=== PATIENT | male | born 1965 | race Caucasian/White ===

== ENCOUNTER 2024-04-10 12:12 | Inpatient (IN) | payer BC ==
--- NOTE | 2024-04-10 12:26 | ED ---
General Adult HPI - General Chief complaint: Syncope Stated complaint: AFIB Time Seen by Provider: 04/10/24 12:14 Source: patient, EMS, RN notes reviewed Mode of arrival: EMS Limitations: no limitations - History of Present Illness Initial comments: 58-year-old male presents emergency department via EMS from urgent care with chief complaint A-fib RVR. Patient states he has not felt well recently he was recently diagnosed with pneumonia. He states he woke up this morning diaphoretic, weak short of breath slightly dizzy. He went to urgent care was f ound to be in A-fib RVR he does but that he has a history of A-fib he is on flecainide he sees Dr. Quesada. Patient states that he has no history of CHF. Patient states he has had no chest pain. Patient denies any nausea vomiting diarrhea he does admit that he is on Lipitor, metformin and Xarelto along with his flecainide - Related Data Home Medications Medication Instructions Recorded Confirmed Albuterol Sulfate [Albuterol 2 puff INHALATION RT-BID 04/10/24 04/10/24 Sulfate Hfa] Atorvastatin [Lipitor] 10 mg PO DAILY 04/10/24 04/10/24 Azithromycin [Zithromax Z Pack] See Taper PO DAILY 04/10/24 04/10/24 Flecainide [Tambocor] 50 mg PO BID 04/10/24 04/10/24 Metoprolol Succinate (ER) [Toprol 100 mg PO DAILY 04/10/24 04/10/24 Xl] Multivitamins, Thera [Multivitamin 1 tab PO DAILY 04/10/24 04/10/24 (formulary)] Rivaroxaban [Xarelto] 20 mg PO DAILY 04/10/24 04/10/24 Semaglutide [Ozempic] 2 mg SQ TH 04/10/24 04/10/24 Testosterone [Axiron] 30 mg TOPICAL DAILY 04/10/24 04/10/24 Valsartan 320 mg PO DAILY 04/10/24 04/10/24 metFORMIN HCL 1,000 mg PO BID 04/10/24 04/10/24 Allergies Allergy/AdvReac Type Severity Reaction Status Date / Time lisinopril AdvReac Cough Verified 04/10/24 14:51 Review of Systems ROS Statement: Those systems with pertinent positive or pertinent negative responses have been documented in the HPI. ROS Other: All systems not noted in ROS Statement are negative. Past Medical History Past Medical History: Atrial Fibrillation, Diabetes Mellitus History of Any Multi-Drug Resistant Organisms: None Reported Past Surgical History: Hernia Repair, Tonsillectomy Past Psychological History: No Psychological Hx Reported Smoking Status: Never smoker Past Alcohol Use History: Rare Past Drug Use History: None Reported General Exam Limitations: no limitations General appearance: alert, in no apparent distress Head exam: Present: atraumatic, normocephalic, normal inspection Eye exam: Present: normal appearance, PERRL, EOMI. Absent: scleral icterus, conjunctival injection, periorbital swelling ENT exam: Present: normal exam, mucous membranes moist Neck exam: Present: normal inspection. Absent: tenderness, meningismus, lymphadenopathy Respiratory exam: Present: normal lung sounds bilaterally. Absent: respiratory distress, wheezes, rales, rhonchi, stridor Cardiovascular Exam: Present: tachycardia, irregular rhythm. Absent: regular rate, normal rhythm GI/Abdominal exam: Present: soft, normal bowel sounds. Absent: distended, tenderness, guarding, rebound, rigid Neurological exam: Present: alert, oriented X3 Course Vital Signs 04/10/24 04/10/24 04/10/24 12:13 12:37 12:44 Temperature 98.1 F Pulse Rate 161 H 154 H 142 H Pulse Rate [ Bilateral Radial] Respiratory 18 18 18 Rate Blood Pressure 99/74 115/72 81/60 Blood Pressure [Right Arm] O2 Sat by Pulse 97 98 97 Oximetry 04/10/24 04/10/24 04/10/24 12:51 13:18 13:48 Temperature Pulse Rate 150 H 130 H 108 H Pulse Rate [ Bilateral Radial] Respiratory 18 18 Rate Blood Pressure 88/77 108/74 91/67 Blood Pressure [Right Arm] O2 Sat by Pulse 97 Oximetry 04/10/24 04/10/24 04/10/24 14:10 15:00 15:12 Temperature Pulse Rate 125 H 116 H 103 H Pulse Rate [ Bilateral Radial] Respiratory 18 20 Rate Blood Pressure 105/73 106/73 Blood Pressure [Right Arm] O2 Sat by Pulse 98 98 Oximetry 04/10/24 04/10/24 04/10/24 15:22 15:30 16:00 Temperature Pulse Rate 111 H 125 H 112 H Pulse Rate [ Bilateral Radial] Respiratory 20 20 Rate Blood Pressure 93/61 91/71 Blood Pressure [Right Arm] O2 Sat by Pulse 96 97 Oximetry 04/10/24 04/10/24 04/10/24 16:30 17:00 17:30 Temperature Pulse Rate 116 H 109 H 102 H Pulse Rate [ Bilateral Radial] Respiratory 18 20 18 Rate Blood Pressure 100/67 97/59 91/69 Blood Pressure [Right Arm] O2 Sat by Pulse 97 95 97 Oximetry 04/10/24 04/10/24 04/10/24 18:15 20:00 20:40 Temperature 98.9 F Pulse Rate 98 115 H Pulse Rate [ 105 H Bilateral Radial] Respiratory 18 22 Rate Blood Pressure 100/67 Blood Pressure 102/86 [Right Arm] O2 Sat by Pulse 95 92 L Oximetry 04/10/24 04/11/24 04/11/24 20:51 00:00 04:00 Temperature 98.0 F 98.0 F Pulse Rate 118 H Pulse Rate [ 97 101 H Bilateral Radial] Respiratory 18 20 Rate Blood Pressure Blood Pressure 114/68 130/62 [Right Arm] O2 Sat by Pulse 91 L 91 L Oximetry 04/11/24 04/11/24 04/11/24 08:00 08:57 09:09 Temperature 97.8 F Pulse Rate 112 H 117 H Pulse Rate [ 94 Bilateral Radial] Respiratory 17 Rate Blood Pressure Blood Pressure 113/61 [Right Arm] O2 Sat by Pulse 90 L 92 L Oximetry 04/11/24 04/11/24 04/11/24 12:00 14:06 14:50 Temperature 98.3 F Pulse Rate 105 H 102 H Pulse Rate [ 97 Bilateral Radial] Respiratory 20 18 Rate Blood Pressure 97/61 Blood Pressure 110/73 [Right Arm] O2 Sat by Pulse 92 L 94 L Oximetry 04/11/24 15:10 Temperature Pulse Rate 96 Pulse Rate [ Bilateral Radial] Respiratory Rate Blood Pressure Blood Pressure [Right Arm] O2 Sat by Pulse Oximetry EKG Findings - EKG Comments: EKG Findings:: EKG performed at 12: 18 A-fib with RVR rate of 155 QRS 93 QT/QTc 269/356 - EKG Results: EKG: interpreted by DARA Medical Decision Making - Medical Decision Making Was pt. sent in by a medical professional or institution (, PA, COMMUNITY OUTREACH SPECIALIST, urgent care, hospital, or longterm...) When possible be specific @ -Urgent care Did you speak to anyone other than the patient for history (EMS, parent, family, police, friend...)? What history was obtained from this source @ -No Did you review nursing and triage notes (agree or disagree)? Why? @ -I reviewed and agree with nursing and triage notes Were old charts reviewed (outside hosp., previous admission, EMS record, old EKG, old radiological studies, urgent care reports/EKG's, longterm records)? Report findings @ -No old charts were reviewed Differential Diagnosis (chest pain, altered mental status, abdominal pain women, abdominal pain men, vaginal bleeding, weakness, fever, dyspnea, syncope, headache, dizziness, GI bleed, back pain, seizure, CVA, palpatations, mental health, musculoskeletal)? @ -Differential Dyspnea: Coronary syndrome, arrhythmia, tamponade, asthma, COPD, pulmonary embolism, pneumonia, pneumothorax, pulmonary effusion, anaphylaxis, diabetic ketoacidosis, flailed chest, pulmonary contusion, diaphragmatic rupture, anemia, neuromuscular, this is not meant to be an all-inclusive list. EKG interpreted by me (3pts min.). @ -As above X-rays interpreted by me (1pt min.). @ -X-ray shows retrocardiac pneumonia CT interpreted by me (1pt min.). @ -None done U/S interpreted by me (1pt. min.). @ -None done What testing was considered but not performed or refused? (CT, X-rays, U/S, labs)? Why? @ -None What meds were considered but not given or refused? Why? @ -None Did you discuss the management of the patient with other professionals (professionals i.e. , PA, COMMUNITY OUTREACH SPECIALIST, lab, RT, psych nurse, nursing home social worker, base filler operator, teacher, founder and chief technical officer, case management manager)? Give summary @ -EM for admission Was smoking cessation discussed for >3mins.? @ -No Was critical care preformed (if so, how long)? @ -35 minutes Were there social determinants of health that impacted care today? How? (Homelessness, low income, unemployed, alcoholism, drug addiction, transportation, low edu. Level, literacy, decrease access to med. care, usp, rehab)? @ -No Was there de-escalation of care discussed even if they declined (Discuss DNR or withdrawal of care, Hospice)? DNR status @ -No What co-morbidities impacted this encounter? (DM, HTN, Smoking, COPD, CAD, Cancer, CVA, ARF, Chemo, Hep., AIDS, mental health diagnosis, sleep apnea, morbid obesity)? @ -A-fib Was patient admitted / discharged? Hospital course, mention meds given and route, prescriptions, significant lab abnormalities, going to OR and other pertinent info. @ -Admitted patient is found to have A-fib RVR along with retrocardiac pneumonia. Patient started on Cardizem, IV fluids, antibiotics with consults with cardiology, pulmonary Undiagnosed new problem with uncertain prognosis? @ -No Drug Therapy requiring intensive monitoring for toxicity (Heparin, Nitro, Insulin, Cardizem)? @ -Cardizem Were any procedures done? @ -No Diagnosis/symptom? @ -A-fib RVR, pneumonia Acute, or Chronic, or Acute on Chronic? @ -Acute Uncomplicated (without systemic symptoms) or Complicated (systemic symptoms)? @ -Complicated Side effects of treatment? @ -No Exacerbation, Progression, or Severe Exacerbation? @ -No Poses a threat to life or bodily function? How? (Chest pain, USA, AR, pneumonia, PE, COPD, DKA, ARF, appy, cholecystitis, CVA, Diverticulitis, Homicidal, Suicid al, threat to staff... and all critical care pts) @ -Yes pneumonia, A-fib respiratory failure - Lab Data Result diagrams: 04/11/24 06:09 04/11/24 06:09 Lab Results 04/10/24 04/10/24 04/10/24 Range/Units 12:29 12:29 12:29 WBC 18.2 H (3.8-10.6) k/uL RBC 4.37 (4.30-5.90) m/uL Hgb 12.6 L (13.0-17.5) gm/dL Hct 39.6 (39.0-53.0) % MCV 90.7 (80.0-100.0) fL MCH 28.9 (25.0-35.0) pg MCHC 31.9 (31.0-37.0) g/dL RDW 13.1 (11.5-15.5) % Plt Count 288 (150-450) k/uL MPV 8.1 Neutrophils % 80 % Lymphocytes % 8 % Monocytes % 9 % Eosinophils % 1 % Basophils % 0 % Neutrophils # 14.5 H (1.3-7.7) k/uL Lymphocytes # 1.4 (1.0-4.8) k/uL Monocytes # 1.6 H (0-1.0) k/uL Eosinophils # 0.2 (0-0.7) k/uL Basophils # 0.1 (0-0.2) k/uL PT 14.1 H (10.0-12.5) sec INR 1.4 H (<1.2) APTT 34.4 H (22.0-30.0) sec D-Dimer (<0.60) mg/L FEU Sodium 135 L (137-145) mmol/L Potassium 4.0 (3.5-5.1) mmol/L Chloride 102 (98-107) mmol/L Carbon Dioxide 27 (22-30) mmol/L Anion Gap 6 mmol/L BUN 20 (9-20) mg/dL Creatinine 1.00 (0.66-1.25) mg/dL Est GFR (CKD-EPI)AfAm >90 (>60 ml/min/1.73 sqM) Est GFR (CKD-EPI)NonAf 82 (>60 ml/min/1.73 sqM) Glucose 136 H (74-99) mg/dL Calcium 8.7 (8.4-10.2) mg/dL Magnesium 1.9 (1.6-2.3) mg/dL Total Bilirubin 1.3 (0.2-1.3) mg/dL AST 61 H (17-59) U/L ALT 84 H (4-49) U/L Alkaline Phosphatase 177 H (38-126) U/L Troponin I (0.000-0.034) ng/mL NT-Pro-B Natriuret Pep pg/mL Total Protein 5.8 L (6.3-8.2) g/dL Albumin 3.0 L (3.5-5.0) g/dL 04/10/24 04/10/24 04/10/24 Range/Units 12:29 12:29 12:29 WBC (3.8-10.6) k/uL RBC (4.30-5.90) m/uL Hgb (13.0-17.5) gm/dL Hct (39.0-53.0) % MCV (80.0-100.0) fL MCH (25.0-35.0) pg MCHC (31.0-37.0) g/dL RDW (11.5-15.5) % Plt Count (150-450) k/uL MPV Neutrophils % % Lymphocytes % % Monocytes % % Eosinophils % % Basophils % % Neutrophils # (1.3-7.7) k/uL Lymphocytes # (1.0-4.8) k/uL Monocytes # (0-1.0) k/uL Eosinophils # (0-0.7) k/uL Basophils # (0-0.2) k/uL PT (10.0-12.5) sec INR (<1.2) APTT (22.0-30.0) sec D-Dimer 3.86 H (<0.60) mg/L FEU Sodium (137-145) mmol/L Potassium (3.5-5.1) mmol/L Chloride (98-107) mmol/L Carbon Dioxide (22-30) mmol/L Anion Gap mmol/L BUN (9-20) mg/dL Creatinine (0.66-1.25) mg/dL Est GFR (CKD-EPI)AfAm (>60 ml/min/1.73 sqM) Est GFR (CKD-EPI)NonAf (>60 ml/min/1.73 sqM) Glucose (74-99) mg/dL Calcium (8.4-10.2) mg/dL Magnesium (1.6-2.3) mg/dL Total Bilirubin (0.2-1.3) mg/dL AST (17-59) U/L ALT (4-49) U/L Alkaline Phosphatase (38-126) U/L Troponin I <0.012 (0.000-0.034) ng/mL NT-Pro-B Natriuret Pep 103 pg/mL Total Protein (6.3-8.2) g/dL Albumin (3.5-5.0) g/dL Critical Care Time Critical Care Time: Yes Total Critical Care Time: 35 Disposition Clinical Impression: Atrial fibrillation with RVR, Pneumonia Disposition: ADMITTED IP TO THIS HOSP
[2024-04-10] MEDS: SODIUM CHLORIDE 0.9% 1,000 ML IV STA (12:38)
[2024-04-10] MEDS: DILTIAZEM 125 MG in SODIUM CHLORIDE 0.9% 100 ML IV SCH (12:38)
[2024-04-10] MEDS: DILTIAZEM DRIP BOLUS FROM BAG 1 MG SOLN IV ONE (12:38)
[2024-04-10 12:40] LABS: Basophils # (A) 0.1 k/uL (0-0.2); Basophils % (A) 0 %; Eosinophils # (A) 0.2 k/uL (0-0.7); Eosinophils % (A) 1 %; HCT 39.6 % (39.0-53.0); HGB 12.6 gm/dL (13.0-17.5); Lymphocytes # (A) 1.4 k/uL (1.0-4.8); Lymphocytes % (A) 8 %; MCH 28.9 pg (25.0-35.0); MCHC 31.9 g/dL (31.0-37.0); MCV 90.7 fL (80.0-100.0); Mean Platelet Volume 8.1; Monocytes # (A) 1.6 k/uL (0-1.0); Monocytes % (A) 9 %; Neutrophils # (A) 14.5 k/uL (1.3-7.7); Neutrophils % (A) 80 %; Platelet Count 288 k/uL (150-450); RBC 4.37 m/uL (4.30-5.90); RDW 13.1 % (11.5-15.5); WBC 18.2 k/uL (3.8-10.6)
[2024-04-10 12:48] LABS: INR 1.4 (<1.2); Partial Thromboplastin Time 34.4 sec (22.0-30.0); Prothrombin Time 14.1 sec (10.0-12.5)
[2024-04-10 13:01] LABS: ALT 84 U/L (4-49); AST 61 U/L (17-59); African American GFR (CKD) >90 (>60 ml/min/1.73 sqM); Alkaline Phosphatase 177 U/L (38-126); Anion Gap 6 mmol/L; Blood Urea Nitrogen 20 mg/dL (9-20); Calcium 8.7 mg/dL (8.4-10.2); Carbon Dioxide 27 mmol/L (22-30); Chloride 102 mmol/L (98-107); Glucose 136 mg/dL (74-99); Magnesium 1.9 mg/dL (1.6-2.3); Non-African American GFR(CKD) 82 (>60 ml/min/1.73 sqM); Sodium 135 mmol/L (137-145); Total Bilirubin 1.3 mg/dL (0.2-1.3); Total Protein 5.8 g/dL (6.3-8.2)
--- NOTE | 2024-04-10 13:40 | XR ---
EXAMINATION TYPE: XR chest 2V DATE OF EXAM: 04/10/2024 COMPARISON: None INDICATION: Syncope TECHNIQUE: Frontal and lateral views of the chest are obtained. FINDINGS: The heart size is enlarged. The pulmonary vasculature is normal. Retrocardiac infiltrate likely present. Follow-up can be performed as clinically indicated. IMPRESSION: 1. Retrocardiac.. Correlate for atelectasis or pneumonia. [facility], , 04/10/2024 1:38 PM
[2024-04-10] MEDS ORDERED: NITROGLYCERIN SL TABS 0.4 MG TAB SUBLINGUAL PRN (13:56)
[2024-04-10] MEDS: SODIUM CHLORIDE 0.9% 500 ML 500 ML IV ONE (14:08)
[2024-04-10] MEDS: SODIUM CHLORIDE 0.9% 1,000 ML IV SCH (14:21)
[2024-04-10] MEDS: AZITHROMYCIN 500 MG in SODIUM CHLORIDE 0.9% 250 ML IVPB STA (15:04)
[2024-04-10] MEDS: IPRATROPIUM-ALBUTEROL 3 ML NEB INHALATION SCH (15:11)
[2024-04-10] MEDS ORDERED: ALBUTEROL HFA INHALER INHALATION SCH (20:00)
[2024-04-10] MEDS: FLECAINIDE 50 MG TAB PO SCH (22:05)
--- NOTE | 2024-04-10 22:34 | CT ---
EXAMINATION TYPE: CT chest angio for PE DATE OF EXAM: 04/10/2024 COMPARISON: NONE HISTORY: pt sent in by PCP after being seen for syncopal episode yesterday, pt A-fib RVR hx of a-fib elevated d-dimer/ sob CT DLP: 818.5 mGycm. Automated Exposure Control for Dose Reduction was Utilized. CONTRAST: CTA scan of the thorax is performed with IV Contrast, patient injected with 100 mL of Isovue 370, pul monary embolism protocol. MIP Images are created on CT scanner and reviewed. FINDINGS: LUNGS: There is moderate size nonsimple left-sided pleural fluid collection with lobulated components . There is associated left lung compressive atelectasis. Right lung is clear. No right-sided pleural effusion. No pneumothorax seen bilaterally. MEDIASTINUM: Suboptimal study with most dense contrast in SVC. There is however no convincing CT steve dence for acute pulmonary embolism. Some enhancement of the aorta without aneurysm or dissection. No cardiomegaly. Trace pericardial effusion.. OTHER: Nonspecific 1.7 cm hypodense left adrenal mass axial image 164. IMPRESSION: 1. Suboptimal study without acute pulmonary embolism. 2. Moderate-size lobulated left sided pleural fluid collection with associated compressive atelectasi s. Consider imaging guided thoracocentesis to further evaluate. 3. Nonspecific 1.7 cm left adrenal mass. Benign etiology favored based on size. Consider nonemergent adrenal protocol CT or MRI to further evaluate. [facility], , 04/10/2024 10:32 PM
--- NOTE | 2024-04-10 23:49 | HP ---
HISTORY AND PHYSICAL CHIEF COMPLAINT: Syncope, weakness. HISTORY OF PRESENT ILLNESS: This 58-year-old gentleman with a past history of multiple medical problems, diabetes, atrial ablation was complains of weakness. The patient was recently diagnosed of pneumonia and the patient is on outpatient antibiotic. There is no history of fever, rigors, chills. The chest x-ray showed some retrocardiac shadow. PAST MEDICAL HISTORY: Reviewed include diabetes mellitus, atrial fibrillation. Rest of the history and rest of the chart is also reviewed HOME MEDICATIONS: Not available. ALLERGIES: None. FAMILY HISTORY: No history of heart disease or strokes in the family. SOCIAL HISTORY: No history of smoke or alcohol. REVIEW OF SYSTEMS: Fourteen-point review is negative. PHYSICAL EXAMINATION: VITAL SIGNS: Pulse is 124 irregular, blood pressure 104/76, respiration 18. HEENT: Conjunctivae normal. CARDIOVASCULAR: S1, S2. Irregular. RESPIRATIONS: Few scattered rhonchi. Expiratory wheezing. ABDOMEN: Soft, obese. LEGS: No edema. NERVOUS SYSTEM: Nonfocal. LABORATORY DATA: WBC 18.2. Rest of the labs are noted. ASSESSMENT: 1. Atrial fibrillation with fast ventricular rate. 2. Possible pneumonia with bronchospasm, rule out retrocardiac mass lesion. 3. Elevated WBC. 4. Elevated INR. 5. Elevated LFTs. 6. History of diabetes type 2. RECOMMENDATION: This 58-year-old gentleman presented with multiple complex medical issues, we will monitor the patient closely. Continue the current medications and continue symptomatic treatment. We will initiate broad-spectrum IV antibiotics, Cardizem. Otherwise, I would also recommend cardiology consultation and CT scan of the chest. I would also recommend D-dimer. Guarded prognosis. Further recommendations to follow. Dr. Figueroa will follow tomorrow. MMODL / IJN: [id number] /
[2024-04-11] MEDS: metFORMIN 500 MG TAB PO SCH (03:13)
[2024-04-11 06:35] LABS: Basophils % (A) 0 %; Eosinophils # (A) 0.1 k/uL (0-0.7); Eosinophils % (A) 1 %; HCT 36.6 % (39.0-53.0); HGB 11.7 gm/dL (13.0-17.5); Lymphocytes # (A) 1.4 k/uL (1.0-4.8); Lymphocytes % (A) 9 %; MCH 28.9 pg (25.0-35.0); MCHC 32.1 g/dL (31.0-37.0); MCV 90.3 fL (80.0-100.0); Mean Platelet Volume 8.2; Monocytes # (A) 1.3 k/uL (0-1.0); Monocytes % (A) 8 %; Neutrophils # (A) 12.2 k/uL (1.3-7.7); Neutrophils % (A) 79 %; Platelet Count 280 k/uL (150-450); RBC 4.05 m/uL (4.30-5.90); WBC 15.4 k/uL (3.8-10.6)
[2024-04-11 06:59] LABS: ALT 71 U/L (4-49); AST 40 U/L (17-59); African American GFR (CKD) >90 (>60 ml/min/1.73 sqM); Albumin 2.6 g/dL (3.5-5.0); Alkaline Phosphatase 204 U/L (38-126); Anion Gap 4 mmol/L; Blood Urea Nitrogen 19 mg/dL (9-20); Calcium 8.4 mg/dL (8.4-10.2); Carbon Dioxide 22 mmol/L (22-30); Chloride 107 mmol/L (98-107); Glucose 131 mg/dL (74-99); Non-African American GFR(CKD) 83 (>60 ml/min/1.73 sqM); Potassium 4.1 mmol/L (3.5-5.1); Sodium 133 mmol/L (137-145); Total Protein 5.2 g/dL (6.3-8.2)
[2024-04-11] MEDS ORDERED: ASPIRIN 325 MG TAB PO SCH (09:00)
[2024-04-11] MEDS ORDERED: TESTOSTERONE 30 MG/1.5 ML TOPICAL SCH (09:00)
[2024-04-11] MEDS: VALSARTAN 160 MG TAB PO SCH (09:40)
[2024-04-11] MEDS: ATORVASTATIN 10 MG TAB PO SCH (09:41)
[2024-04-11] MEDS: MULTIVITAMINS, THERA 1 EACH TAB PO SCH (09:41)
[2024-04-11] MEDS: RIVAROXABAN 20 MG TAB PO SCH (09:41)
[2024-04-11] MEDS: METOPROLOL SUCCINATE (ER) 100 MG TAB.ER.24H PO SCH (09:41)
--- NOTE | 2024-04-11 12:32 | P.CRDCN ---
History of Present Illness Consult date: 04/11/24 Reason for Consult (text): afib with rvr History of present illness: This is a 58-year-old male patient of Dr. Quesada with past medical history of persistent atrial fibrillation maintaining sinus rhythm on low-dose flecainide, hypertension, dyslipidemia, obesity, diabetes mellitus type 2. We have been asked to evaluate the patient for A-fib with RVR. Patient states that starting about 1 week ago he was not feeling good. He saw his PCP on and was given antibiotics and nebulizer in the office and he was sent home on inhaler an d antibiotics. On Thursday he was still not feeling very good and was almost completed the course of antibiotics. He decided to come into the hospital for further evaluation. He denies any chest pain, pressure or tightness. He denies dizziness. No palpitations. He does complain of cough and a little wheezing and a little sputum production that started out is ramirez and bloody and now is yellow. He states he has had occasional fever. He is a non-smoker. He has not had any caffeine intake for the past week but usually drinks a 20 ounce coffee daily. He has rare alcohol intake. Blood pressure 130/62, heart rate 101-221, pulse ox 91% on 2 L nasal cannula. Patient is status post 2 L of IV fluid and started on antibiotics and Cardizem drip is currently at 10 mg/h. Patient is seen today in the emergency center waiting for bed on the cardiac stepdown unit. EKG: Chest x-ray: Retrocardiac infiltrate. CTA of the chest is suboptimal study without acute pulmonary embolism. Moderate size loculated left-sided pleural fluid collection with associated compressive atelectasis. Consider thoracentesis. Nonspecific 1.7 cm left adrenal mass. Laboratory studies: WBC 18.2, hemoglobin 9.7, D-dimer 3.86. Sodium 133, potassium 4.1, creatinine 0.99, BUN 19. Troponin negative x 1. proBNP 103. Home cardiac medications: Atorvastatin 10 mg daily, flecainide 50 mg twice daily, Toprol XL 100 mg daily, Xarelto 20 mg daily, valsartan 320 mg daily Review Of Systems: At the time of my exam: CONSTITUTIONAL: Denies fever or chills. HEENT: Denies blurred vision, vision changes, or eye pain. Denies hemoptysis CARDIOVASCULAR: Denies chest pain. Denies orthopnea. Denies PND. Denies palpitations RESPIRATORY: Reports dyspnea on exertion, reports sputum production, reports shortness of breath. GASTROINTESTINAL: Denies abdominal pain. Denies nausea or vomiting. HEMATOLOGIC: Denies bleeding disorders. GENITOURINARY: Denies any blood in urine. SKIN: Denies puritis. Denies rash. Physical examination: Gen: This is a 58-year-old male appears to be in no acute distress. VS: reviewed HEENT: Head is atraumatic, normocephalic. Pupils equal, round. Sclerae is anicteric. NECK: Supple. No JVD. LUNGS: Breath sounds significantly diminished and expiratory wheeze. No intercostal retractions. HEART: Irregular rate and rhythm. No murmur. Tachycardic. ABDOMEN: Soft No tenderness. EXTREMITIES: No pedal edema. No calf tenderness. NEUROLOGICAL: Patient is awake, alert and oriented x3. Assessment: Persistent atrial fibrillation with RVR Persistent atrial fibrillation previously maintaining sinus rhythm on low-dose flecainide Pneumonia Left-sided pleural effusion Hypertension Dyslipidemia Diabetes mellitus type 2 Plan: Resume patient's home cardiac medications with the following changes Hold flecainide for now Discontinue aspirin Increase Cardizem drip to 15 mg/h Add consult for pulmonary medicine regarding pleural effusion and pneumonia Obtain 2-D echocardiogram and Doppler study to assess cardiac structure and function Further recommendations to follow based upon clinical course Thank you kindly for this consultation. Nurse practitioner note has been reviewed, I agree with documented findings and plan of care. Patient was seen and examined. Past Medical History Past Medical History: Atrial Fibrillation, Diabetes Mellitus History of Any Multi-Drug Resistant Organisms: None Reported Past Surgical History: Hernia Repair, Tonsillectomy Past Psychological History: No Psychological Hx Reported Smoking Status: Never smoker Past Alcohol Use History: Rare Past Drug Use History: None Reported Medications and Allergies Home Medications Medication Instructions Recorded Confirmed Type Albuterol Sulfate [Albuterol 2 puff INHALATION RT-BID 04/10/24 04/10/24 History Sulfate Hfa] Atorvastatin [Lipitor] 10 mg PO DAILY 04/10/24 04/10/24 History Azithromycin [Zithromax Z Pack] See Taper PO DAILY 04/10/24 04/10/24 History Flecainide [Tambocor] 50 mg PO BID 04/10/24 04/10/24 History Metoprolol Succinate (ER) [Toprol 100 mg PO DAILY 04/10/24 04/10/24 History Xl] Multivitamins, Thera [Multivitamin 1 tab PO DAILY 04/10/24 04/10/24 History (formulary)] Rivaroxaban [Xarelto] 20 mg PO DAILY 04/10/24 04/10/24 History Semaglutide [Ozempic] 2 mg SQ TH 04/10/24 04/10/24 History Testosterone [Axiron] 30 mg TOPICAL DAILY 04/10/24 04/10/24 History Valsartan 320 mg PO DAILY 04/10/24 04/10/24 History metFORMIN HCL 1,000 mg PO BID 04/10/24 04/10/24 History Allergies Allergy/AdvReac Type Severity Reaction Status Date / Time lisinopril AdvReac Cough Verified 04/10/24 14:51 Physical Exam Vitals: Vital Signs Temp Pulse Pulse Resp BP BP Pulse Ox 04/11/24 04:00 98.0 F 101 H 20 130/62 91 L 04/11/24 00:00 98.0 F 97 18 114/68 91 L 04/10/24 20:51 118 H 04/10/24 20:40 115 H 04/10/24 20:00 98.9 F 105 H 22 102/86 92 L 04/10/24 18:15 98 18 100/67 95 04/10/24 17:30 102 H 18 91/69 97 04/10/24 17:00 109 H 20 97/59 95 04/10/24 16:30 116 H 18 100/67 97 04/10/24 16:00 112 H 20 91/71 97 04/10/24 15:30 125 H 20 93/61 96 04/10/24 15:22 111 H 04/10/24 15:12 103 H 04/10/24 15:00 116 H 20 106/73 98 04/10/24 14:10 125 H 18 105/73 98 04/10/24 13:48 108 H 18 91/67 97 04/10/24 13:18 130 H 18 108/74 04/10/24 12:51 150 H 88/77 04/10/24 12:44 142 H 18 81/60 97 04/10/24 12:37 154 H 18 115/72 98 09/22/24 12:13 98.1 F 161 H 18 99/74 97 Intake and Output 04/10/24 04/11/24 04/11/24 22:59 06:59 14:59 Intake Total 362.417 Output Total 500 500 Balance -137.583 -500 Intake: Intake, IV Titration 12.417 Amount Diltiazem 125 mg In 12.417 Sodium Chloride 0.9% 100 ml @ 5 MG/HR 5 mls/hr IV .Q24H ON LICENSE OF [facility] Rx#:[id number] Oral 350 Output: Urine 500 500 Other: Weight 131.542 kg Results 04/11/24 06:09 04/11/24 06:09 Cardiac Enzymes 04/10/24 04/10/24 04/11/24 Range/Units 12:29 12:29 06:09 AST 61 H 40 (17-59) U/L Troponin I <0.012 (0.000-0.034) ng/mL Coagulation 04/10/24 Range/Units 12:29 PT 14.1 H (10.0-12.5) sec APTT 34.4 H (22.0-30.0) sec CBC 04/10/24 04/11/24 Range/Units 12:29 06:09 WBC 18.2 H 15.4 H (3.8-10.6) k/uL RBC 4.37 4.05 L (4.30-5.90) m/uL Hgb 12.6 L 11.7 L (13.0-17.5) gm/dL Hct 39.6 36.6 L (39.0-53.0) % Plt Count 288 280 (150-450) k/uL Comprehensive Metabolic Panel 04/10/24 04/11/24 Range/Units 12:29 06:09 Sodium 135 L 133 L (137-145) mmol/L Potassium 4.0 4.1 (3.5-5.1) mmol/L Chloride 102 107 (98-107) mmol/L Carbon Dioxide 27 22 (22-30) mmol/L BUN 20 19 (9-20) mg/dL Creatinine 1.00 0.99 (0.66-1.25) mg/dL Glucose 136 H 131 H (74-99) mg/dL Calcium 8.7 8.4 (8.4-10.2) mg/dL AST 61 H 40 (17-59) U/L ALT 84 H 71 H (4-49) U/L Alkaline Phosphatase 177 H 204 H (38-126) U/L Total Protein 5.8 L 5.2 L (6.3-8.2) g/dL Albumin 3.0 L 2.6 L (3.5-5.0) g/dL Current Medications Generic Name Dose Route Start Last Admin Trade Name Freq PRN Reason Stop Dose Admin Albuterol/Ipratropium 3 ml 04/10/24 15:00 04/10/24 20:38 Ipratropium-Albuterol 3 Ml Neb INHALATION 3 ml RT-TID BARBRA Administration Aspirin 325 mg 04/11/24 09:00 Aspirin 325 Mg Tab PO DAILY BARBRA Atorvastatin Calcium 10 mg 04/11/24 09:00 Atorvastatin 10 Mg Tab PO DAILY BARBRA Flecainide Acetate 50 mg 04/10/24 21:00 04/10/24 22:05 Flecainide 50 Mg Tab PO Not Given BID BARBRA Diltiazem HCl 125 mg/ Sodium 125 mls @ 5 mls/hr 04/10/24 12:40 04/10/24 15:07 Chloride IV 10 mg/hr .Q24H BARBRA 10 mls/hr Infusion 5 MG/HR Ceftriaxone Sodium 2 gm/ 50 mls @ 100 mls/hr 04/10/24 14:00 04/10/24 14:22 Sodium Chloride IVPB 100 mls/hr Q24HR BARBRA Administration Protocol Azithromycin 500 mg/ Sodium 250 mls @ 250 mls/hr 04/11/24 16:00 Chloride IVPB 04/12/24 16:59 Q24H BARBRA Protocol Sodium Chloride 1,000 mls @ 20 mls/hr 04/10/24 14:00 04/10/24 14:21 Saline 0.9% IV 75 mls/hr .Q24H BARBRA Administration Metformin HCl 1,000 mg 04/10/24 21:00 04/11/24 08:21 Metformin 500 Mg Tab PO Not Given AC-BID BARBRA Metoprolol Succinate 100 mg 04/11/24 09:00 Metoprolol Succinate (Er) 100 Mg Tab.Er.24h PO DAILY ON LICENSE OF [facility] Multivitamins 1 each 04/11/24 09:00 Multivitamins, Thera 1 Each Tab PO DAILY ON LICENSE OF [facility] Nitroglycerin 0.4 mg 04/10/24 13:56 Nitroglycerin Sl Tabs 0.4 Mg Tab SUBLINGUAL Q5M PRN Chest Pain Rivaroxaban 20 mg 04/11/24 09:00 Rivaroxaban 20 Mg Tab PO DAILY ON LICENSE OF [facility] Protocol Valsartan 320 mg 04/11/24 09:00 Valsartan 160 Mg Tab PO DAILY ON LICENSE OF [facility] Intake and Output 04/10/24 04/11/24 04/11/24 22:59 06:59 14:59 Intake Total 362.417 Output Total 500 500 Balance -137.583 -500 Intake: Intake, IV Titration 12.417 Amount Diltiazem 125 mg In 12.417 Sodium Chloride 0.9% 100 ml @ 5 MG/HR 5 mls/hr IV .Q24H ON LICENSE OF [facility] Rx#:[id number] Oral 350 Output: Urine 500 500 Other: Weight 131.542 kg 04/11/24 06:09 04/11/24 06:09
[2024-04-11] MEDS ORDERED: DEXTROSE 50% SYRINGE 50 ML IVP PRN ×2 (14:24)
--- NOTE | 2024-04-11 14:43 | P.PN ---
Subjective Progress Note Date: 04/11/24 This is a 58-year-old gentleman admitted with persistent atrial fibrillation with RVR, maintained on Cardizem drip. CTA reporting moderate size loculated left-sided pleural fluid collection with associated compressive atelectasis, nonspecific 1.7 cm left adrenal mass-benign etiology favored based on size. Maintained on azithromycin, ceftriaxone. Afebrile, WBC Improving, decreased to 15.4. Hemoglobin 11.7, MCV 90.3, platelets 280, electrolytes and renal function stable. T. bili 1, AST normalized, ALT decreased to 71, alk phos increased to 204. Maintaining O2 sats in the low 90s on 2 L nasal cannula. Objective - Vital Signs Vital signs: Vital Signs Temp 98.3 F 04/11/24 12:00 Pulse 105 H 04/11/24 14:06 Resp 18 04/11/24 14:06 BP 97/61 04/11/24 14:06 Pulse Ox 94 L 04/11/24 14:06 FiO2 Intake & Output 04/10/24 04/11/24 04/11/24 18:59 06:59 18:59 Intake Total 12.417 350 Output Total 1000 Balance 12.417 -650 Weight 131.542 kg 131.542 kg Intake: Intake, IV Titration 12.417 Amount Diltiazem 125 mg In 12.417 Sodium Chloride 0.9% 100 ml @ 5 MG/HR 5 mls/hr IV .Q24H [facility] Rx#:[id number] Oral 350 Output: Urine 1000 - Exam PHYSICAL EXAM: VITAL SIGNS: [As above] GENERAL: Alert and oriented x 3, sitting up on stretcher, no acute distress. HEENT: Conjunctivae normal. eyes normal. NECK: Supple, no JVD. CARDIOVASCULAR: S1, S2,irregular rate and rhythm , tachycardic ,no murmur RESPIRATION: Unlabored, breath sounds diminished in the bases. ABDOMEN: Soft, nontender . No guarding. no masses palpable. +BS LEGS: No edema. no swelling, no calf tenderness NERVOUS SYSTEM: Cranial N 2-12 grossly normal. No focal deficits. Strength and sensation grossly intact. Skin: Warm and dry, no rash - Labs CBC & Chem 7: 04/11/24 06:09 04/11/24 06:09 Labs: Abnormal Lab Results - Last 24 Hours (Table) 0904/11/24 04/11/24 Range/Units 12:29 06:09 06:09 WBC 15.4 H (3.8-10.6) k/uL RBC 4.05 L (4.30-5.90) m/uL Hgb 11.7 L (13.0-17.5) gm/dL Hct 36.6 L (39.0-53.0) % Neutrophils # 12.2 H (1.3-7.7) k/uL Monocytes # 1.3 H (0-1.0) k/uL D-Dimer 3.86 H (<0.60) mg/L FEU Sodium 133 L (137-145) mmol/L Glucose 131 H (74-99) mg/dL ALT 71 H (4-49) U/L Alkaline Phosphatase 204 H (38-126) U/L Total Protein 5.2 L (6.3-8.2) g/dL Albumin 2.6 L (3.5-5.0) g/dL Assessment and Plan Assessment: Persistent atrial fibrillation with RVR Left-sided pleural effusion, possible pneumonia, pulmonary following Elevated D-dimer, pulmonary embolism ruled out Leukocytosis secondary to the above Diabetes mellitus, hemoglobin A1c pending Incidental finding of nonspecific 1.7 cm left adrenal mass-benign etiology favored based on size. Further evaluation with outpatient CT/MRI Hypertension, dyslipidemia Plan: Continue on current medication regimen ,monitoring and symptomatic treatment. Antiarrhythmics as per cardiology. Continue IV antibiotics. Procalcitonin ordered .low-dose Lantus insulin, sliding scale and Accu-Cheks initiated. Hemoglobin A1c ordered. diet adjusted to consistent carb. The impression and plan of care has been dictated as directed. : I performed a history and examination of this patient, discussed the same with the dictator. I agree with the dictator's note ,documented as a scribe. Any additional findings or plans will be noted.
[2024-04-11] MEDS: PANTOPRAZOLE 40 MG/10 ML VIAL IVP SCH (15:53)
[2024-04-11] MEDS: INSULIN DETEMIR (LEVEMIR) 100 UNIT/ML SYR SQ SCH (15:54)
[2024-04-11] MEDS: AZITHROMYCIN 500 MG in SODIUM CHLORIDE 0.9% 250 ML IVPB SCH (15:54)
[2024-04-11 16:26] LABS: Glucose,Whole Blood 450 mg/dL (70-110)
[2024-04-11] MEDS: INSULIN ASPART (NovoLOG) 100 UNIT/ML VIAL SQ SCH (16:47)
--- NOTE | 2024-04-11 18:05 | P.CNPUL ---
History of Present Illness Consult date: 04/11/24 Reason for consult: dyspnea, pleural effusion History of present illness: This is a 58-year-old male patient who was hospitalized for left-sided chest pain. The patient has been experiencing pain, pleuritic in nature along the left lateral chest area and he has contacted his primary care physician and pneumonia was suspected and the patient was given a course of Zithromax on outpatient basis. His pain is somewhat subsided. He continues to have shortness of breath and ongoing pain along the left chest. No fever or chills. No significant cough sputum production or hemoptysis. He is currently on 2 L of oxygen by nasal cannula. The patient is also known to have chronic atrial fibrillation and at time of admission the patient was in A-fib RVR and the patient was started on a Cardizem drip. Hypertension hyperlipidemia diabetes mellitus type 2 has comorbid conditions. The patient is admitted on long-term anticoagulation. He has been maintained on Xarelto on outpatient basis. I saw the patient in the emergency department. He was room air oxygen. Reviewed the CAT scan of the chest and the patient has already developed a loculated left- sided pleural effusion which is moderate in size along with compressive atelectasis in the left lung base. There was also a nonspecific 1.7 cm left adrenal lesion, likely benign based on size. The white cell count is at 18.2 at time of admission with a hemoglobin 12.6 and a platelet count of 288. INR is 1.4. BUN is 20 with a creatinine of 1 and a sodium levels at 135. LFTs were mi ldly elevated with an AST of 61, ALT of 84, alkaline phosphatase of 177, troponins are negative, proBNP level is 103. The patient is currently on a combination of Rocephin and Zithromax. Also on a Cardizem drip for rate control. He also takes metoprolol 100 mg p.o. daily. He is on normal saline at rate of 20 cc an hour. Home medications have been resumed. No previous bouts of pneumonias. He is a non-smoker. Review of Systems Constitutional: Reports fatigue, Reports weakness Eyes: denies as per HPI, denies blurred vision, denies bulging eye, denies decreased vision, denies diplopia, denies discharge, denies dry eye, denies irritation, denies itching, denies pain, denies photophobia, denies loss of peripheral vision, denies loss of vision, denies tunnel vision/blind spots Ears: deny: decreased hearing, ear discharge, earache, tinnitus Ears, nose, mouth and throat: Reports as per HPI Breasts: absent: as per HPI, gynecomastia Cardiovascular: Reports chest pain, Reports decreased exercise tolerance, Reports irregular heart beat Respiratory: Reports cough, Reports dyspnea Gastrointestinal: Reports as per HPI Genitourinary: Reports as per HPI Musculoskeletal: Reports as per HPI Musculoskeletal: absent: ankle pain, ankle stiffness, ankle swelling, as per HPI, elbow pain, elbow stiffness, elbow swelling, foot pain, foot stiffness, foot swelling, hand pain, hand stiffness, hand swelling, hip pain, hip stiffness, hip swelling, knee pain, knee stiffness, knee swelling, shoulder pain, shoulder stiffness, shoulder swelling, wrist pain, wrist stiffness, wrist swelling Integumentary: Reports as per HPI Neurological: Reports as per HPI Psychiatric: Reports as per HPI Endocrine: Reports as per HPI Hematologic/Lymphatic: Reports as per HPI Allergic/Immunologic: Reports as per HPI Past Medical History Past Medical History: Atrial Fibrillation, Diabetes Mellitus, Hyperlipidemia, Hypertension History of Any Multi-Drug Resistant Organisms: None Reported Past Surgical History: Hernia Repair, Tonsillectomy Past Psychological History: No Psychological Hx Reported Smoking Status: Never smoker Past Alcohol Use History: Rare Past Drug Use History: None Reported Medications and Allergies Home Medications Medication Instructions Recorded Confirmed Type Albuterol Sulfate [Albuterol 2 puff INHALATION RT-BID 04/10/24 04/10/24 History Sulfate Hfa] Atorvastatin [Lipitor] 10 mg PO DAILY 04/10/24 04/10/24 History Azithromycin [Zithromax Z Pack] See Taper PO DAILY 04/10/24 04/10/24 History Flecainide [Tambocor] 50 mg PO BID 04/10/24 04/10/24 History Metoprolol Succinate (ER) [Toprol 100 mg PO DAILY 04/10/24 04/10/24 History Xl] Multivitamins, Thera [Multivitamin 1 tab PO DAILY 04/10/24 04/10/24 History (formulary)] Rivaroxaban [Xarelto] 20 mg PO DAILY 04/10/24 04/10/24 History Semaglutide [Ozempic] 2 mg SQ TH 04/10/24 04/10/24 History Testosterone [Axiron] 30 mg TOPICAL DAILY 04/10/24 04/10/24 History Valsartan 320 mg PO DAILY 04/10/24 04/10/24 History metFORMIN HCL 1,000 mg PO BID 04/10/24 04/10/24 History Allergies Allergy/AdvReac Type Severity Reaction Status Date / Time lisinopril AdvReac Cough Verified 04/10/24 14:51 Physical Exam Vitals: Vital Signs Temp Pulse Pulse Resp BP BP Pulse Ox 04/11/24 09:09 117 H 04/11/24 08:57 112 H 92 L 04/11/24 04:00 98.0 F 101 H 20 130/62 91 L 04/11/24 00:00 98.0 F 97 18 114/68 91 L 04/10/24 20:51 118 H 04/10/24 20:40 115 H 04/10/24 20:00 98.9 F 105 H 22 102/86 92 L 04/10/24 18:15 98 18 100/67 95 04/10/24 17:30 102 H 18 91/69 97 04/10/24 17:00 109 H 20 97/59 95 04/10/24 16:30 116 H 18 100/67 97 04/10/24 16:00 112 H 20 91/71 97 04/10/24 15:30 125 H 20 93/61 96 04/10/24 15:22 111 H 04/10/24 15:12 103 H 04/10/24 15:00 116 H 20 106/73 98 04/10/24 14:10 125 H 18 105/73 98 04/10/24 13:48 108 H 18 91/67 97 04/10/24 13:18 130 H 18 108/74 04/10/24 12:51 150 H 88/77 04/10/24 12:44 142 H 18 81/60 97 04/10/24 12:37 154 H 18 115/72 98 04/10/24 12:13 98.1 F 161 H 18 99/74 97 Intake and Output 04/10/24 04/11/24 04/11/24 22:59 06:59 14:59 Intake Total 362.417 Output Total 500 500 Balance -137.583 -500 Intake: Intake, IV Titration 12.417 Amount Diltiazem 125 mg In 12.417 Sodium Chloride 0.9% 100 ml @ 5 MG/HR 5 mls/hr IV .Q24H [facility] Rx#:[id number] Oral 350 Output: Urine 500 500 Other: Weight 131.542 kg General Appearance the patient is calm and comfortable no acute distress. The patient is currently on room air oxygen. Head exam was generally normal. There was no scleral icterus or corneal arcus. Mucous membranes were moist. Neck was supple and without jugular venous distension, thyromegaly, or carotid bruits. Carotids were easily palpable bilaterally. There was no adenopathy. Lung sounds are diminished in the left lung base along with dullness to percussion. Heart sounds are irregular consistent with atrial fibrillation. Positive S1-S2, no significant murmurs appreciated. Abdominal exam revealed normal bowel sounds. The abdomen was soft, non-tender, and without masses, organomegaly, or appreciable enlargement of the abdominal aorta. Examination of the extremities revealed easily palpable radial, femoral and pedal pulses. There was no cyanosis, clubbing or edema. Examination of the skin revealed no evidence of significant rashes, suspicious appearing nevi or other concerning lesions. Neurologically, the patient is awake and alert and the patient does not have any focal neurological deficit. Cranial nerves are essentially intact. Results - Laboratory Findings CBC and BMP: 04/11/24 06:09 04/11/24 06:09 PT/INR, D-dimer PT 14.1 sec (10.0-12.5) H 04/10/24 12:29 INR 1.4 (<1.2) H 04/10/24 12:29 D-Dimer 3.86 mg/L FEU (<0.60) H 04/10/24 12:29 Abnormal lab findings: Abnormal Labs 04/10/24 04/10/24 04/10/24 12:29 12:29 12:29 WBC 18.2 H RBC Hgb 12.6 L Hct Neutrophils # 14.5 H Monocytes # 1.6 H PT 14.1 H INR 1.4 H APTT 34.4 H D-Dimer Sodium 135 L Glucose 136 H AST 61 H ALT 84 H Alkaline Phosphatase 177 H Total Protein 5.8 L Albumin 3.0 L 04/10/24 04/11/24 04/11/24 12: 06:09 06:09 WBC 15.4 H RBC 4.05 L Hgb 11.7 L Hct 36.6 L Neutrophils # 12.2 H Monocytes # 1.3 H PT INR APTT D-Dimer 3.86 H Sodium 133 L Glucose 131 H AST ALT 71 H Alkaline Phosphatase 204 H Total Protein 5.2 L Albumin 2.6 L - Diagnostic Findings Chest x-ray: image reviewed CT scan - chest: image reviewed Assessment and Plan Plan: Parapneumonic loculated left-sided pleural effusion, likely complicated left- sided pleural effusion post pneumonia. Empyema is considered to be less likely. Nevertheless, the fluid is quite loculated and this point in time. Pleuritic left-sided chest wall pain likely secondary to pneumonia and the pat ient was treated on outpatient basis with Zithromax Shortness of breath secondary to above Acute hypoxic respiratory failure, currently on room air oxygen Chronic atrial fibrillation with rapid ventricular response time of admission currently on a Cardizem drip Hypertension Hyperlipidemia Diabetes mellitus Plan Continue current antibiotic coverage The pleural fluid is loculated. Thoracentesis may not be enough to evacuate the left-sided pleural effusion. Will consult with the patient radiology for a insertion of a pigtail catheter. The patient would likely need subsequent thrombolytic therapy through the pigtail catheter to successfully evacuate a loculated left pleural effusion Hold anticoagulation for now in preparation for pigtail catheter insertion Cardizem drip for rate control Continue insulin Will continue to follow.
[2024-04-11 20:15] LABS: Glucose,Whole Blood 253 mg/dL (70-110)
[2024-04-12 06:15] LABS: Glucose,Whole Blood 112 mg/dL (70-110)
[2024-04-12 08:10] LABS: Basophils % (A) 0 %; Eosinophils # (A) 0.2 k/uL (0-0.7); Eosinophils % (A) 1 %; HCT 38.4 % (39.0-53.0); HGB 12.1 gm/dL (13.0-17.5); Lymphocytes # (A) 1.5 k/uL (1.0-4.8); Lymphocytes % (A) 8 %; MCH 28.8 pg (25.0-35.0); MCHC 31.5 g/dL (31.0-37.0); MCV 91.2 fL (80.0-100.0); Monocytes # (A) 1.3 k/uL (0-1.0); Monocytes % (A) 7 %; Neutrophils # (A) 15.3 k/uL (1.3-7.7); Neutrophils % (A) 82 %; Platelet Count 333 k/uL (150-450); RBC 4.21 m/uL (4.30-5.90); RDW 13.3 % (11.5-15.5); WBC 18.7 k/uL (3.8-10.6)
[2024-04-12 08:44] LABS: ALT 81 U/L (4-49); AST 45 U/L (17-59); African American GFR (CKD) >90 (>60 ml/min/1.73 sqM); Albumin 2.7 g/dL (3.5-5.0); Alkaline Phosphatase 233 U/L (38-126); Anion Gap 8 mmol/L; Blood Urea Nitrogen 18 mg/dL (9-20); Calcium 8.5 mg/dL (8.4-10.2); Carbon Dioxide 23 mmol/L (22-30); Chloride 104 mmol/L (98-107); Glucose 113 mg/dL (74-99); Non-African American GFR(CKD) 89 (>60 ml/min/1.73 sqM); Potassium 4.2 mmol/L (3.5-5.1); Sodium 135 mmol/L (137-145); Total Protein 5.6 g/dL (6.3-8.2)
--- NOTE | 2024-04-12 10:58 | CA ---
Transthoracic Echo Report Name: Pritesh David Age: 58 Gender: M : 1965 Exam Date: 04/11/2024 14:22 Exam Location: [place] [facility] Ht (in): 76 Wt (lb): 290 Ordering Physician: Leona White Attending/Referring Phys: [id number], Cindy Gizzard Peeler Lalitha Dutton RDCS Procedure CPT: Indications: LVF Cardiac Hx: Technical Quality: Technically difficult study Contrast 1: Definity Total Dose (mL): 2 Contrast 2: Total Dose (mL): MEASUREMENTS (Male / Female) Normal Values 2D ECHO LV Diastolic Diameter PLAX 4.0 cm 4.2 - 5.9 / 3.9 - 5.3 cm LV Systolic Diameter PLAX 2.5 cm IVS Diastolic Thickness 1.5 cm 0.6 - 1.0 / 0.6 - 0.9 cm LVPW Diastolic Thickness 1.6 cm 0.6 - 1.0 / 0.6 - 0.9 cm LV Relative Wall Thickness 0.8 RV Internal Dim ED PLAX 3.2 cm LA Systolic Diameter LX 3.8 cm 3.0 - 4.0 / 2.7 - 3.8 cm LA Volume 71.1 cm??? 18 - 58 / 22 - 52 cm??? LA Volume Index 26.4 cm???/m??? 16 - 28 cm???/m??? M-MODE Aortic Root Diameter MM 3.6 cm AV Cusp Separation MM 2.4 cm DOPPLER AV Peak Velocity 167.3 cm/s AV Peak Gradient 11.2 mmHg MV Area PHT 5.0 cm??? MV Deceleration Time 139.1 ms TR Peak Velocity 281.4 cm/s TR Peak Gradient 31.7 mmHg Right Ventricular Systolic Press 35.5 mmHg FINDINGS Left Ventricle Left ventricular ejection fraction is estimated at 55-60 %. Left ventricular cavity size normal. Moderate concentric left ventricular hypertrophy. Right Ventricle Normal right ventricular size. Moderate pulmonary hypertension. Right Atrium Normal right atrial size. No right atrial thrombus or mass seen. Left Atrium Normal left atrial size. No left atrial thrombus or mass present. Mitral Valve Structurally normal mitral valve. No mitral stenosis, regurgitation or prolapse. Aortic Valve Trileaflet aortic valve. No aortic valve stenosis or regurgitation. Tricuspid Valve Structurally normal tricuspid valve. Mild tricuspid regurgitation. Pulmonic Valve Pulmonic valve not well visualized. . No pulmonic regurgitation. Pericardium No pericardial or pleural effusion. Aorta Normal size aortic root and proximal ascending aorta. CONCLUSIONS Technically difficult study for interpretation Normal LV systolic function Poorly visualized intracardiac valves Previewed by: Dr. Malvin Earl MD (Electronically Signed) Final Date: 12 April 2024 10:57
[2024-04-12] MEDS: HYDROmorphone 0.5 MG/0.5 ML SYRINGE IVP STA ×2 (11:11→22:50)
--- NOTE | 2024-04-12 11:22 | US ---
Ultrasound-guided therapeutic and diagnostic thoracentesis DATE OF EXAM: 04/12/2024 CLINICAL HISTORY: Left pleural effusion Ultrasound demonstrated a small amount of pleural fluid. The procedure was to be performed in CT scan . IMPRESSION: 1. Small left pleural effusion.. [facility], , 04/12/2024 11:20 AM
[2024-04-12] MEDS ORDERED: HYDROcodone/APAP 5-325MG 1 EACH TAB PO PRN (11:53)
[2024-04-12 11:56] LABS: Glucose,Whole Blood 115 mg/dL (70-110)
--- NOTE | 2024-04-12 14:29 | P.PN ---
Subjective Progress Note Date: 04/12/24 This is a 58-year-old gentleman admitted with persistent atrial fibrillation with RVR, maintained on Cardizem drip. CTA reporting moderate size loculated left-sided pleural fluid collection with associated compressive atelectasis, nonspecific 1.7 cm left adrenal mass-benign etiology favored based on size. Maintained on azithromycin, ceftriaxone. Afebrile, WBC Improving, decreased to 15.4. Hemoglobin 11.7, MCV 90.3, platelets 280, electrolytes and renal function stable. T. bili 1, AST normalized, ALT decreased to 71, alk phos increased to 204. Maintaining O2 sats in the low 90s on 2 L nasal cannula. 04/12/2024 continues on ceftriaxone, azithromycin evaluated by pulmonary recommending pigtail catheter placement with probable thrombolytic therapy secondary to left sided loculated pleural effusion, complicated possibly secondary to post pneumonia. Maintaining O2 sats of 94% on room air. Denies shortness of breath. Reports "coughing spells with sweats". Afebrile, WBC increased to 18.7. maintained on Cardizem drip, telemetry atrial fibrillation with controlled ventricular rate. Bicarb 23, BUN 18, creatinine 0.94. Hemoglobin A1c 7.1. Blood sugars better controlled on Levemir and NovoLog sliding scale insulins. Objective - Vital Signs Vital signs: Vital Signs Temp 98.8 F 04/12/24 07:46 Pulse 105 H 04/12/24 10:30 Resp 18 04/12/24 10:30 BP 125/78 04/12/24 10:30 Pulse Ox 97 04/12/24 10:30 FiO2 Intake & Output 04/11/24 04/12/24 04/12/24 18:59 06:59 18:59 Intake Total 112.583 186 Balance 112.583 186 Weight 134.7 kg Intake: Intake, IV Titration 112.583 186 Amount Diltiazem 125 mg In 112.583 186 Sodium Chloride 0.9% 100 ml @ 15 MG/HR 15 mls/hr IV .Q8H20M [facility] Rx#: [id number] Other: Voiding Method Urinal Urinal Urinal # Voids 1 - Exam PHYSICAL EXAM: VITAL SIGNS: [As above] GENERAL: Alert and oriented x 3, sitting up on stretcher, no acute distress. HEENT: Conjunctivae normal. eyes normal. NECK: Supple, no JVD. CARDIOVASCULAR: S1, S2,irregular rate and rhythm , tachycardic ,no murmur RESPIRATION: Unlabored, breath sounds diminished in the bases fine expiratory wheezing. ABDOMEN: Soft, nontender . No guarding. no masses palpable. +BS LEGS: No edema. no swelling, no calf tenderness NERVOUS SYSTEM: Cranial N 2-12 grossly normal. No focal deficits. Strength and sensation grossly intact. Skin: Warm and dry, no rash. - Labs CBC & Chem 7: 04/12/24 07:28 04/12/24 07:28 Labs: Abnormal Lab Results - Last 24 Hours (Table) 04/11/24 04/11/24 04/12/24 Range/Units 16:24 20:13 06:13 WBC (3.8-10.6) k/uL RBC (4.30-5.90) m/uL Hgb (13.0-17.5) gm/dL Hct (39.0-53.0) % Neutrophils # (1.3-7.7) k/uL Monocytes # (0-1.0) k/uL Sodium (137-145) mmol/L Glucose (74-99) mg/dL POC Glucose (mg/dL) 450 H 253 H 112 H (70-110) mg/dL Hemoglobin A1c (<=6.0) % ALT (4-49) U/L Alkaline Phosphatase (38-126) U/L Total Protein (6.3-8.2) g/dL Albumin (3.5-5.0) g/dL 04/12/24 04/12/24 04/12/24 Range/Units 07:28 07:28 07:28 WBC 18.7 H (3.8-10.6) k/uL RBC 4.21 L (4.30-5.90) m/uL Hgb 12.1 L (13.0-17.5) gm/dL Hct 38.4 L (39.0-53.0) % Neutrophils # 15.3 H (1.3-7.7) k/uL Monocytes # 1.3 H (0-1.0) k/uL Sodium 135 L (137-145) mmol/L Glucose 113 H (74-99) mg/dL POC Glucose (mg/dL) (70-110) mg/dL Hemoglobin A1c 7.1 H (<=6.0) % ALT 81 H (4-49) U/L Alkaline Phosphatase 233 H (38-126) U/L Total Protein 5.6 L (6.3-8.2) g/dL Albumin 2.7 L (3.5-5.0) g/dL Microbiology - Last 24 Hours (Table) 04/10/24 14:27 Blood Culture - Preliminary Blood Assessment and Plan Assessment: Chronic atrial fibrillation with RVR on Cardizem drip Left-sided pleural effusion, loculated; per pulmonary likely complicated left- sided pleural effusion post pneumonia. Procalcitonin normal, 0.19 Pleuritic left-sided chest wall pain secondary to the above. Shortness of breath secondary to the above with acute hypoxic respiratory failure Elevated D-dimer, pulmonary embolism ruled out Leukocytosis secondary to the above Diabetes mellitus, hemoglobin A1c 7.1 Incidental finding of nonspecific 1.7 cm left adrenal mass-benign etiology favored based on size. Further evaluation with outpatient CT/MRI Hypertension, dyslipidemia Plan: Continue on current medication regimen ,monitoring and symptomatic treatment. Antiarrhythmics as per cardiology. Continue IV antibiotics. Pigtail catheter pending with interventional radiology ,probable thrombolytic therapy. Follow closely with pulmonary. The impression and plan of care has been dictated as directed. : I performed a history and examination of this patient, discussed the same with the dictator. I agree with the dictator's note ,documented as a scribe. Any additional findings or plans will be noted.
--- NOTE | 2024-04-12 14:52 | P.PN ---
Subjective Progress Note Date: 04/12/24 This is a 58-year-old male patient who was hospitalized for left-sided chest pain. The patient has been experiencing pain, pleuritic in nature along the left lateral chest area and he has contacted his primary care physician and pneumonia was suspected and the patient was given a course of Zithromax on outpatient basis. His pain is somewhat subsided. He continues to have shortness of breath and ongoing pain along the left chest. No fever or chills. No significant cough sputum production or hemoptysis. He is currently on 2 L of oxygen by nasal cannula. The patient is also known to have chronic atrial fibrillation and at time of admission the patient was in A-fib RVR and the patient was started on a Cardizem drip. Hypertension hyperlipidemia diabetes mellitus type 2 has comorbid conditions. The patient is admitted on long-term anticoagulation. He has been maintained on Xarelto on outpatient basis. I saw the patient in the emergency department. He was room air oxygen. Reviewed the CAT scan of the chest and the patient has already developed a loculated left- sided pleural effusion which is moderate in size along with compressive atelectasis in the left lung base. There was also a nonspecific 1.7 cm left adrenal lesion, likely benign based on size. The white cell count is at 18.2 at time of admission with a hemoglobin 12.6 and a platelet count of 288. INR is 1.4. BUN is 20 with a creatinine of 1 and a sodium levels at 135. LFTs were mildly elevated with an AST of 61, ALT of 84, alkaline phosphatase of 177, troponins are negative, proBNP level is 103. The patient is currently on a combination of Rocephin and Zithromax. Also on a Cardizem drip for rate control. He also takes metoprolol 100 mg p.o. daily. He is on normal saline at rate of 20 cc an hour. Home medications have been resumed. No previous bouts of pneumonias. He is a non-smoker. 04/12/2024, the patient is being seen for a follow-up. The patient is doing well. The patient is stable. Denies having any specific complaints. Remains on room air oxygen. The patient underwent an ultrasound-guided pigtail catheter insertion today. Immediately, there was 100 cc of fluid removed and the fluid was sent for analysis. The patient remains on Rocephin and Zithromax. The white count of 18.7 with a hemoglobin 12.1. Electrolytes are all within normal limits. Blood culture is still negative. No other new complaints otherwise for now. Objective - Vital Signs Vital signs: Vital Signs Temp 98.8 F 04/12/24 07:46 Pulse 105 H 04/12/24 10:30 Resp 18 04/12/24 10:30 BP 125/78 04/12/24 10:30 Pulse Ox 97 04/12/24 10:30 FiO2 Intake & Output 04/11/24 04/12/24 04/12/24 18:59 06:59 18:59 Intake Total 112.583 186 Balance 112.583 186 Weight 134.7 kg Intake: Intake, IV Titration 112.583 186 Amount Diltiazem 125 mg In 112.583 186 Sodium Chloride 0.9% 100 ml @ 15 MG/HR 15 mls/hr IV .Q8H20M [facility] Rx#: [id number] Other: Voiding Method Urinal Urinal Urinal # Voids 1 - Exam General Appearance the patient is calm and comfortable no acute distress. The patient is currently on room air oxygen. Head exam was generally normal. There was no scleral icterus or corneal arcus. Mucous membranes were moist. Neck was supple and without jugular venous distension, thyromegaly, or carotid bruits. Carotids were easily palpable bilaterally. There was no adenopathy. Lung sounds are diminished in the left lung base along with dullness to percussion. Heart sounds are irregular consistent with atrial fibrillation. Positive S1-S2, no significant murmurs appreciated. Abdominal exam revealed normal bowel sounds. The abdomen was soft, non-tender, and without masses, organomegaly, or appreciable enlargement of the abdominal aorta. Examination of the extremities revealed easily palpable radial, femoral and pedal pulses. There was no cyanosis, clubbing or edema. Examination of the skin revealed no evidence of significant rashes, suspicious appearing nevi or other concerning lesions. Neurologically, the patient is awake and alert and the patient does not have any focal neurological deficit. Cranial nerves are essentially intact. - Labs CBC & Chem 7: 04/12/24 07:28 04/12/24 07:28 Labs: Abnormal Lab Results - Last 24 Hours (Table) 04/11/24 04/11/24 04/12/24 Range/Units 16:24 20:13 06:13 WBC (3.8-10.6) k/uL RBC (4.30-5.90) m/uL Hgb (13.0-17.5) gm/dL Hct (39.0-53.0) % Neutrophils # (1.3-7.7) k/uL Monocytes # (0-1.0) k/uL Sodium (137-145) mmol/L Glucose (74-99) mg/dL POC Glucose (mg/dL) 450 H 253 H 112 H (70-110) mg/dL Hemoglobin A1c (<=6.0) % ALT (4-49) U/L Alkaline Phosphatase (38-126) U/L Total Protein (6.3-8.2) g/dL Albumin (3.5-5.0) g/dL 04/12/24 04/12/24 04/12/24 Range/Units 07:28 07:28 07:28 WBC 18.7 H (3.8-10.6) k/uL RBC 4.21 L (4.30-5.90) m/uL Hgb 12.1 L (13.0-17.5) gm/dL Hct 38.4 L (39.0-53.0) % Neutrophils # 15.3 H (1.3-7.7) k/uL Monocytes # 1.3 H (0-1.0) k/uL Sodium 135 L (137-145) mmol/L Glucose 113 H (74-99) mg/dL POC Glucose (mg/dL) (70-110) mg/dL Hemoglobin A1c 7.1 H (<=6.0) % ALT 81 H (4-49) U/L Alkaline Phosphatase 233 H (38-126) U/L Total Protein 5.6 L (6.3-8.2) g/dL Albumin 2.7 L (3.5-5.0) g/dL Microbiology - Last 24 Hours (Table) 04/10/24 14:27 Blood Culture - Preliminary Blood Assessment and Plan Plan: Parapneumonic loculated left-sided pleural effusion, likely complicated left- sided pleural effusion post pneumonia. cNevertheless, the fluid is quite loculated and this point in time. The patient is status post CAT scan guided pigtail catheter insertion. The fluid was serous. Fluid analysis still pending. Pleuritic left-sided chest wall pain likely secondary to pneumonia and the patient was treated on outpatient basis with Zithromax Shortness of breath secondary to above Acute hypoxic respiratory failure, currently on room air oxygen Chronic atrial fibrillation with rapid ventricular response time of admission currently on a Cardizem drip Hypertension Hyperlipidemia Diabetes mellitus Plan Continue current antibiotic coverage Pigtail catheter was inserted. Will monitor the output. Daily chest x-ray Management of atrial fibrillation Cultures are negative Management of A-fib per cardiology Anticoagulation will be resumed Will continue to follow.
--- NOTE | 2024-04-12 14:53 | P.PN ---
Subjective Progress Note Date: 04/12/24 Reason for Consult (text): afib with rvr History of present illness: This is a 58-year-old male patient of Dr. Quesada with past medical history of persistent atrial fibrillation maintaining sinus rhythm on low-dose flecainide, hypertension, dyslipidemia, obesity, diabetes mellitus type 2. We have been asked to evaluate the patient for A-fib with RVR. Patient states that starting about 1 week ago he was not feeling good. He saw his PCP on and was given antibiotics and nebulizer in the office and he was sent home on inhaler and antibiotics. On Thursday he was still not feeling very good and was almost completed the course of antibiotics. He decided to come into the hospital for further evaluation. He denies any chest pain, pressure or tightness. He denies dizziness. No palpitations. He does complain of cough and a little wheezing and a little sputum production that started out is ramirez and bloody and now is yellow. He states he has had occasional fever. He is a non-smoker. He has not had any caffeine intake for the past week but usually drinks a 20 ounce coffee daily. He has rare alcohol intake. Blood pressure 130/62, heart rate 101-221, pulse ox 91% on 2 L nasal cannula. Patient is status post 2 L of IV fluid and started on antibiotics and Cardizem drip is currently at 10 mg/h. Patient is seen today in the emergency center waiting for bed on the cardiac stepdown unit. EKG: Atrial fibrillation at 155 bpm Chest x-ray: Retrocardiac infiltrate. CTA of the chest is suboptimal study without acute pulmonary embolism. Moderate size loculated left-sided pleural fluid collection with associated compressive atelectasis. Consider thoracentesis. Nonspecific 1.7 cm left adrenal mass. Laboratory studies: WBC 18.2, hemoglobin 9.7, D-dimer 3.86. Sodium 133, potassium 4.1, creatinine 0.99, BUN 19. Troponin negative x 1. proBNP 103. Home cardiac medications: Atorvastatin 10 mg daily, flecainide 50 mg twice justin ly, Toprol XL 100 mg daily, Xarelto 20 mg daily, valsartan 320 mg daily 04/12 Patient is seen today in follow-up on the cardiac stepdown unit. He remains in atrial fibrillation running between 100 and 120s. He has been on a Cardizem drip. Patient is status post thoracentesis. Breathing status is improved. Blood pressure 125/78, heart rate 105, pulse ox 97% on room air. Repeat blood work reveals WBC 18.7, hemoglobin 12.1.. And 0.94. ALT 81, alkaline phosphatase 233. Echocardiogram reveals EF of 55 to 60%, poorly visualized intracardiac valves, technically difficult study for interpretation. Physical examination: Gen: This is a 58-year-old male appears to be in no acute distress. VS: reviewed HEENT: Head is atraumatic, normocephalic. Pupils equal, round. Sclerae is anicteric. NECK: Supple. No JVD. LUNGS: Breath sounds significantly diminished and expiratory wheeze. No intercostal retractions. HEART: Irregular rate and rhythm. No murmur. ABDOMEN: Soft No tenderness. EXTREMITIES: No pedal edema. No calf tenderness. NEUROLOGICAL: Patient is awake, alert and oriented x3. Assessment: Persistent atrial fibrillation with RVR, now rate controlled Persistent atrial fibrillation previously maintaining sinus rhythm on low-dose flecainide Pneumonia Parapneumonic left-sided pleural effusion Hypertension Dyslipidemia Diabetes mellitus type 2 Plan: Continue patient's home cardiac medications with the following changes Continue to hold flecainide Discontinue Cardizem drip Start patient on oral Cardizem 60 mg 3 times daily Continue decreased valsartan 160 mg daily Consult with pulmonary medicine appreciated Further recommendations to follow based upon clinical course Nurse practitioner note has been reviewed, I agree with documented findings and plan of care. Patient was seen and examined. Objective - Vital Signs Vital signs: Vital Signs Temp 98.3 F 04/12/24 12:00 Pulse 105 H 04/12/24 12:00 Resp 18 04/12/24 12:00 BP 118/80 04/12/24 12:00 Pulse Ox 95 04/12/24 12:00 FiO2 Intake & Output 04/11/24 04/12/24 04/12/24 18:59 06:59 18:59 Intake Total 112.583 186 Balance 112.583 186 Weight 134.7 kg Intake: Intake, IV Titration 112.583 186 Amount Diltiazem 125 mg In 112.583 186 Sodium Chloride 0.9% 100 ml @ 15 MG/HR 15 mls/hr IV .Q8H20M [facility] Rx#: [id number] Other: Voiding Method Urinal Urinal Urinal # Voids 1 - Labs CBC & Chem 7: 04/12/24 07:28 04/12/24 07:28 Labs: Abnormal Lab Results - Last 24 Hours (Table) 04/11/24 04/11/24 04/12/24 Range/Units 16:24 20:13 06:13 WBC (3.8-10.6) k/uL RBC (4.30-5.90) m/uL Hgb (13.0-17.5) gm/dL Hct (39.0-53.0) % Neutrophils # (1.3-7.7) k/uL Monocytes # (0-1.0) k/uL Sodium (137-145) mmol/L Glucose (74-99) mg/dL POC Glucose (mg/dL) 450 H 253 H 112 H (70-110) mg/dL Hemoglobin A1c (<=6.0) % ALT (4-49) U/L Alkaline Phosphatase (38-126) U/L Total Protein (6.3-8.2) g/dL Albumin (3.5-5.0) g/dL 04/12/24 04/12/24 04/12/24 Range/Units 07:28 07:28 07:28 WBC 18.7 H (3.8-10.6) k/uL RBC 4.21 L (4.30-5.90) m/uL Hgb 12.1 L (13.0-17.5) gm/dL Hct 38.4 L (39.0-53.0) % Neutrophils # 15.3 H (1.3-7.7) k/uL Monocytes # 1.3 H (0-1.0) k/uL Sodium 135 L (137-145) mmol/L Glucose 113 H (74-99) mg/dL POC Glucose (mg/dL) (70-110) mg/dL Hemoglobin A1c 7.1 H (<=6.0) % ALT 81 H (4-49) U/L Alkaline Phosphatase 233 H (38-126) U/L Total Protein 5.6 L (6.3-8.2) g/dL Albumin 2.7 L (3.5-5.0) g/dL 04/12/24 Range/Units 11:53 WBC (3.8-10.6) k/uL RBC (4.30-5.90) m/uL Hgb (13.0-17.5) gm/dL Hct (39.0-53.0) % Neutrophils # (1.3-7.7) k/uL Monocytes # (0-1.0) k/uL Sodium (137-145) mmol/L Glucose (74-99) mg/dL POC Glucose (mg/dL) 115 H (70-110) mg/dL Hemoglobin A1c (<=6.0) % ALT (4-49) U/L Alkaline Phosphatase (38-126) U/L Total Protein (6.3-8.2) g/dL Albumin (3.5-5.0) g/dL Microbiology - Last 24 Hours (Table) 04/10/24 14:27 Blood Culture - Preliminary Blood
--- NOTE | 2024-04-12 14:57 | CT ---
EXAMINATION TYPE: CT chest tube insertion DATE OF EXAM: 04/12/2024 COMPARISON: 04/12/2024 HISTORY: left sided chest tube CT DLP: 1329 mGycm The procedure is discussed with the patient, the risks, complications, benefits and alternatives, wer e discussed and any questions were answered. Informed consent was obtained. The patient is placed p judy on the CT table, prepped and draped in the usual sterile fashion. Utilizing a 21 core needle access into left pleural space and there is patchy residual neck below 0.0 18 guidewire. Conversion to an 0.035 system, serial dilation 8 Belgian and placement of an [address] teresa catheter within the left pleural space. Small sample of serous fluid was obtained and sent to pathology. Pathology pending. All elements of maximal barrier and sterile technique were utilized. The patient remained stable throughout the procedure with no immediate postprocedural complication. IMPRESSION: 1. Successful CT guided left chest tube insertion. [facility], , 04/12/2024 2:55 PM
[2024-04-12 16:42] LABS: Glucose,Whole Blood 159 mg/dL (70-110)
[2024-04-12] MEDS: DILTIAZEM ORAL 60 MG TAB PO SCH (16:51)
[2024-04-12 20:27] LABS: Glucose,Whole Blood 131 mg/dL (70-110)
[2024-04-12 20:42] LABS: Glucose, BF Source Pleural Fluid; Glucose, Body Fluid 40 mg/dL; LDH, Body Fluid Source Pleural Fluid; T. Protein, Body Fluid Source Pleural Fluid; Total Protein, Body Fluid >3600 mg/dL
[2024-04-12 21:34] LABS: Appearance,BF Hazy (Clear)
[2024-04-13] MEDS: ACETAMINOPHEN TAB 325 MG TAB PO PRN (02:20)
[2024-04-13 06:15] LABS: Glucose,Whole Blood 104 mg/dL (70-110)
[2024-04-13 08:18] LABS: Basophils # (A) 0.1 k/uL (0-0.2); Basophils % (A) 1 %; Eosinophils # (A) 0.3 k/uL (0-0.7); Eosinophils % (A) 2 %; HCT 38.5 % (39.0-53.0); HGB 12.7 gm/dL (13.0-17.5); Lymphocytes # (A) 1.2 k/uL (1.0-4.8); Lymphocytes % (A) 7 %; MCH 29.8 pg (25.0-35.0); MCV 90.5 fL (80.0-100.0); Mean Platelet Volume 9.1; Monocytes # (A) 0.9 k/uL (0-1.0); Monocytes % (A) 5 %; Neutrophils # (A) 14.6 k/uL (1.3-7.7); Neutrophils % (A) 84 %; Platelet Count 344 k/uL (150-450); RBC 4.25 m/uL (4.30-5.90); RDW 13.7 % (11.5-15.5); WBC 17.3 k/uL (3.8-10.6)
[2024-04-13] MEDS: VALSARTAN 160 MG TAB PO SCH (08:38)
--- NOTE | 2024-04-13 08:45 | XR ---
EXAMINATION TYPE: XR chest 1V DATE OF EXAM: 04/13/2024 COMPARISON: 04/10/2024 HISTORY: Left pleural effusion TECHNIQUE: Single frontal view of the chest is obtained. FINDINGS: Left-sided pigtail catheter seen. There is left-sided consolidation and small amount of pl eural fluid. Right lung clear. Heart is enlarged. Arthropathy of the shoulders and degenerative prado e of the spine. IMPRESSION: Left-sided consolidation and small pleural effusion. No sizable pneumothorax. [facility], , 04/13/2024 8:43 AM
[2024-04-13] MEDS: DILTIAZEM ORAL 30 MG TAB PO STA (11:24)
[2024-04-13 12:13] LABS: Glucose,Whole Blood 117 mg/dL (70-110)
--- NOTE | 2024-04-13 13:16 | P.PN ---
Subjective Progress Note Date: 04/13/24 Reason for Consult (text): afib with rvr History of present illness: This is a 58-year-old male patient of Dr. Quesada with past medical history of persistent atrial fibrillation maintaining sinus rhythm on low-dose flecainide, hypertension, dyslipidemia, obesity, diabetes mellitus type 2. We have been asked to evaluate the patient for A-fib with RVR. Patient states that starting about 1 week ago he was not feeling good. He saw his PCP on and was given antibiotics and nebulizer in the office and he was sent home on inhaler and antibiotics. On Thursday he was still not feeling very good and was almost completed the course of antibiotics. He decided to come into the hospital for further evaluation. He denies any chest pain, pressure or tightness. He denies dizziness. No palpitations. He does complain of cough and a little wheezing and a little sputum production that started out is ramirez and bloody and now is yellow. He states he has had occasional fever. He is a non-smoker. He has not had any caffeine intake for the past week but usually drinks a 20 ounce coffee daily. He has rare alcohol intake. Blood pressure 130/62, heart rate 101-221, pulse ox 91% on 2 L nasal cannula. Patient is status post 2 L of IV fluid and started on antibiotics and Cardizem drip is currently at 10 mg/h. Patient is seen today in the emergency center waiting for bed on the cardiac stepdown unit. EKG: Atrial fibrillation at 155 bpm Chest x-ray: Retrocardiac infiltrate. CTA of the chest is suboptimal study without acute pulmonary embolism. Moderate size loculated left-sided pleural fluid collection with associated compressive atelectasis. Consider thoracentesis. Nonspecific 1.7 cm left adrenal mass. Laboratory studies: WBC 18.2, hemoglobin 9.7, D-dimer 3.86. Sodium 133, potassium 4.1, creatinine 0.99, BUN 19. Troponin negative x 1. proBNP 103. Home cardiac medications: Atorvastatin 10 mg daily, flecainide 50 mg twice justin ly, Toprol XL 100 mg daily, Xarelto 20 mg daily, valsartan 320 mg daily 04/12 Patient is seen today in follow-up on the cardiac stepdown unit. He remains in atrial fibrillation running between 100 and 120s. He has been on a Cardizem drip. Patient is status post thoracentesis. Breathing status is improved. Blood pressure 125/78, heart rate 105, pulse ox 97% on room air. Repeat blood work reveals WBC 18.7, hemoglobin 12.1.. And 0.94. ALT 81, alkaline phosphatase 233. Echocardiogram reveals EF of 55 to 60%, poorly visualized intracardiac valves, technically difficult study for interpretation. 04/13 Patient heart rate has been fluctuating up to 160 per patient's nurse. Patient complains of cough now with yellow sputum production. He has had a temperature max of 101.2 most likely triggering the tachycardia. He remains in atrial fibrillation. He states his breathing is better today. Chest tube remains in place. Blood pressure 112/77, heart rate 128, pulse ox 97% on room air. Repeat blood work reveals WBC 17.3, hemoglobin 12.7. Repeat chest x-ray reveals left- sided consolidation and small pleural effusion. No sizable pneumothorax. Physical examination: Gen: This is a 58-year-old male appears to be in no acute distress. VS: reviewed HEENT: Head is atraumatic, normocephalic. Pupils equal, round. Sclerae is anicteric. NECK: Supple. No JVD. LUNGS: Breath sounds significantly diminished and expiratory wheeze. No intercostal retractions. HEART: Irregular rate and rhythm. No murmur. ABDOMEN: Soft No tenderness. EXTREMITIES: No pedal edema. No calf tenderness. NEUROLOGICAL: Patient is awake, alert and oriented x3. Assessment: Persistent atrial fibrillation with RVR, now rate controlled Persistent atrial fibrillation previously maintaining sinus rhythm on low-dose flecainide Pneumonia Parapneumonic left-sided pleural effusion Hypertension Dyslipidemia Diabetes mellitus type 2 Plan: Continue current cardiac medications: Atorvastatin, Toprol XL 100 mg daily, Xarelto 20 mg daily, valsartan 160 mg daily Increase Cardizem to 90 mg 3 times daily Continue to hold flecainide Consult with pulmonary medicine appreciated Further recommendations to follow based upon clinical course Nurse practitioner note has been reviewed, I agree with documented findings and plan of care. Patient was seen and examined. Objective - Vital Signs Vital signs: Vital Signs Temp 98.8 F 04/13/24 08:23 Pulse 128 H 04/13/24 09:25 Resp 20 04/13/24 08:23 BP 126/93 04/13/24 08:23 Pulse Ox 94 L 04/13/24 08:23 FiO2 Intake & Output 04/12/24 04/13/24 04/13/24 18:59 06:59 18:59 Intake Total 360 Output Total 1197 914 679 Balance -4148 -888 -037 Weight 135.9 kg Intake: Oral 360 Output: Chest Tube Drainage 180 100 Pleural Catheter Left 180 100 Posterior Chest Urine 1120 323 625 Other: Voiding Method Urinal Urinal # Voids 1 2 - Labs CBC & Chem 7: 04/13/24 07:50 04/12/24 07:28 Labs: Abnormal Lab Results - Last 24 Hours (Table) 04/12/24 04/12/24 04/12/24 Range/Units 11:30 11:53 16:41 WBC (3.8-10.6) k/uL RBC (4.30-5.90) m/uL Hgb (13.0-17.5) gm/dL Hct (39.0-53.0) % Neutrophils # (1.3-7.7) k/uL POC Glucose (mg/dL) 115 H 159 H (70-110) mg/dL Fluid Appearance Hazy A (Clear) 04/12/24 04/13/24 Range/Units 20:26 07:50 WBC 17.3 H (3.8-10.6) k/uL RBC 4.25 L (4.30-5.90) m/uL Hgb 12.7 L (13.0-17.5) gm/dL Hct 38.5 L (39.0-53.0) % Neutrophils # 14.6 H (1.3-7.7) k/uL POC Glucose (mg/dL) 131 H (70-110) mg/dL Fluid Appearance (Clear) Microbiology - Last 24 Hours (Table) 04/10/24 14:27 Blood Culture - Preliminary Blood
--- NOTE | 2024-04-13 16:39 | P.PN ---
Subjective Progress Note Date: 04/13/24 This is a 58-year-old male patient who was hospitalized for left-sided chest pain. The patient has been experiencing pain, pleuritic in nature along the left lateral chest area and he has contacted his primary care physician and pneumonia was suspected and the patient was given a course of Zithromax on outpatient basis. His pain is somewhat subsided. He continues to have shortness of breath and ongoing pain along the left chest. No fever or chills. No significant cough sputum production or hemoptysis. He is currently on 2 L of oxygen by nasal cannula. The patient is also known to have chronic atrial fibrillation and at time of admission the patient was in A-fib RVR and the patient was started on a Cardizem drip. Hypertension hyperlipidemia diabetes mellitus type 2 has comorbid conditions. The patient is admitted on long-term anticoagulation. He has been maintained on Xarelto on outpatient basis. I saw the patient in the emergency department. He was room air oxygen. Reviewed the CAT scan of the chest and the patient has already developed a loculated left- sided pleural effusion which is moderate in size along with compressive atelectasis in the left lung base. There was also a nonspecific 1.7 cm left adrenal lesion, likely benign based on size. The white cell count is at 18.2 at time of admission with a hemoglobin 12.6 and a platelet count of 288. INR is 1.4. BUN is 20 with a creatinine of 1 and a sodium levels at 135. LFTs were mildly elevated with an AST of 61, ALT of 84, alkaline phosphatase of 177, troponins are negative, proBNP level is 103. The patient is currently on a combination of Rocephin and Zithromax. Also on a Cardizem drip for rate control. He also takes metoprolol 100 mg p.o. daily. He is on normal saline at rate of 20 cc an hour. Home medications have been resumed. No previous bouts of pneumonias. He is a non-smoker. 04/12/2024, the patient is being seen for a follow-up. The patient is doing well. The patient is stable. Denies having any specific complaints. Remains on room air oxygen. The patient underwent an ultrasound-guided pigtail catheter insertion today. Immediately, there was 100 cc of fluid removed and the fluid was sent for analysis. The patient remains on Rocephin and Zithromax. The white count of 18.7 with a hemoglobin 12.1. Electrolytes are all within normal limits. Blood culture is still negative. No other new complaints otherwise for now. On 04/13/2024, the patient is status post pigtail catheter insertion. Pleural fluid chemistry is consistent with an exudate with a white cell count of 731 and elevated LDH and protein. Noted since the catheter insertion, the patient has produced approximately 350 cc in the Pleur-evac. No evidence of any air leak. Repeat chest x-ray from today showed left basilar consolidation without any sizable pneumothorax. Attempted to instill alteplase today through the pigtail catheter. This failed. It is possible that the tube is kinked at this point in time. Recommend obtaining a follow-up CAT scan of the chest without contrast. Meanwhile, the patient remains in atrial fibrillation. Rate is controlled. He is off the Cardizem drip and is currently on oral Cardizem 90 mg p.o. 3 times daily. He is also on metoprolol 100 mg p.o. daily. Is on anticoagulation with Xarelto. He remains on IV antibiotics and he remains on IV Rocephin. White cell count from today is at 17.3 with a hemoglobin of 12.7 and a platelet count of 344. Objective - Vital Signs Vital signs: Vital Signs Temp 98.8 F 04/13/24 08:23 Pulse 128 H 04/13/24 09:25 Resp 20 04/13/24 08:23 BP 126/93 04/13/24 08:23 Pulse Ox 94 L 04/13/24 08:23 FiO2 Intake & Output 04/12/24 04/13/24 04/13/24 18:59 06:59 18:59 Intake Total 360 Output Total 1305 850 500 Balance -1305 -850 -140 Weight 135.9 kg Intake: Oral 360 Output: Chest Tube Drainage 180 100 Pleural Catheter Left 180 100 Posterior Chest Urine 1125 750 500 Other: Voiding Method Urinal Urinal # Voids 1 2 - Exam General Appearance the patient is calm and comfortable no acute distress. The patient is currently on room air oxygen. Head exam was generally normal. There was no scleral icterus or corneal arcus. Mucous membranes were moist. Neck was supple and without jugular venous distension, thyromegaly, or carotid bruits. Carotids were easily palpable bilaterally. There was no adenopathy. Lung sounds are diminished in the left lung base along with dullness to percussion. Heart sounds are irregular consistent with atrial fibrillation. Positive S1-S2, no significant murmurs appreciated. Abdominal exam revealed normal bowel sounds. The abdomen was soft, non-tender, and without masses, organomegaly, or appreciable enlargement of the abdominal aorta. Examination of the extremities revealed easily palpable radial, femoral and pedal pulses. There was no cyanosis, clubbing or edema. Examination of the skin revealed no evidence of significant rashes, suspicious appearing nevi or other concerning lesions. Neurologically, the patient is awake and alert and the patient does not have any focal neurological deficit. Cranial nerves are essentially intact. - Labs CBC & Chem 7: 04/13/24 07:50 04/12/24 07:28 Labs: Abnormal Lab Results - Last 24 Hours (Table) 04/12/24 04/12/24 04/12/24 Range/Units 07:28 11:30 11:53 WBC (3.8-10.6) k/uL RBC (4.30-5.90) m/uL Hgb (13.0-17.5) gm/dL Hct (39.0-53.0) % Neutrophils # (1.3-7.7) k/uL POC Glucose (mg/dL) 115 H (70-110) mg/dL Hemoglobin A1c 7.1 H (<=6.0) % Fluid Appearance Hazy A (Clear) 04/12/24 04/12/24 04/13/24 Range/Units 16:41 20:26 07:50 WBC 17.3 H (3.8-10.6) k/uL RBC 4.25 L (4.30-5.90) m/uL Hgb 12.7 L (13.0-17.5) gm/dL Hct 38.5 L (39.0-53.0) % Neutrophils # 14.6 H (1.3-7.7) k/uL POC Glucose (mg/dL) 159 H 131 H (70-110) mg/dL Hemoglobin A1c (<=6.0) % Fluid Appearance (Clear) Microbiology - Last 24 Hours (Table) 04/10/24 14:27 Blood Culture - Preliminary Blood Assessment and Plan Plan: Parapneumonic loculated left-sided pleural effusion, status post pigtail catheter insertion with evacuation approximately 300 cc of pleural fluid. This is an exudative fluid and the culture still pending. Attempted to infuse alteplase and this failed. Rule out kinking of the tube. Pleuritic left-sided chest wall pain likely secondary to pneumonia and the patient was treated on outpatient basis with Zithromax Shortness of breath secondary to above Acute hypoxic respiratory failure, currently on room air oxygen Chronic atrial fibrillation with rapid ventricular response, rate is controlled and the patient is currently on a combination of metoprolol and Cardizem and anticoagulation with Xarelto. Hypertension Hyperlipidemia Diabetes mellitus Plan Continue current antibiotic coverage, pending cultures Obtain a follow-up CAT scan of the chest and decide if the tube needs to be replaced Daily chest x-ray Management of atrial fibrillation and the rate is controlled and the patient is back on anticoagulation Incentive spirometer Will continue to follow.
[2024-04-13] MEDS: ALTEPLASE 10 MG in SODIUM CHLORIDE 0.9% 50 ML IRRIGATION ONE (16:49)
[2024-04-13] MEDS: DORNASE ALFA 5 MG in SODIUM CHLORIDE 0.9% 50 ML IRRIGATION ONE (16:49)
[2024-04-13 17:15] LABS: Glucose,Whole Blood 114 mg/dL (70-110)
[2024-04-13] MEDS: DILTIAZEM ORAL 30 MG TAB PO SCH (17:19)
[2024-04-13 20:23] LABS: Glucose,Whole Blood 139 mg/dL (70-110)
[2024-04-14 06:11] LABS: Glucose,Whole Blood 109 mg/dL (70-110)
--- NOTE | 2024-04-14 08:31 | CT ---
EXAMINATION TYPE: CT chest wo con DATE OF EXAM: 04/14/2024 COMPARISON: 04/12/2024 HISTORY: Pleural fluid CT DLP: 798.5 mGycm. Automated Exposure Control for Dose Reduction was Utilized. TECHNIQUE: CT scan of the thorax is performed without IV contrast. FINDINGS: LUNGS: There is an area of consolidation in the left lung with central calcifications likely related to granulomas. There is a left-sided small to moderate pleural effusion. A drainage catheter is noted in position. Right lung is clear. Small amount air within the pleural collection likely related to the chest tube catheter. MEDIASTINUM: Heart is enlarged with a small pericardial effusion. Assessment for adenopathy limited d ue to lack of contrast. Calcified lymph nodes suggestive of granulomatous disease. Aorta of normal ca liber with mild atherosclerotic changes. OTHER: There are low attenuation correlate for hepatic steatosis there. A hepatic granuloma. Stable i ndeterminate left adrenal nodule. Hypertrophic and degenerative changes of the spine is small hiatal hernia. IMPRESSION: 1. Small to moderate left pleural effusion. Possibly loculated. Chest tube remains in position. 2. Consolidation involving the left lung likely in the basis of compressive atelectasis from the pleu ral fluid. Follow-up recommendations for incidental pulmonary nodules are per [employer] [place] or [employer] [place]. [facility], , 04/14/2024 8:29 AM
[2024-04-14] MEDS: DORNASE ALFA 5 MG in SODIUM CHLORIDE 0.9% 50 ML IRRIGATION ONE (10:32)
[2024-04-14] MEDS: ALTEPLASE 10 MG in SODIUM CHLORIDE 0.9% 50 ML IRRIGATION ONE (10:33)
[2024-04-14 11:24] LABS: Glucose,Whole Blood 141 mg/dL (70-110)
--- NOTE | 2024-04-14 14:42 | P.PN ---
Subjective Progress Note Date: 04/14/24 This is a 58-year-old gentleman admitted with persistent atrial fibrillation with RVR, maintained on Cardizem drip. CTA reporting moderate size loculated left-sided pleural fluid collection with associated compressive atelectasis, nonspecific 1.7 cm left adrenal mass-benign etiology favored based on size. Maintained on azithromycin, ceftriaxone. Afebrile, WBC Improving, decreased to 15.4. Hemoglobin 11.7, MCV 90.3, platelets 280, electrolytes and renal function stable. T. bili 1, AST normalized, ALT decreased to 71, alk phos increased to 204. Maintaining O2 sats in the low 90s on 2 L nasal cannula. 04/12/2024 continues on ceftriaxone, azithromycin evaluated by pulmonary recommending pigtail catheter placement with probable thrombolytic therapy secondary to left sided loculated pleural effusion, complicated possibly secondary to post pneumonia. Maintaining O2 sats of 94% on room air. Denies shortness of breath. Reports "coughing spells with sweats". Afebrile, WBC increased to 18.7. maintained on Cardizem drip, telemetry atrial fibrillation with controlled ventricular rate. Bicarb 23, BUN 18, creatinine 0.94. Hemoglobin A1c 7.1. Blood sugars better controlled on Levemir and NovoLog sliding scale insulins. 04/13/2024 Telemetry atrial fibrillation, heart rates currently in the 120s, maintained on oral Cardizem, metoprolol, valsartan. Anticoagulated with Xarelto. continues on ceftriaxone Tmax 101.2, WBC decreased to 17.3. Status post pigtail catheter placement. Follow chest x-ray reporting left-sided consolidation and small pleural effusion, no sizable pneumothorax. Pulmonary attempted to instill alteplase via pigtail catheter, unsuccessfully. Chest CT ordered. reports mild shortness of breath, productive cough with yellow sputum. Objective - Vital Signs Vital signs: Vital Signs Temp 98.7 F 04/13/24 16:48 Pulse 109 H 04/13/24 16:48 Resp 20 04/13/24 16:48 BP 154/105 04/13/24 16:48 Pulse Ox 95 04/13/24 16:48 FiO2 Intake & Output 04/12/24 04/13/24 04/13/24 18:59 06:59 18:59 Intake Total 720 Output Total 1305 850 675 Balance -1305 -850 45 Weight 135.9 kg Intake: Oral 720 Output: Chest Tube Drainage 180 100 50 Pleural Catheter Left 180 100 50 Posterior Chest Urine 1125 750 625 Other: Voiding Method Urinal Urinal # Voids 1 2 - Exam PHYSICAL EXAM: VITAL SIGNS: [As above] GENERAL: Alert and oriented x 3, sitting up on stretcher, no acute distress. HEENT: Conjunctivae normal. eyes normal. NECK: Supple, no JVD. CARDIOVASCULAR: S1, S2,irregular rate and rhythm , tachycardic ,no murmur RESPIRATION: Unlabored, better air entry, breath sounds diminished left base. Left-sided chest tube with serous drainage. ABDOMEN: Soft, nontender . No guarding. no masses palpable. +BS LEGS: No edema. no swelling, no calf tenderness NERVOUS SYSTEM: Cranial N 2-12 grossly normal. No focal deficits. Strength and sensation grossly intact. Skin: Warm and dry, no rash. - Labs CBC & Chem 7: 04/13/24 07:50 04/12/24 07:28 Labs: Abnormal Lab Results - Last 24 Hours (Table) 04/12/24 04/12/24 04/13/24 Range/Units 11:30 20:26 07:50 WBC 17.3 H (3.8-10.6) k/uL RBC 4.25 L (4.30-5.90) m/uL Hgb 12.7 L (13.0-17.5) gm/dL Hct 38.5 L (39.0-53.0) % Neutrophils # 14.6 H (1.3-7.7) k/uL POC Glucose (mg/dL) 131 H (70-110) mg/dL Fluid Appearance Hazy A (Clear) 04/13/24 04/13/24 Range/Units 12:12 17:14 WBC (3.8-10.6) k/uL RBC (4.30-5.90) m/uL Hgb (13.0-17.5) gm/dL Hct (39.0-53.0) % Neutrophils # (1.3-7.7) k/uL POC Glucose (mg/dL) 117 H 114 H (70-110) mg/dL Fluid Appearance (Clear) Microbiology - Last 24 Hours (Table) 04/12/24 11:30 Gram Stain - Preliminary Pleural Fluid 04/10/24 14:27 Blood Culture - Preliminary Blood Assessment and Plan Assessment: Chronic atrial fibrillation with RVR on Cardizem drip Left-sided pleural effusion, loculated; per pulmonary likely complicated left- sided pleural effusion post pneumonia. Procalcitonin normal, 0.19. Status post pigtail catheter placement. Unsuccessful alteplase via pigtail attempted. Pleuritic left-sided chest wall pain secondary to the above. Shortness of breath secondary to the above with acute hypoxic respiratory failur e Elevated D-dimer, pulmonary embolism ruled out Leukocytosis secondary to the above Diabetes mellitus, hemoglobin A1c 7.1 Incidental finding of nonspecific 1.7 cm left adrenal mass-benign etiology fa vored based on size. Further evaluation with outpatient CT/MRI Hypertension, dyslipidemia Plan: Continue on current medication regimen ,monitoring and symptomatic treatment. Chest CT pending due to to inability to instill alteplase in pigtail catheter. Aggressive pulmonary toileting with incentive spirometer reinforced. antiarrhythmics as per cardiology. Continue IV antibiotics. The impression and plan of care has been dictated as directed. : I performed a history and examination of this patient, discussed the same with the dictator. I agree with the dictator's note ,documented as a scribe. Any additional findings or plans will be noted.
--- NOTE | 2024-04-14 14:48 | P.PN ---
Subjective Progress Note Date: 04/14/24 Reason for Consult (text): afib with rvr History of present illness: This is a 58-year-old male patient of Dr. Quesada with past medical history of persistent atrial fibrillation maintaining sinus rhythm on low-dose flecainide, hypertension, dyslipidemia, obesity, diabetes mellitus type 2. We have been asked to evaluate the patient for A-fib with RVR. Patient states that starting about 1 week ago he was not feeling good. He saw his PCP on and was given antibiotics and nebulizer in the office and he was sent home on inhaler and antibiotics. On Thursday he was still not feeling very good and was almost completed the course of antibiotics. He decided to come into the hospital for further evaluation. He denies any chest pain, pressure or tightness. He denies dizziness. No palpitations. He does complain of cough and a little wheezing and a little sputum production that started out is ramirez and bloody and now is yellow. He states he has had occasional fever. He is a non-smoker. He has not had any caffeine intake for the past week but usually drinks a 20 ounce coffee daily. He has rare alcohol intake. Blood pressure 130/62, heart rate 101-221, pulse ox 91% on 2 L nasal cannula. Patient is status post 2 L of IV fluid and started on antibiotics and Cardizem drip is currently at 10 mg/h. Patient is seen today in the emergency center waiting for bed on the cardiac stepdown unit. EKG: Atrial fibrillation at 155 bpm Chest x-ray: Retrocardiac infiltrate. CTA of the chest is suboptimal study without acute pulmonary embolism. Moderate size loculated left-sided pleural fluid collection with associated compressive atelectasis. Consider thoracentesis. Nonspecific 1.7 cm left adrenal mass. Laboratory studies: WBC 18.2, hemoglobin 9.7, D-dimer 3.86. Sodium 133, potassium 4.1, creatinine 0.99, BUN 19. Troponin negative x 1. proBNP 103. Home cardiac medications: Atorvastatin 10 mg daily, flecainide 50 mg twice justin ly, Toprol XL 100 mg daily, Xarelto 20 mg daily, valsartan 320 mg daily 04/12 Patient is seen today in follow-up on the cardiac stepdown unit. He remains in atrial fibrillation running between 100 and 120s. He has been on a Cardizem drip. Patient is status post thoracentesis. Breathing status is improved. Blood pressure 125/78, heart rate 105, pulse ox 97% on room air. Repeat blood work reveals WBC 18.7, hemoglobin 12.1.. And 0.94. ALT 81, alkaline phosphatase 233. Echocardiogram reveals EF of 55 to 60%, poorly visualized intracardiac valves, technically difficult study for interpretation. 04/13 Patient heart rate has been fluctuating up to 160 per patient's nurse. Patient complains of cough now with yellow sputum production. He has had a temperature max of 101.2 most likely triggering the tachycardia. He remains in atrial fibrillation. He states his breathing is better today. Chest tube remains in place. Blood pressure 112/77, heart rate 128, pulse ox 97% on room air. Repeat blood work reveals WBC 17.3, hemoglobin 12.7. Repeat chest x-ray reveals left- sided consolidation and small pleural effusion. No sizable pneumothorax. 04/14 Patient underwent CAT scan of the chest which reveals small to moderate left pleural effusion. Possibly loculated. Chest tube remains in position. Consolidation involving the left lung likely in the basis of compressive atelectasis from the pleural effusion. Blood pressure 104/52, heart rate 108, pulse ox 90% on room air. Patient is status post antiplatelets and Pulmozyme. In general, patient is feeling much better. He still has a cough but does not have much sputum production. He remains in atrial fibrillation controlled rate. Physical examination: Gen: This is a 58-year-old male appears to be in no acute distress. VS: reviewed HEENT: Head is atraumatic, normocephalic. Pupils equal, round. Sclerae is anicteric. NECK: Supple. No JVD. LUNGS: Breath sounds significantly diminished and expiratory wheeze. No interc ostal retractions. HEART: Irregular rate and rhythm. No murmur. ABDOMEN: Soft No tenderness. EXTREMITIES: No pedal edema. No calf tenderness. NEUROLOGICAL: Patient is awake, alert and oriented x3. Assessment: Persistent atrial fibrillation with RVR, now rate controlled History of persistent atrial fibrillation previously maintaining sinus rhythm on low-dose flecainide Pneumonia Parapneumonic left-sided pleural effusion Hypertension Dyslipidemia Diabetes mellitus type 2 Plan: Continue current cardiac medications: Atorvastatin, Toprol XL 100 mg daily, Xarelto 20 mg daily, valsartan 160 mg daily Continue Cardizem 90 mg 3 times daily Continue to hold flecainide Consult with pulmonary medicine appreciated Further recommendations to follow based upon clinical course Nurse practitioner note has been reviewed, I agree with documented findings and plan of care. Patient was seen and examined. Objective - Vital Signs Vital signs: Vital Signs Temp 99 F 04/14/24 11:44 Pulse 91 04/14/24 11:44 Resp 20 04/14/24 11:44 BP 104/52 04/14/24 11:44 Pulse Ox 90 L 04/14/24 11:44 FiO2 Intake & Output 04/13/24 04/14/24 04/14/24 18:59 06:59 18:59 Intake Total 1370 118 180 Output Total 675 1920 575 Balance 194 -8855 -863 Weight 135.4 kg Intake: Intake, IV Titration 290 Amount Sodium Chloride 0.9% 1, 240 000 ml @ 20 mls/hr IV . Q24H [facility] Rx#:[id number] cefTRIAXone 2 gm In 50 Sodium Chloride 0.9% 50 ml @ 100 mls/hr IVPB Q24HR [facility] Rx#:[id number] Oral 1080 118 180 Output: Chest Tube Drainage 50 20 350 Pleural Catheter Left 50 20 350 Posterior Chest Urine 625 1900 225 Other: Voiding Method Urinal - Labs CBC & Chem 7: 04/13/24 07:50 04/12/24 07:28 Labs: Abnormal Lab Results - Last 24 Hours (Table) 04/13/24 04/13/24 04/14/24 Range/Units 17:14 20:22 11:22 POC Glucose (mg/dL) 114 H 139 H 141 H (70-110) mg/dL Microbiology - Last 24 Hours (Table) 04/10/24 14:27 Blood Culture - Preliminary Blood 04/12/24 11:30 Gram Stain - Preliminary Pleural Fluid Body Fluid Culture - Preliminary
--- NOTE | 2024-04-14 15:39 | P.PN ---
Subjective Progress Note Date: 04/14/24 This is a 58-year-old gentleman admitted with persistent atrial fibrillation with RVR, maintained on Cardizem drip. CTA reporting moderate size loculated left-sided pleural fluid collection with associated compressive atelectasis, nonspecific 1.7 cm left adrenal mass-benign etiology favored based on size. Maintained on azithromycin, ceftriaxone. Afebrile, WBC Improving, decreased to 15.4. Hemoglobin 11.7, MCV 90.3, platelets 280, electrolytes and renal function stable. T. bili 1, AST normalized, ALT decreased to 71, alk phos increased to 204. Maintaining O2 sats in the low 90s on 2 L nasal cannula. 04/12/2024 continues on ceftriaxone, azithromycin evaluated by pulmonary recommending pigtail catheter placement with probable thrombolytic therapy secondary to left sided loculated pleural effusion, complicated possibly secondary to post pneumonia. Maintaining O2 sats of 94% on room air. Denies shortness of breath. Reports "coughing spells with sweats". Afebrile, WBC increased to 18.7. maintained on Cardizem drip, telemetry atrial fibrillation with controlled ventricular rate. Bicarb 23, BUN 18, creatinine 0.94. Hemoglobin A1c 7.1. Blood sugars better controlled on Levemir and NovoLog sliding scale insulins. 04/13/2024 Telemetry atrial fibrillation, heart rates currently in the 120s, maintained on oral Cardizem, metoprolol, valsartan. Anticoagulated with Xarelto. continues on ceftriaxone Tmax 101.2, WBC decreased to 17.3. Status post pigtail catheter placement. Follow chest x-ray reporting left-sided consolidation and small pleural effusion, no sizable pneumothorax. Pulmonary attempted to instill alteplase via pigtail catheter, unsuccessfully. Chest CT ordered. reports mild shortness of breath, productive cough with yellow sputum. 04/14/2024 reports he feels better today with cough less productive. telemetry atrial fibrillation heart rates better controlled, low 100s. Tmax 99.7. Maintaining O2 sats in the low 90s on room air .chest CT reports small to moderate left pleural effusion, possibly loculated, chest tube remains in posit ion, consolidation involving left lung likely on the basis of compressive atelectasis from the pleural fluid. Objective - Vital Signs Vital signs: Vital Signs Temp 99 F 04/14/24 11:44 Pulse 104 H 04/14/24 13:35 Resp 20 04/14/24 11:44 BP 104/52 04/14/24 11:44 Pulse Ox 90 L 04/14/24 11:44 FiO2 Intake & Output 04/13/24 04/14/24 04/14/24 18:59 06:59 18:59 Intake Total 1370 118 360 Output Total 675 1920 575 Balance 695 -1802 -215 Weight 135.4 kg Intake: Intake, IV Titration 290 Amount Sodium Chloride 0.9% 1, 240 000 ml @ 20 mls/hr IV . Q24H [facility] Rx#:[id number] cefTRIAXone 2 gm In 50 Sodium Chloride 0.9% 50 ml @ 100 mls/hr IVPB Q24HR [facility] Rx#:[id number] Oral 1080 118 360 Output: Chest Tube Drainage 50 20 350 Pleural Catheter Left 50 20 350 Posterior Chest Urine 625 1900 225 Other: Voiding Method Urinal - Exam PHYSICAL EXAM: VITAL SIGNS: [As above] GENERAL: Alert and oriented x 3, sitting up in bed, no acute distress. HEENT: Conjunctivae normal. eyes normal. NECK: Supple, no JVD. CARDIOVASCULAR: S1, S2,irregular rate and rhythm , tachycardic ,no murmur RESPIRATION: Unlabored, better air entry, breath sounds diminished left base. Left-sided chest tube present. ABDOMEN: Soft, nontender . No guarding. no masses palpable. +BS LEGS: No edema. no swelling, no calf tenderness NERVOUS SYSTEM: Cranial N 2-12 grossly normal. No focal deficits. Strength and sensation grossly intact. Skin: Warm and dry, no rash. - Labs CBC & Chem 7: 04/13/24 07:50 04/12/24 07:28 Labs: Abnormal Lab Results - Last 24 Hours (Table) 04/13/24 04/13/24 04/14/24 Range/Units 17:14 20:22 11:22 POC Glucose (mg/dL) 114 H 139 H 141 H (70-110) mg/dL Microbiology - Last 24 Hours (Table) 04/10/24 14:27 Blood Culture - Preliminary Blood 04/12/24 11:30 Gram Stain - Preliminary Pleural Fluid Body Fluid Culture - Preliminary Assessment and Plan Assessment: Chronic atrial fibrillation with RVR status post Cardizem drip Parapneumonic loculated left-sided pleural effusion, status post pigtail catheter placement, exudative, culture pending. Pleuritic left-sided chest wall pain secondary to the above, improving. Shortness of breath secondary to the above with acute hypoxic respiratory failure, improved Elevated D-dimer, pulmonary embolism ruled out Leukocytosis secondary to the above Diabetes mellitus, hemoglobin A1c 7.1 Incidental finding of nonspecific 1.7 cm left adrenal mass-benign etiology favored based on size. Further evaluation with outpatient CT/MRI Hypertension, dyslipidemia Plan: Continue on current medication regimen ,monitoring and symptomatic treatment. alteplase instillation pending.maintain aggressive pulmonary toileting with incentive spirometer reinforced. antiarrhythmics as per cardiology. Continue IV antibiotics. The impression and plan of care has been dictated as directed. : I performed a history and examination of this patient, discussed the same with the dictator. I agree with the dictator's note ,documented as a scribe. Any additional findings or plans will be noted.
[2024-04-14 16:24] LABS: Glucose,Whole Blood 142 mg/dL (70-110)
--- NOTE | 2024-04-14 19:13 | P.PN ---
Subjective Progress Note Date: 04/14/24 This is a 58-year-old male patient who was hospitalized for left-sided chest pain. The patient has been experiencing pain, pleuritic in nature along the left lateral chest area and he has contacted his primary care physician and pneumonia was suspected and the patient was given a course of Zithromax on outpatient basis. His pain is somewhat subsided. He continues to have shortness of breath and ongoing pain along the left chest. No fever or chills. No significant cough sputum production or hemoptysis. He is currently on 2 L of oxygen by nasal cannula. The patient is also known to have chronic atrial fibrillation and at time of admission the patient was in A-fib RVR and the patient was started on a Cardizem drip. Hypertension hyperlipidemia diabetes mellitus type 2 has comorbid conditions. The patient is admitted on long-term anticoagulation. He has been maintained on Xarelto on outpatient basis. I saw the patient in the emergency department. He was room air oxygen. Reviewed the CAT scan of the chest and the patient has already developed a loculated left- sided pleural effusion which is moderate in size along with compressive atelectasis in the left lung base. There was also a nonspecific 1.7 cm left adrenal lesion, likely benign based on size. The white cell count is at 18.2 at time of admission with a hemoglobin 12.6 and a platelet count of 288. INR is 1.4. BUN is 20 with a creatinine of 1 and a sodium levels at 135. LFTs were mildly elevated with an AST of 61, ALT of 84, alkaline phosphatase of 177, troponins are negative, proBNP level is 103. The patient is currently on a combination of Rocephin and Zithromax. Also on a Cardizem drip for rate control. He also takes metoprolol 100 mg p.o. daily. He is on normal saline at rate of 20 cc an hour. Home medications have been resumed. No previous bouts of pneumonias. He is a non-smoker. 04/12/2024, the patient is being seen for a follow-up. The patient is doing well. The patient is stable. Denies having any specific complaints. Remains on room air oxygen. The patient underwent an ultrasound-guided pigtail catheter insertion today. Immediately, there was 100 cc of fluid removed and the fluid was sent for analysis. The patient remains on Rocephin and Zithromax. The white count of 18.7 with a hemoglobin 12.1. Electrolytes are all within normal limits. Blood culture is still negative. No other new complaints otherwise for now. On 04/13/2024, the patient is status post pigtail catheter insertion. Pleural fluid chemistry is consistent with an exudate with a white cell count of 731 and elevated LDH and protein. Noted since the catheter insertion, the patient has produced approximately 350 cc in the Pleur-evac. No evidence of any air leak. Repeat chest x-ray from today showed left basilar consolidation without any sizable pneumothorax. Attempted to instill alteplase today through the pigtail catheter. This failed. It is possible that the tube is kinked at this point in time. Recommend obtaining a follow-up CAT scan of the chest without contrast. Meanwhile, the patient remains in atrial fibrillation. Rate is controlled. He is off the Cardizem drip and is currently on oral Cardizem 90 mg p.o. 3 times daily. He is also on metoprolol 100 mg p.o. daily. Is on anticoagulation with Xarelto. He remains on IV antibiotics and he remains on IV Rocephin. White cell count from today is at 17.3 with a hemoglobin of 12.7 and a platelet count of 344. 04/14/2024, the patient remains stable on room air oxygen. A follow-up CAT scan of the chest was obtained today and the patient was found to have a small to moderate-sized left-sided pleural effusion with some ongoing loculation. The pigtail catheter was in a good location. Based on that, I attempted to flush again the catheter and I was able to flush it with saline. Based on that, alteplase was administered into the left hemithorax. Following that, the patient has produced an additional 400 cc of pleural fluid from the left pleural space. Clinically, he is doing well. No specific complaints. As mentioned, this was a complicated parapneumonic left-sided pleural effusion. White cell count is 17.3 with hemoglobin 4.7 and platelet count of 344. The cultures from the pleural fluid are still negative. Blood cultures also negative. The patient remains on IV Rocephin. No other significant events overnight. Remains on Levemir insulin 20 units daily and NovoLog as needed. Remains atrial fibrillation. Anticoagulation is with Xarelto. Metoprolol and milligrams p.o. daily for rate control in combination with Cardizem 90 mg p.o. 3 times daily. Objective - Vital Signs Vital signs: Vital Signs Temp 98.4 F 04/14/24 07:50 Pulse 110 H 04/14/24 07:50 Resp 20 04/14/24 07:50 BP 129/82 04/14/24 07:50 Pulse Ox 93 L 04/14/24 07:50 FiO2 Intake & Output 04/13/24 04/14/24 04/14/24 18:59 06:59 18:59 Intake Total 1370 118 180 Output Total 675 1920 Balance 695 -1802 180 Weight 135.4 kg Intake: Intake, IV Titration 290 Amount Sodium Chloride 0.9% 1, 240 000 ml @ 20 mls/hr IV . Q24H [facility] Rx#:[id number] cefTRIAXone 2 gm In 50 Sodium Chloride 0.9% 50 ml @ 100 mls/hr IVPB Q24HR [facility] Rx#:[id number] Oral 1080 118 180 Output: Chest Tube Drainage 50 20 Pleural Catheter Left 50 20 Posterior Chest Urine 625 1900 Other: Voiding Method Urinal - Exam General Appearance the patient is calm and comfortable no acute distress. The patient is currently on room air oxygen. Head exam was generally normal. There was no scleral icterus or corneal arcus. Mucous membranes were moist. Neck was supple and without jugular venous distension, thyromegaly, or carotid bruits. Carotids were easily palpable bilaterally. There was no adenopathy. Lung sounds are diminished in the left lung base along with dullness to percussion. Heart sounds are irregular consistent with atrial fibrillation. Positive S1-S2, no significant murmurs appreciated. Abdominal exam revealed normal bowel sounds. The abdomen was soft, non-tender, and without masses, organomegaly, or appreciable enlargement of the abdominal aorta. Examination of the extremities revealed easily palpable radial, femoral and pedal pulses. There was no cyanosis, clubbing or edema. Examination of the skin revealed no evidence of significant rashes, suspicious appearing nevi or other concerning lesions. Neurologically, the patient is awake and alert and the patient does not have any focal neurological deficit. Cranial nerves are essentially intact. - Labs CBC & Chem 7: 04/13/24 07:50 04/12/24 07:28 Labs: Abnormal Lab Results - Last 24 Hours (Table) 04/13/24 04/13/24 04/13/24 Range/Units 12:12 17:14 20:22 POC Glucose (mg/dL) 117 H 114 H 139 H (70-110) mg/dL Microbiology - Last 24 Hours (Table) 04/10/24 14:27 Blood Culture - Preliminary Blood 04/12/24 11:30 Gram Stain - Preliminary Pleural Fluid Body Fluid Culture - Preliminary Assessment and Plan Plan: Parapneumonic loculated left-sided pleural effusion, status post pigtail catheter insertion with evacuation approximately 300 cc of pleural fluid. This is an exudative fluid and the culture still pending. Attempted to infuse alteplase and this failed. Follow-up CAT scan of the chest showed adequate positioning of the pigtail catheter. I was able to flush the catheter today and alteplase x 1 was administered. Subsequently, there was improved drainage from the left hemithorax. Pleuritic left-sided chest wall pain likely secondary to pneumonia and the p atient was treated on outpatient basis with Zithromax, currently on IV Rocephin Shortness of breath secondary to above Acute hypoxic respiratory failure, currently on room air oxygen Chronic atrial fibrillation with rapid ventricular response, rate is controlled and the patient is currently on a combination of metoprolol and Cardizem and anticoagulation with Xarelto. Hypertension Hyperlipidemia Diabetes mellitus Plan Continue current antibiotic coverage, pending cultures CAT scan of the chest was noted Daily chest x-ray Moderate output from the pigtail catheter and the patient is post alteplase administration x 1 Management of atrial fibrillation and the rate is controlled and the patient is back on anticoagulation Incentive spirometer Will continue to follow.
[2024-04-14 20:16] LABS: Glucose,Whole Blood 155 mg/dL (70-110)
[2024-04-15 06:10] LABS: Glucose,Whole Blood 105 mg/dL (70-110)
[2024-04-15 09:16] VITALS: BMI 36.1
[2024-04-15 09:35] LABS: Basophils # (A) 0.1 k/uL (0-0.2); Basophils % (A) 0 %; Eosinophils # (A) 0.2 k/uL (0-0.7); Eosinophils % (A) 1 %; HCT 36.5 % (39.0-53.0); HGB 11.8 gm/dL (13.0-17.5); Lymphocytes # (A) 1.3 k/uL (1.0-4.8); Lymphocytes % (A) 8 %; MCH 29.5 pg (25.0-35.0); MCHC 32.4 g/dL (31.0-37.0); Monocytes % (A) 6 %; Neutrophils # (A) 13.3 k/uL (1.3-7.7); Neutrophils % (A) 83 %; Platelet Count 355 k/uL (150-450); RBC 4.01 m/uL (4.30-5.90); RDW 13.8 % (11.5-15.5)
--- NOTE | 2024-04-15 09:55 | XR ---
EXAMINATION TYPE: XR chest 1V portable DATE OF EXAM: 04/14/2024 COMPARISON: 04/13/2024 HISTORY: Pleural effusion TECHNIQUE: Single frontal view of the chest is obtained. FINDINGS: Small left pleural effusion with left-sided consolidation. The lung is clear. Heart size s table. Osseous structures are unchanged. Degenerative changes IMPRESSION: Stable left-sided consolidation and small pleural effusion. [facility], , 04/15/2024 7:46 AM
[2024-04-15 10:20] LABS: African American GFR (CKD) >90 (>60 ml/min/1.73 sqM); Anion Gap 7 mmol/L; Blood Urea Nitrogen 15 mg/dL (9-20); Calcium 8.4 mg/dL (8.4-10.2); Carbon Dioxide 24 mmol/L (22-30); Chloride 103 mmol/L (98-107); Glucose 159 mg/dL (74-99); Non-African American GFR(CKD) >90 (>60 ml/min/1.73 sqM); Potassium 4.2 mmol/L (3.5-5.1); Sodium 134 mmol/L (137-145)
[2024-04-15 11:42] LABS: Glucose,Whole Blood 113 mg/dL (70-110)
[2024-04-15] MEDS: DORNASE ALFA 5 MG in SODIUM CHLORIDE 0.9% 50 ML IRRIGATION ONE (12:09)
[2024-04-15] MEDS: ALTEPLASE 10 MG in SODIUM CHLORIDE 0.9% 50 ML IRRIGATION ONE (12:10)
--- NOTE | 2024-04-15 12:11 | P.PN ---
Subjective Progress Note Date: 04/15/24 Reason for Consult (text): afib with rvr History of present illness: This is a 58-year-old male patient of Dr. Quesada with past medical history of persistent atrial fibrillation maintaining sinus rhythm on low-dose flecainide, hypertension, dyslipidemia, obesity, diabetes mellitus type 2. We have been asked to evaluate the patient for A-fib with RVR. Patient states that starting about 1 week ago he was not feeling good. He saw his PCP on and was given antibiotics and nebulizer in the office and he was sent home on inhaler and antibiotics. On Thursday he was still not feeling very good and was almost completed the course of antibiotics. He decided to come into the hospital for further evaluation. He denies any chest pain, pressure or tightness. He denies dizziness. No palpitations. He does complain of cough and a little wheezing and a little sputum production that started out is ramirez and bloody and now is yellow. He states he has had occasional fever. He is a non-smoker. He has not had any caffeine intake for the past week but usually drinks a 20 ounce coffee daily. He has rare alcohol intake. Blood pressure 130/62, heart rate 101-221, pulse ox 91% on 2 L nasal cannula. Patient is status post 2 L of IV fluid and started on antibiotics and Cardizem drip is currently at 10 mg/h. Patient is seen today in the emergency center waiting for bed on the cardiac stepdown unit. EKG: Atrial fibrillation at 155 bpm Chest x-ray: Retrocardiac infiltrate. CTA of the chest is suboptimal study without acute pulmonary embolism. Moderate size loculated left-sided pleural fluid collection with associated compressive atelectasis. Consider thoracentesis. Nonspecific 1.7 cm left adrenal mass. Laboratory studies: WBC 18.2, hemoglobin 9.7, D-dimer 3.86. Sodium 133, potassium 4.1, creatinine 0.99, BUN 19. Troponin negative x 1. proBNP 103. Home cardiac medications: Atorvastatin 10 mg daily, flecainide 50 mg twice justin ly, Toprol XL 100 mg daily, Xarelto 20 mg daily, valsartan 320 mg daily 04/12 Patient is seen today in follow-up on the cardiac stepdown unit. He remains in atrial fibrillation running between 100 and 120s. He has been on a Cardizem drip. Patient is status post thoracentesis. Breathing status is improved. Blood pressure 125/78, heart rate 105, pulse ox 97% on room air. Repeat blood work reveals WBC 18.7, hemoglobin 12.1.. And 0.94. ALT 81, alkaline phosphatase 233. Echocardiogram reveals EF of 55 to 60%, poorly visualized intracardiac valves, technically difficult study for interpretation. 04/13 Patient heart rate has been fluctuating up to 160 per patient's nurse. Patient complains of cough now with yellow sputum production. He has had a temperature max of 101.2 most likely triggering the tachycardia. He remains in atrial fibrillation. He states his breathing is better today. Chest tube remains in place. Blood pressure 112/77, heart rate 128, pulse ox 97% on room air. Repeat blood work reveals WBC 17.3, hemoglobin 12.7. Repeat chest x-ray reveals left- sided consolidation and small pleural effusion. No sizable pneumothorax. 04/14 Patient underwent CAT scan of the chest which reveals small to moderate left pleural effusion. Possibly loculated. Chest tube remains in position. Consolidation involving the left lung likely in the basis of compressive atelectasis from the pleural effusion. Blood pressure 104/52, heart rate 108, pulse ox 90% on room air. Patient is status post antiplatelets and Pulmozyme. In general, patient is feeling much better. He still has a cough but does not have much sputum production. He remains in atrial fibrillation controlled rate. 04/15 Patient is heart rate was controlled overnight but this morning at around change of shift he was in the 140s and 150s and after he received his oral medications, he is down to the 120s. He denies feeling any shortness of breath or palpitations no dizziness. He states after he had his procedure done yesterday he had quite a bit more coughing. He states that Dr. Romeo and is planning to do a repeat alteplase treatment. Blood pressure 100/63, pulse ox 93% on room air. Repeat blood work reveals hemoglobin 11.8, WBC 16. Creatinine 0.92. Physical examination: Gen: This is a 58-year-old male appears to be in no acute distress. VS: reviewed HEENT: Head is atraumatic, normocephalic. Pupils equal, round. Sclerae is anicteric. NECK: Supple. No JVD. LUNGS: Breath sounds significantly diminished left side. No intercostal retractions. HEART: Irregular rate and rhythm. No murmur. ABDOMEN: Soft No tenderness. EXTREMITIES: No pedal edema. No calf tenderness. NEUROLOGICAL: Patient is awake, alert and oriented x3. Assessment: Persistent atrial fibrillation with RVR, intermittent episodes of RVR History of persistent atrial fibrillation previously maintaining sinus rhythm on low-dose flecainide Pneumonia Parapneumonic left-sided pleural effusion Hypertension Dyslipidemia Diabetes mellitus type 2 Plan: Continue current cardiac medications: Atorvastatin, Xarelto 20 mg daily, Cardizem 90 mg 3 times daily Discontinue valsartan Continue Toprol XL 100 mg in the morning and and 50 mg at bedtime Continue to hold flecainide Consult with pulmonary medicine appreciated Further recommendations to follow based upon clinical course Nurse practitioner note has been reviewed, I agree with documented findings and plan of care. Patient was seen and examined. Objective - Vital Signs Vital signs: Vital Signs Temp 98.1 F 04/15/24 08:00 Pulse 112 H 04/15/24 08:36 Resp 20 04/15/24 08:00 BP 100/63 04/15/24 08:00 Pulse Ox 93 L 04/15/24 08:29 FiO2 Intake & Output 04/14/24 04/15/24 04/15/24 18:59 06:59 18:59 Intake Total 810 680 128 Output Total 865 990 10 Balance -55 -310 118 Weight 134.9 kg 134.9 kg Intake: IV 10 Invasive Line 3 10 Intake, IV Titration 270 140 Amount Sodium Chloride 0.9% 1, 220 140 000 ml @ 20 mls/hr IV . Q24H [facility] Rx#:[id number] cefTRIAXone 2 gm In 50 Sodium Chloride 0.9% 50 ml @ 100 mls/hr IVPB Q24HR [facility] Rx#:[id number] Oral 540 540 118 Output: Chest Tube Drainage 490 40 10 Pleural Catheter Left 490 40 10 Posterior Chest Urine 375 950 Other: Voiding Method Urinal Urinal # Voids 1 - Labs CBC & Chem 7: 04/15/24 09:06 04/15/24 09:06 Labs: Abnormal Lab Results - Last 24 Hours (Table) 04/14/24 04/14/24 04/14/24 Range/Units 11:22 16:22 20:14 WBC (3.8-10.6) k/uL RBC (4.30-5.90) m/uL Hgb (13.0-17.5) gm/dL Hct (39.0-53.0) % Neutrophils # (1.3-7.7) k/uL Sodium (137-145) mmol/L Glucose (74-99) mg/dL POC Glucose (mg/dL) 141 H 142 H 155 H (70-110) mg/dL 04/15/24 04/15/24 Range/Units 09:06 09:06 WBC 16.0 H (3.8-10.6) k/uL RBC 4.01 L (4.30-5.90) m/uL Hgb 11.8 L (13.0-17.5) gm/dL Hct 36.5 L (39.0-53.0) % Neutrophils # 13.3 H (1.3-7.7) k/uL Sodium 134 L (137-145) mmol/L Glucose 159 H (74-99) mg/dL POC Glucose (mg/dL) (70-110) mg/dL Microbiology - Last 24 Hours (Table) 04/12/24 11:30 Anaerobic Culture - Preliminary Pleural Fluid 04/12/24 11:30 Gram Stain - Preliminary Pleural Fluid Body Fluid Culture - Preliminary
--- NOTE | 2024-04-15 12:43 | P.PN ---
Subjective Progress Note Date: 04/15/24 This is a 58-year-old gentleman admitted with persistent atrial fibrillation with RVR, maintained on Cardizem drip. CTA reporting moderate size loculated left-sided pleural fluid collection with associated compressive atelectasis, nonspecific 1.7 cm left adrenal mass-benign etiology favored based on size. Maintained on azithromycin, ceftriaxone. Afebrile, WBC Improving, decreased to 15.4. Hemoglobin 11.7, MCV 90.3, platelets 280, electrolytes and renal function stable. T. bili 1, AST normalized, ALT decreased to 71, alk phos increased to 204. Maintaining O2 sats in the low 90s on 2 L nasal cannula. 04/12/2024 continues on ceftriaxone, azithromycin evaluated by pulmonary recommending pigtail catheter placement with probable thrombolytic therapy secondary to left sided loculated pleural effusion, complicated possibly secondary to post pneumonia. Maintaining O2 sats of 94% on room air. Denies shortness of breath. Reports "coughing spells with sweats". Afebrile, WBC increased to 18.7. maintained on Cardizem drip, telemetry atrial fibrillation with controlled ventricular rate. Bicarb 23, BUN 18, creatinine 0.94. Hemoglobin A1c 7.1. Blood sugars better controlled on Levemir and NovoLog sliding scale insulins. 04/13/2024 Telemetry atrial fibrillation, heart rates currently in the 120s, maintained on oral Cardizem, metoprolol, valsartan. Anticoagulated with Xarelto. continues on ceftriaxone Tmax 101.2, WBC decreased to 17.3. Status post pigtail catheter placement. Follow chest x-ray reporting left-sided consolidation and small pleural effusion, no sizable pneumothorax. Pulmonary attempted to instill alteplase via pigtail catheter, unsuccessfully. Chest CT ordered. reports mild shortness of breath, productive cough with yellow sputum. 04/14/2024 reports he feels better today with cough less productive. telemetry atrial fibrillation heart rates better controlled, low 100s. Tmax 99.7. Maintaining O2 sats in the low 90s on room air .chest CT reports small to moderate left pleural effusion, possibly loculated, chest tube remains in posit ion, consolidation involving left lung likely on the basis of compressive atelectasis from the pleural fluid. 04/15/2024 remains in atrial fibrillation, had been controlled throughout the night this morning prior to a.m. med administration, heart rates up to 150s. Denies chest pain, palpitations or shortness of breath. Alteplase instilled yesterday. Reports improved breathing, less pressure. Positive cough. Maintaining O2 sats of 93% on room air. Tmax 100.1, chest x-ray pending. Labs pending. Blood sugars controlled. Objective - Vital Signs Vital signs: Vital Signs Temp 98.1 F 04/15/24 08:00 Pulse 104 H 04/15/24 12:09 Resp 20 04/15/24 12:09 BP 121/83 04/15/24 12:09 Pulse Ox 94 L 04/15/24 12:09 FiO2 Intake & Output 04/14/24 04/15/24 04/15/24 18:59 06:59 18:59 Intake Total 810 680 128 Output Total 865 990 10 Balance -55 -310 118 Weight 134.9 kg 134.9 kg Intake: IV 10 Invasive Line 3 10 Intake, IV Titration 270 140 Amount Sodium Chloride 0.9% 1, 220 140 000 ml @ 20 mls/hr IV . Q24H [facility] Rx#:[id number] cefTRIAXone 2 gm In 50 Sodium Chloride 0.9% 50 ml @ 100 mls/hr IVPB Q24HR [facility] Rx#:[id number] Oral 540 540 118 Output: Chest Tube Drainage 490 40 10 Pleural Catheter Left 490 40 10 Posterior Chest Urine 375 950 Other: Voiding Method Urinal Urinal # Voids 1 - Exam PHYSICAL EXAM: VITAL SIGNS: [As above] GENERAL: Alert and oriented x 3, sitting up in bed, no acute distress. HEENT: Conjunctivae normal. eyes normal. NECK: Supple, no JVD. CARDIOVASCULAR: S1, S2,irregular rate and rhythm , tachycardic ,no murmur RESPIRATION: Unlabored, improved air entry, less diminished left base. Left- sided chest tube present. ABDOMEN: Soft, nontender . No guarding. no masses palpable. +BS LEGS: No edema. no swelling, no calf tenderness NERVOUS SYSTEM: Cranial N 2-12 grossly normal. No focal deficits. Strength and sensation grossly intact. Skin: Warm and dry, no rash. - Labs CBC & Chem 7: 04/15/24 09:06 04/15/24 09:06 Labs: Abnormal Lab Results - Last 24 Hours (Table) 04/14/24 04/14/24 04/15/24 Range/Units 16:22 20:14 09:06 WBC 16.0 H (3.8-10.6) k/uL RBC 4.01 L (4.30-5.90) m/uL Hgb 11.8 L (13.0-17.5) gm/dL Hct 36.5 L (39.0-53.0) % Neutrophils # 13.3 H (1.3-7.7) k/uL Sodium (137-145) mmol/L Glucose (74-99) mg/dL POC Glucose (mg/dL) 142 H 155 H (70-110) mg/dL 04/15/24 04/15/24 Range/Units 09:06 11:40 WBC (3.8-10.6) k/uL RBC (4.30-5.90) m/uL Hgb (13.0-17.5) gm/dL Hct (39.0-53.0) % Neutrophils # (1.3-7.7) k/uL Sodium 134 L (137-145) mmol/L Glucose 159 H (74-99) mg/dL POC Glucose (mg/dL) 113 H (70-110) mg/dL Microbiology - Last 24 Hours (Table) 04/12/24 11:30 Anaerobic Culture - Preliminary Pleural Fluid 04/12/24 11:30 Gram Stain - Preliminary Pleural Fluid Body Fluid Culture - Preliminary Assessment and Plan Assessment: Chronic atrial fibrillation with RVR status post Cardizem drip Parapneumonic loculated left-sided pleural effusion, status post pigtail catheter placement, exudative, culture pending. Status post alteplase instillation x 1, repeat pending. Pleuritic left-sided chest wall pain secondary to the above, improving. Shortness of breath secondary to the above with acute hypoxic respiratory failur e, improved Elevated D-dimer, pulmonary embolism ruled out Leukocytosis secondary to the above Diabetes mellitus, hemoglobin A1c 7.1 Incidental finding of nonspecific 1.7 cm left adrenal mass-benign etiology favored based on size. Further evaluation with outpatient CT/MRI Hypertension, dyslipidemia Plan: Continue on current medication regimen ,monitoring and symptomatic treatment. Labs/chest x-ray pending.repeat alteplase instillation pending.maintain IV antibiotics .aggressive pulmonary toileting with incentive spirometer reinforced. antiarrhythmics as per cardiology. The impression and plan of care has been dictated as directed. : I performed a history and examination of this patient, discussed the same with the dictator. I agree with the dictator's note ,documented as a scribe. Any additional findings or plans will be noted.
--- NOTE | 2024-04-15 14:18 | P.PN ---
Subjective Progress Note Date: 04/15/24 This is a 58-year-old male patient who was hospitalized for left-sided chest pain. The patient has been experiencing pain, pleuritic in nature along the left lateral chest area and he has contacted his primary care physician and pneumonia was suspected and the patient was given a course of Zithromax on outpatient basis. His pain is somewhat subsided. He continues to have shortness of breath and ongoing pain along the left chest. No fever or chills. No significant cough sputum production or hemoptysis. He is currently on 2 L of oxygen by nasal cannula. The patient is also known to have chronic atrial fibrillation and at time of admission the patient was in A-fib RVR and the patient was started on a Cardizem drip. Hypertension hyperlipidemia diabetes mellitus type 2 has comorbid conditions. The patient is admitted on long-term anticoagulation. He has been maintained on Xarelto on outpatient basis. I saw the patient in the emergency department. He was room air oxygen. Reviewed the CAT scan of the chest and the patient has already developed a loculated left- sided pleural effusion which is moderate in size along with compressive atelectasis in the left lung base. There was also a nonspecific 1.7 cm left adrenal lesion, likely benign based on size. The white cell count is at 18.2 at time of admission with a hemoglobin 12.6 and a platelet count of 288. INR is 1.4. BUN is 20 with a creatinine of 1 and a sodium levels at 135. LFTs were mildly elevated with an AST of 61, ALT of 84, alkaline phosphatase of 177, troponins are negative, proBNP level is 103. The patient is currently on a combination of Rocephin and Zithromax. Also on a Cardizem drip for rate control. He also takes metoprolol 100 mg p.o. daily. He is on normal saline at rate of 20 cc an hour. Home medications have been resumed. No previous bouts of pneumonias. He is a non-smoker. 04/12/2024, the patient is being seen for a follow-up. The patient is doing well. The patient is stable. Denies having any specific complaints. Remains on room air oxygen. The patient underwent an ultrasound-guided pigtail catheter insertion today. Immediately, there was 100 cc of fluid removed and the fluid was sent for analysis. The patient remains on Rocephin and Zithromax. The white count of 18.7 with a hemoglobin 12.1. Electrolytes are all within normal limits. Blood culture is still negative. No other new complaints otherwise for now. On 04/13/2024, the patient is status post pigtail catheter insertion. Pleural fluid chemistry is consistent with an exudate with a white cell count of 731 and elevated LDH and protein. Noted since the catheter insertion, the patient has produced approximately 350 cc in the Pleur-evac. No evidence of any air leak. Repeat chest x-ray from today showed left basilar consolidation without any sizable pneumothorax. Attempted to instill alteplase today through the pigtail catheter. This failed. It is possible that the tube is kinked at this point in time. Recommend obtaining a follow-up CAT scan of the chest without contrast. Meanwhile, the patient remains in atrial fibrillation. Rate is controlled. He is off the Cardizem drip and is currently on oral Cardizem 90 mg p.o. 3 times daily. He is also on metoprolol 100 mg p.o. daily. Is on anticoagulation with Xarelto. He remains on IV antibiotics and he remains on IV Rocephin. White cell count from today is at 17.3 with a hemoglobin of 12.7 and a platelet count of 344. 04/14/2024, the patient remains stable on room air oxygen. A follow-up CAT scan of the chest was obtained today and the patient was found to have a small to moderate-sized left-sided pleural effusion with some ongoing loculation. The pigtail catheter was in a good location. Based on that, I attempted to flush again the catheter and I was able to flush it with saline. Based on that, alteplase was administered into the left hemithorax. Following that, the patient has produced an additional 400 cc of pleural fluid from the left pleural space. Clinically, he is doing well. No specific complaints. As mentioned, this was a complicated parapneumonic left-sided pleural effusion. White cell count is 17.3 with hemoglobin 4.7 and platelet count of 344. The cultures from the pleural fluid are still negative. Blood cultures also negative. The patient remains on IV Rocephin. No other significant events overnight. Remains on Levemir insulin 20 units daily and NovoLog as needed. Remains atrial fibrillation. Anticoagulation is with Xarelto. Metoprolol and milligrams p.o. daily for rate control in combination with Cardizem 90 mg p.o. 3 times daily. 04/15/2024, the patient is doing well. The patient underwent alteplase treatment through the pigtail catheter yesterday and there was a total of 700 cc of output since administration. Repeat chest x-ray was done today and shows a small left- sided pleural effusion. There is ongoing consolidation. The left hemidiaphragm is visualized on today's chest x-ray. No pleurisy. No hemoptysis. Cultures from the fluid is negative. The white cell count is 16 with a hemoglobin of 11.8. Electrolytes are all within normal limits. The patient continues to be in atrial fibrillation. The plan is to do a second dose of alteplase administration into the left pleural space today. Objective - Vital Signs Vital signs: Vital Signs Temp 98.1 F 04/15/24 08:00 Pulse 112 H 04/15/24 08:36 Resp 20 04/15/24 08:00 BP 100/63 04/15/24 08:00 Pulse Ox 93 L 04/15/24 08:29 FiO2 Intake & Output 04/14/24 04/15/24 04/15/24 18:59 06:59 18:59 Intake Total 810 680 128 Output Total 865 990 10 Balance -55 -310 118 Weight 134.9 kg 134.9 kg Intake: IV 10 Invasive Line 3 10 Intake, IV Titration 270 140 Amount Sodium Chloride 0.9% 1, 220 140 000 ml @ 20 mls/hr IV . Q24H [facility] Rx#:[id number] cefTRIAXone 2 gm In 50 Sodium Chloride 0.9% 50 ml @ 100 mls/hr IVPB Q24HR [facility] Rx#:[id number] Oral 540 540 118 Output: Chest Tube Drainage 490 40 10 Pleural Catheter Left 490 40 10 Posterior Chest Urine 375 950 Other: Voiding Method Urinal Urinal # Voids 1 - Exam General Appearance the patient is calm and comfortable no acute distress. The patient is currently on room air oxygen. Head exam was generally normal. There was no scleral icterus or corneal arcus. Mucous membranes were moist. Neck was supple and without jugular venous distension, thyromegaly, or carotid bruits. Carotids were easily palpable bilaterally. There was no adenopathy. Lung sounds are diminished in the left lung base along with dullness to percussion. Heart sounds are irregular consistent with atrial fibrillation. Positive S1-S2, no significant murmurs appreciated. Abdominal exam revealed normal bowel sounds. The abdomen was soft, non-tender, and without masses, organomegaly, or appreciable enlargement of the abdominal aorta. Examination of the extremities revealed easily palpable radial, femoral and pedal pulses. There was no cyanosis, clubbing or edema. Examination of the skin revealed no evidence of significant rashes, suspicious appearing nevi or other concerning lesions. Neurologically, the patient is awake and alert and the patient does not have any focal neurological deficit. Cranial nerves are essentially intact. - Labs CBC & Chem 7: 04/15/24 09:04/15/24 09:06 Labs: Abnormal Lab Results - Last 24 Hours (Table) 04/14/24 04/14/24 04/14/24 Range/Units 11:22 16:22 20:14 WBC (3.8-10.6) k/uL RBC (4.30-5.90) m/uL Hgb (13.0-17.5) gm/dL Hct (39.0-53.0) % Neutrophils # (1.3-7.7) k/uL Sodium (137-145) mmol/L Glucose (74-99) mg/dL POC Glucose (mg/dL) 141 H 142 H 155 H (70-110) mg/dL 04/15/24 04/15/24 Range/Units 09:06 09:06 WBC 16.0 H (3.8-10.6) k/uL RBC 4.01 L (4.30-5.90) m/uL Hgb 11.8 L (13.0-17.5) gm/dL Hct 36.5 L (39.0-53.0) % Neutrophils # 13.3 H (1.3-7.7) k/uL Sodium 134 L (137-145) mmol/L Glucose 159 H (74-99) mg/dL POC Glucose (mg/dL) (70-110) mg/dL Microbiology - Last 24 Hours (Table) 04/12/24 11:30 Anaerobic Culture - Preliminary Pleural Fluid 04/12/24 11:30 Gram Stain - Preliminary Pleural Fluid Body Fluid Culture - Preliminary Assessment and Plan Plan: Parapneumonic loculated left-sided pleural effusion, status post pigtail catheter insertion with evacuation approximately 300 cc of pleural fluid. This is an exudative fluid and the culture is still negative. The patient status post alteplase administration yesterday with evacuation of another 700 cc of pleural fluid. A second alteplase administration will be done today. Chest x- ray findings are somewhat improved compared to yesterday. Will continue daily chest x-ray monitoring. Pleuritic left-sided chest wall pain likely secondary to pneumonia and the patient was treated on outpatient basis with Zithromax, currently on IV Rocephin, pleuritic chest pain essentially recovered. Shortness of breath secondary to above Acute hypoxic respiratory failure, currently on room air oxygen Chronic atrial fibrillation with rapid ventricular response, rate is controlled and the patient is currently on a combination of metoprolol and Cardizem and anticoagulation with Xarelto. Hypertension Hyperlipidemia Diabetes mellitus Plan Continue current antibiotic coverage, cultures are negative. Will perform a second alteplase administration through the pigtail catheter today. Output from the pigtail catheter is noted. Chest x-ray was noted with some limited improvement in the aeration of the left lung base. Incentive spirometer Will continue to follow
[2024-04-15 16:39] LABS: Glucose,Whole Blood 144 mg/dL (70-110)
[2024-04-15] MEDS: METOPROLOL SUCCINATE (ER) 50 MG TAB.ER.24H PO SCH (18:59)
[2024-04-15 19:50] LABS: Glucose,Whole Blood 147 mg/dL (70-110)
[2024-04-16 06:04] LABS: Glucose,Whole Blood 119 mg/dL (70-110)
--- NOTE | 2024-04-16 06:39 | XR ---
EXAMINATION TYPE: XR chest 1V DATE OF EXAM: 04/16/2024 COMPARISON: 04/13/2024 HISTORY: Pneumonia TECHNIQUE: Single frontal view of the chest is obtained. FINDINGS: Interval decrease in the left opacification involving the left lung base likely a combination of pleu ral effusion and atelectasis or pneumonia. The right lung is clear. There is no pulmonary vascular congestion. There is no pneumothorax. IMPRESSION: Decreasing cardiopulmonary process in the left lung base as described above. [facility], Workstation: [id number] 04/16/2024 6:37 AM
[2024-04-16 07:28] LABS: Basophils # (A) 0.1 k/uL (0-0.2); Basophils % (A) 1 %; Eosinophils # (A) 0.2 k/uL (0-0.7); Eosinophils % (A) 1 %; HCT 36.5 % (39.0-53.0); HGB 11.8 gm/dL (13.0-17.5); Lymphocytes # (A) 1.7 k/uL (1.0-4.8); Lymphocytes % (A) 10 %; MCH 29.5 pg (25.0-35.0); MCHC 32.3 g/dL (31.0-37.0); MCV 91.3 fL (80.0-100.0); Mean Platelet Volume 8.8; Monocytes # (A) 1.2 k/uL (0-1.0); Monocytes % (A) 7 %; Neutrophils # (A) 14.3 k/uL (1.3-7.7); Neutrophils % (A) 80 %; Platelet Count 403 k/uL (150-450); RDW 13.8 % (11.5-15.5); WBC 17.8 k/uL (3.8-10.6)
[2024-04-16 07:51] LABS: African American GFR (CKD) >90 (>60 ml/min/1.73 sqM); Anion Gap 6 mmol/L; Blood Urea Nitrogen 20 mg/dL (9-20); Calcium 8.2 mg/dL (8.4-10.2); Carbon Dioxide 24 mmol/L (22-30); Chloride 103 mmol/L (98-107); Glucose 112 mg/dL (74-99); Non-African American GFR(CKD) >90 (>60 ml/min/1.73 sqM); Potassium 4.6 mmol/L (3.5-5.1); Sodium 133 mmol/L (137-145)
[2024-04-16 12:01] LABS: Glucose,Whole Blood 115 mg/dL (70-110)
--- NOTE | 2024-04-16 12:07 | P.PN ---
Subjective Progress Note Date: 04/16/24 This is a 58-year-old male patient of Dr. Quesada with past medical history of persistent atrial fibrillation maintaining sinus rhythm on low-dose flecainide, hypertension, dyslipidemia, obesity, diabetes mellitus type 2. We have been asked to evaluate the patient for A-fib with RVR. Patient states that starting about 1 week ago he was not feeling good. He saw his PCP on and was given antibiotics and nebulizer in the office and he was sent home on inhaler and antibiotics. On Thursday he was still not feeling very good and was almost completed the course of antibiotics. He decided to come into the hospital for further evaluation. He denies any chest pain, pressure or tightness. He denies dizziness. No palpitations. He does complain of cough and a little wheezing and a little sputum production that started out is ramirez and bloody and now is yellow. He states he has had occasional fever. He is a non-smoker. He has not had any caffeine intake for the past week but usually drinks a 20 ounce coffee daily. He has rare alcohol intake. Blood pressure 130/62, heart rate 101-221, pulse ox 91% on 2 L nasal cannula. Patient is status post 2 L of IV fluid and started on antibiotics and Cardizem drip is currently at 10 mg/h. Patient is seen today in the emergency center waiting for bed on the cardiac stepdown unit. EKG: Atrial fibrillation at 155 bpm Chest x-ray: Retrocardiac infiltrate. CTA of the chest is suboptimal study without acute pulmonary embolism. Moderate size loculated left-sided pleural fluid collection with associated compressive atelectasis. Consider thoracentesis. Nonspecific 1.7 cm left adrenal mass. Echocardiogram reveals EF of 55 to 60%, poorly visualized intracardiac valves, technically difficult study for interpretation. 04/16/2024 Chest x-ray this morning showed interval decrease in the left open opacification involving the left lung base likely combination of pleural effusion and atelectasis or pneumonia. Patient complained of episode of chills last night and was febrile at that time with a temperature of 102.7 F. Heart rate remains poorly controlled. He remains on diltiazem 90 mg p.o. 3 times daily and metoprolol succinate 100 mg every morning and 50 mg every afternoon. Pulmonology remains on the case and he underwent a second dose of alteplase administration into the left pleural space yesterday. Pigtail catheter remains in place. Overall patient continues to feel short of breath with minimal activity. Denies any chest discomfort or edema. Objective - Vital Signs Vital signs: Vital Signs Temp 98.2 F 04/16/24 08:00 Pulse 147 H 04/16/24 08:00 Resp 18 04/16/24 08:00 BP 131/79 04/16/24 08:00 Pulse Ox 94 L 04/16/24 08:00 FiO2 Intake & Output 04/15/24 04/16/24 04/16/24 18:59 06:59 18:59 Intake Total 138 20 118 Output Total 995 1140 410 Balance -857 -1120 -292 Weight 134.9 kg 133 kg Intake: IV 20 20 Invasive Line 3 20 20 Oral 118 118 Output: Chest Tube Drainage 370 390 10 Pleural Catheter Left 370 390 10 Posterior Chest Urine 625 750 400 Other: Voiding Method Urinal Urinal Urinal - Exam Gen: This is a 58-year-old male appears to be in no acute distress. VS: reviewed HEENT: Head is atraumatic, normocephalic. Pupils equal, round. Sclerae is anicteric. NECK: Supple. No JVD. LUNGS: Breath sounds significantly diminished left side. No intercostal retractions. HEART: Irregular rate and rhythm. No murmur. ABDOMEN: Soft No tenderness. EXTREMITIES: No pedal edema. No calf tenderness. NEUROLOGICAL: Patient is awake, alert and oriented x3. - Labs CBC & Chem 7: 04/16/24 06:55 04/16/24 06:55 Labs: Abnormal Lab Results - Last 24 Hours (Table) 04/15/24 04/15/24 04/16/24 Range/Units 16:36 19:49 06:02 WBC (3.8-10.6) k/uL RBC (4.30-5.90) m/uL Hgb (13.0-17.5) gm/dL Hct (39.0-53.0) % Neutrophils # (1.3-7.7) k/uL Monocytes # (0-1.0) k/uL Sodium (137-145) mmol/L Glucose (74-99) mg/dL POC Glucose (mg/dL) 144 H 147 H 119 H (70-110) mg/dL Calcium (8.4-10.2) mg/dL 04/16/24 04/16/24 Range/Units 06:55 06:55 WBC 17.8 H (3.8-10.6) k/uL RBC 4.00 L (4.30-5.90) m/uL Hgb 11.8 L (13.0-17.5) gm/dL Hct 36.5 L (39.0-53.0) % Neutrophils # 14.3 H (1.3-7.7) k/uL Monocytes # 1.2 H (0-1.0) k/uL Sodium 133 L (137-145) mmol/L Glucose 112 H (74-99) mg/dL POC Glucose (mg/dL) (70-110) mg/dL Calcium 8.2 L (8.4-10.2) mg/dL Microbiology - Last 24 Hours (Table) 04/10/24 14:27 Blood Culture - Final Blood 04/12/24 11:30 Gram Stain - Preliminary Pleural Fluid Body Fluid Culture - Preliminary Assessment and Plan Assessment: Persistent atrial fibrillation with RVR History of persistent atrial fibrillation previously maintaining sinus rhythm on low-dose flecainide Pneumonia Parapneumonic left-sided pleural effusion Hypertension Dyslipidemia Diabetes mellitus type 2 Plan: From cardiology's perspective heart rates remain poorly controlled. We will continue Cardizem 90 mg p.o. 3 times daily and Toprol-XL 100 mg every morning and 50 mg every afternoon. Continue to hold flecainide. We will add amiodarone 400 mg p.o. twice daily for heart rate control. We will continue to follow the patient and provide further recommendations accordingly. RESEARCH BIOSTATISTICIAN note has been reviewed, I agree with a documented findings and plan of care. Patient was seen and examined.
[2024-04-16] MEDS: AMIODARONE 200 MG TAB PO SCH (12:14)
[2024-04-16] MEDS ORDERED: LIDOCAINE 4% PATCH TOPICAL SCH (13:00)
--- NOTE | 2024-04-16 14:32 | P.PN ---
Subjective Progress Note Date: 04/16/24 This is a 58-year-old male patient who was hospitalized for left-sided chest pain. The patient has been experiencing pain, pleuritic in nature along the left lateral chest area and he has contacted his primary care physician and pneumonia was suspected and the patient was given a course of Zithromax on outpatient basis. His pain is somewhat subsided. He continues to have shortness of breath and ongoing pain along the left chest. No fever or chills. No significant cough sputum production or hemoptysis. He is currently on 2 L of oxygen by nasal cannula. The patient is also known to have chronic atrial fibrillation and at time of admission the patient was in A-fib RVR and the patient was started on a Cardizem drip. Hypertension hyperlipidemia diabetes mellitus type 2 has comorbid conditions. The patient is admitted on long-term anticoagulation. He has been maintained on Xarelto on outpatient basis. I saw the patient in the emergency department. He was room air oxygen. Reviewed the CAT scan of the chest and the patient has already developed a loculated left- sided pleural effusion which is moderate in size along with compressive atelectasis in the left lung base. There was also a nonspecific 1.7 cm left adrenal lesion, likely benign based on size. The white cell count is at 18.2 at time of admission with a hemoglobin 12.6 and a platelet count of 288. INR is 1.4. BUN is 20 with a creatinine of 1 and a sodium levels at 135. LFTs were mildly elevated with an AST of 61, ALT of 84, alkaline phosphatase of 177, troponins are negative, proBNP level is 103. The patient is currently on a combination of Rocephin and Zithromax. Also on a Cardizem drip for rate control. He also takes metoprolol 100 mg p.o. daily. He is on normal saline at rate of 20 cc an hour. Home medications have been resumed. No previous bouts of pneumonias. He is a non-smoker. 04/12/2024, the patient is being seen for a follow-up. The patient is doing well. The patient is stable. Denies having any specific complaints. Remains on room air oxygen. The patient underwent an ultrasound-guided pigtail catheter insertion today. Immediately, there was 100 cc of fluid removed and the fluid was sent for analysis. The patient remains on Rocephin and Zithromax. The white count of 18.7 with a hemoglobin 12.1. Electrolytes are all within normal limits. Blood culture is still negative. No other new complaints otherwise for now. On 04/13/2024, the patient is status post pigtail catheter insertion. Pleural fluid chemistry is consistent with an exudate with a white cell count of 731 and elevated LDH and protein. Noted since the catheter insertion, the patient has produced approximately 350 cc in the Pleur-evac. No evidence of any air leak. Repeat chest x-ray from today showed left basilar consolidation without any sizable pneumothorax. Attempted to instill alteplase today through the pigtail catheter. This failed. It is possible that the tube is kinked at this point in time. Recommend obtaining a follow-up CAT scan of the chest without contrast. Meanwhile, the patient remains in atrial fibrillation. Rate is controlled. He is off the Cardizem drip and is currently on oral Cardizem 90 mg p.o. 3 times daily. He is also on metoprolol 100 mg p.o. daily. Is on anticoagulation with Xarelto. He remains on IV antibiotics and he remains on IV Rocephin. White cell count from today is at 17.3 with a hemoglobin of 12.7 and a platelet count of 344. 04/14/2024, the patient remains stable on room air oxygen. A follow-up CAT scan of the chest was obtained today and the patient was found to have a small to moderate-sized left-sided pleural effusion with some ongoing loculation. The pigtail catheter was in a good location. Based on that, I attempted to flush again the catheter and I was able to flush it with saline. Based on that, alteplase was administered into the left hemithorax. Following that, the patient has produced an additional 400 cc of pleural fluid from the left pleural space. Clinically, he is doing well. No specific complaints. As mentioned, this was a complicated parapneumonic left-sided pleural effusion. White cell count is 17.3 with hemoglobin 4.7 and platelet count of 344. The cultures from the pleural fluid are still negative. Blood cultures also negative. The patient remains on IV Rocephin. No other significant events overnight. Remains on Levemir insulin 20 units daily and NovoLog as needed. Remains atrial fibrillation. Anticoagulation is with Xarelto. Metoprolol and milligrams p.o. daily for rate control in combination with Cardizem 90 mg p.o. 3 times daily. 04/15/2024, the patient is doing well. The patient underwent alteplase treatment through the pigtail catheter yesterday and there was a total of 700 cc of output since administration. Repeat chest x-ray was done today and shows a small left- sided pleural effusion. There is ongoing consolidation. The left hemidiaphragm is visualized on today's chest x-ray. No pleurisy. No hemoptysis. Cultures from the fluid is negative. The white cell count is 16 with a hemoglobin of 11.8. Electrolytes are all within normal limits. The patient continues to be in atrial fibrillation. The plan is to do a second dose of alteplase administration into the left pleural space today. On 04/16/2024, the patient is status post 2 alteplase treatments to the left pleural space and the patient has produced another 700 cc of pleural fluid over the past 24 hours following the second administration of alteplase. His chest x-ray continues to show some volume loss in the left lung base. I decided to proceed with a third treatment. He is doing well. Continues to have atrial fibrillation specially with mobility and activity where he becomes more tachycardic. No pleurisy. No hemoptysis. Cultures are negative. White cell count of 17, hemoglobin 11 and a platelet count of 403. BUN is 20 with a creatinine 0.9 and sodium levels at 133. The patient remains on IV Rocephin. No other significant events overnight. The patient remains on I anticoagulation with Xarelto. Objective - Vital Signs Vital signs: Vital Signs Temp 98.3 F 04/16/24 04:46 Pulse 105 H 04/16/24 07:54 Resp 18 04/16/24 04:46 BP 102/66 04/16/24 04:46 Pulse Ox 94 L 04/16/24 04:46 FiO2 Intake & Output 04/15/24 04/16/24 04/16/24 18:59 06:59 18:59 Intake Total 138 20 Output Total 995 1140 Balance -857 -1120 Weight 134.9 kg 133 kg Intake: IV 20 20 Invasive Line 3 20 20 Oral 118 Output: Chest Tube Drainage 370 390 Pleural Catheter Left 370 390 Posterior Chest Urine 625 750 Other: Voiding Method Urinal Urinal - Exam General Appearance the patient is calm and comfortable no acute distress. The patient is currently on room air oxygen. Head exam was generally normal. There was no scleral icterus or corneal arcus. Mucous membranes were moist. Neck was supple and without jugular venous distension, thyromegaly, or carotid bruits. Carotids were easily palpable bilaterally. There was no adenopathy. Lung sounds are diminished in the left lung base along with dullness to percussion. Heart sounds are irregular consistent with atrial fibrillation. Positive S1-S2, no significant murmurs appreciated. Abdominal exam revealed normal bowel sounds. The abdomen was soft, non-tender, and without masses, organomegaly, or appreciable enlargement of the abdominal aorta. Examination of the extremities revealed easily palpable radial, femoral and pedal pulses. There was no cyanosis, clubbing or edema. Examination of the skin revealed no evidence of significant rashes, suspicious appearing nevi or other concerning lesions. Neurologically, the patient is awake and alert and the patient does not have any focal neurological deficit. Cranial nerves are essentially intact. - Labs CBC & Chem 7: 04/16/24 06:55 04/16/24 06:55 Labs: Abnormal Lab Results - Last 24 Hours (Table) 04/15/24 04/15/24 04/15/24 Range/Units 09:06 09:06 11:40 WBC 16.0 H (3.8-10.6) k/uL RBC 4.01 L (4.30-5.90) m/uL Hgb 11.8 L (13.0-17.5) gm/dL Hct 36.5 L (39.0-53.0) % Neutrophils # 13.3 H (1.3-7.7) k/uL Monocytes # (0-1.0) k/uL Sodium 134 L (137-145) mmol/L Glucose 159 H (74-99) mg/dL POC Glucose (mg/dL) 113 H (70-110) mg/dL Calcium (8.4-10.2) mg/dL 04/15/24 04/15/24 04/16/24 Range/Units 16:36 19:49 06:02 WBC (3.8-10.6) k/uL RBC (4.30-5.90) m/uL Hgb (13.0-17.5) gm/dL Hct (39.0-53.0) % Neutrophils # (1.3-7.7) k/uL Monocytes # (0-1.0) k/uL Sodium (137-145) mmol/L Glucose (74-99) mg/dL POC Glucose (mg/dL) 144 H 147 H 119 H (70-110) mg/dL Calcium (8.4-10.2) mg/dL 04/16/24 04/16/24 Range/Units 06:55 06:55 WBC 17.8 H (3.8-10.6) k/uL RBC 4.00 L (4.30-5.90) m/uL Hgb 11.8 L (13.0-17.5) gm/dL Hct 36.5 L (39.0-53.0) % Neutrophils # 14.3 H (1.3-7.7) k/uL Monocytes # 1.2 H (0-1.0) k/uL Sodium 133 L (137-145) mmol/L Glucose 112 H (74-99) mg/dL POC Glucose (mg/dL) (70-110) mg/dL Calcium 8.2 L (8.4-10.2) mg/dL Microbiology - Last 24 Hours (Table) 04/10/24 14:27 Blood Culture - Final Blood 04/12/24 11:30 Gram Stain - Preliminary Pleural Fluid Body Fluid Culture - Preliminary Assessment and Plan Plan: Parapneumonic loculated left-sided pleural effusion, status post pigtail catheter insertion and alteplase treatment x 2 with good output and some improvement in volume status and left lung base. Clinically stable. Pleuritic left-sided chest wall pain likely secondary to pneumonia and the patient was treated on outpatient basis with Zithromax, currently on IV Rocephin, pleuritic chest pain essentially recovered. Shortness of breath secondary to above Acute hypoxic respiratory failure, currently on room air oxygen Chronic atrial fibrillation with rapid ventricular response, rate is controlled and the patient is currently on a combination of metoprolol and Cardizem and anticoagulation with Xarelto. Hypertension Hyperlipidemia Diabetes mellitus Plan Continue current antibiotic coverage, cultures are negative. Will perform a third alteplase administration through the pigtail catheter today. Output from the pigtail catheter is noted. Chest x-ray was noted with some limited improvement in the aeration of the left lung base. Obtain a noncontrast CAT scan of the chest in a.m. Incentive spirometer Will continue to follow
[2024-04-16] MEDS: DORNASE ALFA 5 MG in SODIUM CHLORIDE 0.9% 50 ML IRRIGATION ONE (15:40)
[2024-04-16] MEDS: ALTEPLASE 10 MG in SODIUM CHLORIDE 0.9% 50 ML IRRIGATION ONE (15:40)
--- NOTE | 2024-04-16 16:09 | P.PN ---
Subjective Progress Note Date: 04/16/24 58-year-old male patient who was hospitalized for left-sided chest pain. The patient has been experiencing pain, pleuritic in nature along the left lateral chest area and he has contacted his primary care physician and pneumonia was suspected and the patient was given a course of Zithromax on outpatient basis. His pain is somewhat subsided. He continues to have shortness of breath and ongoing pain along the left chest. No fever or chills. No significant cough sputum production or hemoptysis. He is currently on 2 L of oxygen by nasal cannula. The patient is also known to have chronic atrial fibrillation and at time of admission the patient was in A-fib RVR and the patient was started on a Cardizem drip. Hypertension hyperlipidemia diabetes mellitus type 2 has comorbid conditions. The patient is admitted on long-term anticoagulation. He has been maintained on Xarelto on outpatient basis. I saw the patient in the emergency department. He was room air oxygen. Reviewed the CAT scan of the chest and the patient has already developed a loculated left-sided pleural effusion which is moderate in size along with compressive atelectasis in the left lung base. There was also a nonspecific 1.7 cm left adrenal lesion, likely benign based on size. The white cell count is at 18.2 at time of admission with a hemoglobin 12.6 and a platelet count of 288. INR is 1.4. BUN is 20 with a cr eatinine of 1 and a sodium levels at 135. LFTs were mildly elevated with an AST of 61, ALT of 84, alkaline phosphatase of 177, troponins are negative, proBNP level is 103. The patient is currently on a combination of Rocephin and Zithromax. Also on a Cardizem drip for rate control. He also takes metoprolol 100 mg p.o. daily. He is on normal saline at rate of 20 cc an hour. Home medications have been resumed. No previous bouts of pneumonias. He is a non- smoker Objective - Vital Signs Vital signs: Vital Signs Temp 97.9 F 04/16/24 11:48 Pulse 109 H 04/16/24 14:00 Resp 18 04/16/24 14:00 BP 113/69 04/16/24 11:48 Pulse Ox 96 04/16/24 11:48 FiO2 Intake & Output 04/15/24 04/16/24 04/16/24 18:59 06:59 18:59 Intake Total 138 20 118 Output Total 995 1140 410 Balance -857 -1120 -292 Weight 134.9 kg 133 kg Intake: IV 20 20 Invasive Line 3 20 20 Oral 118 118 Output: Chest Tube Drainage 370 390 10 Pleural Catheter Left 370 390 10 Posterior Chest Urine 625 750 400 Other: Voiding Method Urinal Urinal Urinal - Exam General Appearance the patient is calm and comfortable no acute distress. The patient is currently on room air oxygen. Head exam was generally normal. There was no scleral icterus or corneal arcus. Mucous membranes were moist. Neck was supple and without jugular venous distension, thyromegaly, or carotid bruits. Carotids were easily palpable bilaterally. There was no adenopathy. Lung sounds are diminished in the left lung base along with dullness to percussion. Heart sounds are irregular consistent with atrial fibrillation. Positive S1-S2, no significant murmurs appreciated. Abdominal exam revealed normal bowel sounds. The abdomen was soft, non-tender, and without masses, organomegaly, or appreciable enlargement of the abdominal aorta. Examination of the extremities revealed easily palpable radial, femoral and pedal pulses. There was no cyanosis, clubbing or edema. Examination of the skin revealed no evidence of significant rashes, suspicious appearing nevi or other concerning lesions. Neurologically, the patient is awake and alert and the patient does not have any focal neurological deficit. Cranial nerves are essentially intact. - Labs CBC & Chem 7: 04/16/24 06:55 04/16/24 06:55 Labs: Abnormal Lab Results - Last 24 Hours (Table) 04/15/24 04/15/24 04/16/24 Range/Units 16:36 19:49 06:02 WBC (3.8-10.6) k/uL RBC (4.30-5.90) m/uL Hgb (13.0-17.5) gm/dL Hct (39.0-53.0) % Neutrophils # (1.3-7.7) k/uL Monocytes # (0-1.0) k/uL Sodium (137-145) mmol/L Glucose (74-99) mg/dL POC Glucose (mg/dL) 144 H 147 H 119 H (70-110) mg/dL Calcium (8.4-10.2) mg/dL 04/16/24 04/16/24 04/16/24 Range/Units 06:55 06:55 11:59 WBC 17.8 H (3.8-10.6) k/uL RBC 4.00 L (4.30-5.90) m/uL Hgb 11.8 L (13.0-17.5) gm/dL Hct 36.5 L (39.0-53.0) % Neutrophils # 14.3 H (1.3-7.7) k/uL Monocytes # 1.2 H (0-1.0) k/uL Sodium 133 L (137-145) mmol/L Glucose 112 H (74-99) mg/dL POC Glucose (mg/dL) 115 H (70-110) mg/dL Calcium 8.2 L (8.4-10.2) mg/dL Microbiology - Last 24 Hours (Table) 04/10/24 14:27 Blood Culture - Final Blood 04/12/24 11:30 Gram Stain - Preliminary Pleural Fluid Body Fluid Culture - Preliminary Assessment and Plan Assessment: 1. Parapneumonic loculated left-sided pleural effusion, status post pigtail catheter insertion and alteplase treatment x 2 with good output and some improvement in volume status and left lung base. Clinically stable. -- Pulmonary service on board; continue with current antibiotic therapy -- Repeat chest x-ray does reveal some improvement in aeration of left lung base 2. Pleuritic left-sided chest wall pain likely secondary to pneumonia; continue with current antibiotic therapy. 3. Acute hypoxic respiratory failure; resolved; currently on room air oxygen 4. Chronic atrial fibrillation with rapid ventricular response, rate is controlled and the patient is currently on a combination of amiodarone, metoprolol and Cardizem and anticoagulation with Xarelto. 5. Hypertension; Cardizem 90 mg p.o. 3 times daily, metoprolol 50 mg p.o. nightly 6. Hyperlipidemia; Zetia 10 mg p.o. nightly 7. Diabetes mellitus; patient is currently on Levemir 20 units subcu daily along with insulin sliding scale DVT prophylaxis; SCDs/systemic anticoagulation CODE STATUS; full code
[2024-04-16 16:17] LABS: Glucose,Whole Blood 129 mg/dL (70-110)
[2024-04-16 20:20] LABS: Glucose,Whole Blood 135 mg/dL (70-110)
[2024-04-17 06:03] LABS: Glucose,Whole Blood 132 mg/dL (70-110)
--- NOTE | 2024-04-17 07:07 | XR ---
EXAMINATION TYPE: XR chest 1V DATE OF EXAM: 04/17/2024 COMPARISON: 04/16/2024 HISTORY: Pneumonia TECHNIQUE: Single frontal view of the chest is obtained. FINDINGS: There has been interval placement of a pigtail catheter in the left pleural space. There i s a persistent large opacity obscuring the left hemidiaphragm and costophrenic angle likely combinati on of pleural fluid and lung consolidation secondary to pneumonia and/or atelectasis. Right lung remains clear. There is no pneumothorax. The pulmonary vasculature is not congested. IMPRESSION: 1. Interval placement of a pigtail drainage catheter in the left pleural space with no pneumothorax. 2. No change in the acute cardiopulmonary process in the left lung base as described above. [facility], Workstation: [id number] 04/17/2024 7:05 AM
[2024-04-17 08:36] LABS: Basophils # (A) 0.1 k/uL (0-0.2); Basophils % (A) 1 %; Eosinophils # (A) 0.2 k/uL (0-0.7); Eosinophils % (A) 2 %; HCT 37.5 % (39.0-53.0); HGB 12.2 gm/dL (13.0-17.5); Lymphocytes # (A) 1.5 k/uL (1.0-4.8); Lymphocytes % (A) 11 %; MCH 29.6 pg (25.0-35.0); MCHC 32.6 g/dL (31.0-37.0); MCV 90.8 fL (80.0-100.0); Mean Platelet Volume 8.9; Monocytes % (A) 7 %; Neutrophils # (A) 10.6 k/uL (1.3-7.7); Neutrophils % (A) 78 %; Platelet Count 503 k/uL (150-450); RBC 4.14 m/uL (4.30-5.90); RDW 13.8 % (11.5-15.5); WBC 13.6 k/uL (3.8-10.6)
[2024-04-17 08:48] LABS: African American GFR (CKD) >90 (>60 ml/min/1.73 sqM); Anion Gap 7 mmol/L; Blood Urea Nitrogen 19 mg/dL (9-20); Calcium 8.6 mg/dL (8.4-10.2); Carbon Dioxide 26 mmol/L (22-30); Chloride 102 mmol/L (98-107); Glucose 137 mg/dL (74-99); Non-African American GFR(CKD) 81 (>60 ml/min/1.73 sqM); Potassium 4.7 mmol/L (3.5-5.1); Sodium 135 mmol/L (137-145)
--- NOTE | 2024-04-17 09:24 | CT ---
EXAMINATION TYPE: CT chest wo con DATE OF EXAM: 04/17/2024 COMPARISON: 04/14/2024 HISTORY: pneumonia CT DLP: 730 mGycm. Automated Exposure Control for Dose Reduction was Utilized. TECHNIQUE: CT scan of the thorax is performed without IV contrast. FINDINGS: There are moderate to large left sided loculated pleural fluid collections. There is a pleural draina ge catheter and the left lower lobe pleural space which is resulted in decreased loculated lower lobe collections but the upper lobe collection is stable. There is persistent mild compressive atelectasi s in the left lower lobe but there is mildly improved aeration in the left lung base There are calcified granulomas in the right lung otherwise the right lung is clear. There is mild cardiomegaly and small pericardial effusion. There is no definite mediastinal, hilar or axillary adenopathy. Limited scanning of the abdomen reveals no gross abnormality. No focal osseous lesions are seen. IMPRESSION: Multiple loculated fluid collections in the left hemithorax. There is a drainage catheter in the lowe r loculated fluid collection which as resulted in a smaller fluid collection in better aeration in th e left lung base. The upper loculated fluid collection is unchanged. [facility], , 04/17/2024 9:21 AM
[2024-04-17] MEDS: methylPREDNISolone SOD SUCCI 125 MG/2 ML VIAL IV SCH (10:39)
[2024-04-17 11:29] LABS: Glucose,Whole Blood 114 mg/dL (70-110)
--- NOTE | 2024-04-17 12:04 | P.PN ---
Subjective Progress Note Date: 04/17/24 58-year-old male patient who was hospitalized for left-sided chest pain. The patient has been experiencing pain, pleuritic in nature along the left lateral chest area and he has contacted his primary care physician and pneumonia was suspected and the patient was given a course of Zithromax on outpatient basis. His pain is somewhat subsided. He continues to have shortness of breath and ongoing pain along the left chest. No fever or chills. No significant cough sputum production or hemoptysis. He is currently on 2 L of oxygen by nasal cannula. The patient is also known to have chronic atrial fibrillation and at time of admission the patient was in A-fib RVR and the patient was started on a Cardizem drip. Hypertension hyperlipidemia diabetes mellitus type 2 has comorbid conditions. The patient is admitted on long-term anticoagulation. He has been maintained on Xarelto on outpatient basis. I saw the patient in the emergency department. He was room air oxygen. Reviewed the CAT scan of the chest and the patient has already developed a loculated left-sided pleural effusion which is moderate in size along with compressive atelectasis in the left lung base. There was also a nonspecific 1.7 cm left adrenal lesion, likely benign based on size. The white cell count is at 18.2 at time of admission with a hemoglobin 12.6 and a platelet count of 288. INR is 1.4. BUN is 20 with a cr eatinine of 1 and a sodium levels at 135. LFTs were mildly elevated with an AST of 61, ALT of 84, alkaline phosphatase of 177, troponins are negative, proBNP level is 103. The patient is currently on a combination of Rocephin and Zithromax. Also on a Cardizem drip for rate control. He also takes metoprolol 100 mg p.o. daily. He is on normal saline at rate of 20 cc an hour. Home medications have been resumed. No previous bouts of pneumonias. He is a non- smoker 24-hour interval history 04/17/2024 Patient seen and evaluated and discussed with nursing staff; complains of extensive rash both anterior chest and back; patient placed on amiodarone yesterday and received 1 dose; amiodarone currently placed on hold Vital signs are reviewed and remained stable Lab review shows WBC 13.6, hemoglobin of 12.1 platelet count of 503, sodium 135, potassium 4.7, BUNs/creatinine of 19/1.01 and blood glucose of 137 --Patient will be placed on Benadryl 25 mg IV every 6 hours as needed; amiodarone placed on hold -Patient has Pleurx catheter in place for pleural effusion which seems to be loculated patient has; undergone 3 doses of alteplase; await further recommendations from pulmonary service -- Patient remains on Cardizem 90 mg 3 times daily and metoprolol 100 mg daily and 50 mg every afternoon for atrial fibrillation with RVR; amiodarone started yesterday and is currently held till further recommendations from cardiology given extensive rash Objective - Vital Signs Vital signs: Vital Signs Temp 98.9 F 04/16/24 19:58 Pulse 115 H 04/17/24 04:20 Resp 18 04/17/24 04:20 BP 123/83 04/17/24 04:20 Pulse Ox 93 L 04/17/24 04:20 FiO2 Intake & Output 04/16/24 04/17/24 04/17/24 18:59 06:59 18:59 Intake Total 894 Output Total 440 975 Balance 454 -975 Weight 132.4 kg Intake: Oral 894 Output: Chest Tube Drainage 40 150 Pleural Catheter Left 40 150 Posterior Chest Urine 400 825 Other: Voiding Method Urinal Urinal - Exam General Appearance the patient is calm and comfortable no acute distress. The patient is currently on room air oxygen. Head exam was generally normal. There was no scleral icterus or corneal arcus. Mucous membranes were moist. Neck was supple and without jugular venous distension, thyromegaly, or carotid bruits. Carotids were easily palpable bilaterally. There was no adenopathy. Lung sounds are diminished in the left lung base along with dullness to percussion. Heart sounds are irregular consistent with atrial fibrillation. Positive S1-S2, no significant murmurs appreciated. Abdominal exam revealed normal bowel sounds. The abdomen was soft, non-tender, and without masses, organomegaly, or appreciable enlargement of the abdominal aorta. Examination of the extremities revealed easily palpable radial, femoral and pedal pulses. There was no cyanosis, clubbing or edema. Examination of the skin revealed no evidence of significant rashes, suspicious appearing nevi or other concerning lesions. Neurologically, the patient is awake and alert and the patient does not have any focal neurological deficit. Cranial nerves are essentially intact. - Labs CBC & Chem 7: 04/17/24 08:07 04/17/24 08:07 Labs: Abnormal Lab Results - Last 24 Hours (Table) 04/16/24 04/16/24 04/16/24 Range/Units 11:59 16:15 20:19 POC Glucose (mg/dL) 115 H 129 H 135 H (70-110) mg/dL 04/17/24 Range/Units 06:00 POC Glucose (mg/dL) 132 H (70-110) mg/dL Microbiology - Last 24 Hours (Table) 04/12/24 11:30 Anaerobic Culture - Final Pleural Fluid 04/12/24 11:30 Gram Stain - Final Pleural Fluid Body Fluid Culture - Final Assessment and Plan Assessment: 1. Parapneumonic loculated left-sided pleural effusion, status post pigtail catheter insertion and alteplase treatment x 2 with good output and some improvement in volume status and left lung base. Clinically stable. -- Pulmonary service on board; continue with current antibiotic therapy -- Repeat chest x-ray does reveal some improvement in aeration of left lung base 2. Pleuritic left-sided chest wall pain likely secondary to pneumonia; continue with current antibiotic therapy. 3. Acute hypoxic respiratory failure; resolved; currently on room air oxygen 4. Chronic atrial fibrillation with rapid ventricular response, rate is controlled and the patient is currently on a combination of amiodarone, metoprolol and Cardizem and anticoagulation with Xarelto. 5. Hypertension; Cardizem 90 mg p.o. 3 times daily, metoprolol 50 mg p.o. nightly 6. Hyperlipidemia; Zetia 10 mg p.o. nightly 7. Diabetes mellitus; patient is currently on Levemir 20 units subcu daily along with insulin sliding scale DVT prophylaxis; SCDs/systemic anticoagulation CODE STATUS; full code
--- NOTE | 2024-04-17 12:04 | P.PN ---
Subjective Progress Note Date: 04/17/24 This is a 58-year-old male patient of Dr. Quesada with past medical history of persistent atrial fibrillation maintaining sinus rhythm on low-dose flecainide, hypertension, dyslipidemia, obesity, diabetes mellitus type 2. We have been asked to evaluate the patient for A-fib with RVR. Patient states that starting about 1 week ago he was not feeling good. He saw his PCP on and was given antibiotics and nebulizer in the office and he was sent home on inhaler and antibiotics. On Thursday he was still not feeling very good and was almost completed the course of antibiotics. He decided to come into the hospital for further evaluation. He denies any chest pain, pressure or tightness. He denies dizziness. No palpitations. He does complain of cough and a little wheezing and a little sputum production that started out is ramirez and bloody and now is yellow. He states he has had occasional fever. He is a non-smoker. He has not had any caffeine intake for the past week but usually drinks a 20 ounce coffee daily. He has rare alcohol intake. Blood pressure 130/62, heart rate 101-221, pulse ox 91% on 2 L nasal cannula. Patient is status post 2 L of IV fluid and started on antibiotics and Cardizem drip is currently at 10 mg/h. Patient is seen today in the emergency center waiting for bed on the cardiac stepdown unit. EKG: Atrial fibrillation at 155 bpm Chest x-ray: Retrocardiac infiltrate. CTA of the chest is suboptimal study without acute pulmonary embolism. Moderate size loculated left-sided pleural fluid collection with associated compressive atelectasis. Consider thoracentesis. Nonspecific 1.7 cm left adrenal mass. Echocardiogram reveals EF of 55 to 60%, poorly visualized intracardiac valves, technically difficult study for interpretation. 04/16/2024 Chest x-ray this morning showed interval decrease in the left open opacification involving the left lung base likely combination of pleural effusion and atelectasis or pneumonia. Patient complained of episode of chills last night and was febrile at that time with a temperature of 102.7 F. Heart rate remains poorly controlled. He remains on diltiazem 90 mg p.o. 3 times daily and metoprolol succinate 100 mg every morning and 50 mg every afternoon. Pulmonology remains on the case and he underwent a second dose of alteplase administration into the left pleural space yesterday. Pigtail catheter remains in place. Overall patient continues to feel short of breath with minimal activity. Denies any chest discomfort or edema. 04/17/2024 Patient was seen and examined sitting up in a chair. He is anticipating pigtail catheter to be pulled soon. He was initiated on amiodarone yesterday but developed a rash. Vital signs have been stable heart rate remains somewhat elevated. Objective - Vital Signs Vital signs: Vital Signs Temp 98.2 F 04/17/24 07:53 Pulse 95 04/17/24 11:42 Resp 18 04/17/24 11:42 BP 115/75 04/17/24 11:42 Pulse Ox 95 04/17/24 11:42 FiO2 Intake & Output 04/16/24 04/17/24 04/17/24 18:59 06:59 18:59 Intake Total 894 236 Output Total 440 975 30 Balance 454 -975 206 Weight 132.4 kg Intake: Oral 894 236 Output: Chest Tube Drainage 40 150 30 Pleural Catheter Left 40 150 30 Posterior Chest Urine 400 825 Other: Voiding Method Urinal Urinal Urinal - Exam Gen: This is a 58-year-old male appears to be in no acute distress. VS: reviewed HEENT: Head is atraumatic, normocephalic. Pupils equal, round. Sclerae is anicteric. NECK: Supple. No JVD. LUNGS: Breath sounds significantly diminished left side. No intercostal retractions. HEART: Irregular rate and rhythm. No murmur. ABDOMEN: Soft No tenderness. EXTREMITIES: No pedal edema. No calf tenderness. NEUROLOGICAL: Patient is awake, alert and oriented x3. Skin: Macular papular rash - Labs CBC & Chem 7: 04/17/24 08:07 04/17/24 08:07 Labs: Abnormal Lab Results - Last 24 Hours (Table) 04/16/24 04/16/24 04/17/24 Range/Units 16:15 20:19 06:00 WBC (3.8-10.6) k/uL RBC (4.30-5.90) m/uL Hgb (13.0-17.5) gm/dL Hct (39.0-53.0) % Plt Count (150-450) k/uL Neutrophils # (1.3-7.7) k/uL Sodium (137-145) mmol/L Glucose (74-99) mg/dL POC Glucose (mg/dL) 129 H 135 H 132 H (70-110) mg/dL 04/17/24 04/17/24 04/17/24 Range/Units 08:07 08:07 11:28 WBC 13.6 H (3.8-10.6) k/uL RBC 4.14 L (4.30-5.90) m/uL Hgb 12.2 L (13.0-17.5) gm/dL Hct 37.5 L (39.0-53.0) % Plt Count 503 H (150-450) k/uL Neutrophils # 10.6 H (1.3-7.7) k/uL Sodium 135 L (137-145) mmol/L Glucose 137 H (74-99) mg/dL POC Glucose (mg/dL) 114 H (70-110) mg/dL Microbiology - Last 24 Hours (Table) 04/12/24 11:30 Anaerobic Culture - Final Pleural Fluid 04/12/24 11:30 Gram Stain - Final Pleural Fluid Body Fluid Culture - Final Assessment and Plan Assessment: Persistent atrial fibrillation with RVR History of persistent atrial fibrillation previously maintaining sinus rhythm on low-dose flecainide Pneumonia Parapneumonic left-sided pleural effusion Hypertension Dyslipidemia Diabetes mellitus type 2 Plan: From cardiology's perspective we will continue Cardizem 90 mg p.o. 3 times daily. Due to new onset rash we will stop the amiodarone. We will increase the metoprolol to 100 mg p.o. twice daily. We will continue to follow the patient and provide further recommendations accordingly. CHIP PERSON note has been reviewed, I agree with a documented findings and plan of care. Patient was seen and examined.
--- NOTE | 2024-04-17 14:12 | P.PN ---
Subjective Progress Note Date: 04/17/24 This is a 58-year-old male patient who was hospitalized for left-sided chest pain. The patient has been experiencing pain, pleuritic in nature along the left lateral chest area and he has contacted his primary care physician and pneumonia was suspected and the patient was given a course of Zithromax on outpatient basis. His pain is somewhat subsided. He continues to have shortness of breath and ongoing pain along the left chest. No fever or chills. No significant cough sputum production or hemoptysis. He is currently on 2 L of oxygen by nasal cannula. The patient is also known to have chronic atrial fibrillation and at time of admission the patient was in A-fib RVR and the patient was started on a Cardizem drip. Hypertension hyperlipidemia diabetes mellitus type 2 has comorbid conditions. The patient is admitted on long-term anticoagulation. He has been maintained on Xarelto on outpatient basis. I saw the patient in the emergency department. He was room air oxygen. Reviewed the CAT scan of the chest and the patient has already developed a loculated left- sided pleural effusion which is moderate in size along with compressive atelectasis in the left lung base. There was also a nonspecific 1.7 cm left adrenal lesion, likely benign based on size. The white cell count is at 18.2 at time of admission with a hemoglobin 12.6 and a platelet count of 288. INR is 1.4. BUN is 20 with a creatinine of 1 and a sodium levels at 135. LFTs were mildly elevated with an AST of 61, ALT of 84, alkaline phosphatase of 177, troponins are negative, proBNP level is 103. The patient is currently on a combination of Rocephin and Zithromax. Also on a Cardizem drip for rate control. He also takes metoprolol 100 mg p.o. daily. He is on normal saline at rate of 20 cc an hour. Home medications have been resumed. No previous bouts of pneumonias. He is a non-smoker. 04/12/2024, the patient is being seen for a follow-up. The patient is doing well. The patient is stable. Denies having any specific complaints. Remains on room air oxygen. The patient underwent an ultrasound-guided pigtail catheter insertion today. Immediately, there was 100 cc of fluid removed and the fluid was sent for analysis. The patient remains on Rocephin and Zithromax. The white count of 18.7 with a hemoglobin 12.1. Electrolytes are all within normal limits. Blood culture is still negative. No other new complaints otherwise for now. On 04/13/2024, the patient is status post pigtail catheter insertion. Pleural fluid chemistry is consistent with an exudate with a white cell count of 731 and elevated LDH and protein. Noted since the catheter insertion, the patient has produced approximately 350 cc in the Pleur-evac. No evidence of any air leak. Repeat chest x-ray from today showed left basilar consolidation without any sizable pneumothorax. Attempted to instill alteplase today through the pigtail catheter. This failed. It is possible that the tube is kinked at this point in time. Recommend obtaining a follow-up CAT scan of the chest without contrast. Meanwhile, the patient remains in atrial fibrillation. Rate is controlled. He is off the Cardizem drip and is currently on oral Cardizem 90 mg p.o. 3 times daily. He is also on metoprolol 100 mg p.o. daily. Is on anticoagulation with Xarelto. He remains on IV antibiotics and he remains on IV Rocephin. White cell count from today is at 17.3 with a hemoglobin of 12.7 and a platelet count of 344. 04/14/2024, the patient remains stable on room air oxygen. A follow-up CAT scan of the chest was obtained today and the patient was found to have a small to moderate-sized left-sided pleural effusion with some ongoing loculation. The pigtail catheter was in a good location. Based on that, I attempted to flush again the catheter and I was able to flush it with saline. Based on that, alteplase was administered into the left hemithorax. Following that, the patient has produced an additional 400 cc of pleural fluid from the left pleural space. Clinically, he is doing well. No specific complaints. As mentioned, this was a complicated parapneumonic left-sided pleural effusion. White cell count is 17.3 with hemoglobin 4.7 and platelet count of 344. The cultures from the pleural fluid are still negative. Blood cultures also negative. The patient remains on IV Rocephin. No other significant events overnight. Remains on Levemir insulin 20 units daily and NovoLog as needed. Remains atrial fibrillation. Anticoagulation is with Xarelto. Metoprolol and milligrams p.o. daily for rate control in combination with Cardizem 90 mg p.o. 3 times daily. 04/15/2024, the patient is doing well. The patient underwent alteplase treatment through the pigtail catheter yesterday and there was a total of 700 cc of output since administration. Repeat chest x-ray was done today and shows a small left- sided pleural effusion. There is ongoing consolidation. The left hemidiaphragm is visualized on today's chest x-ray. No pleurisy. No hemoptysis. Cultures from the fluid is negative. The white cell count is 16 with a hemoglobin of 11.8. Electrolytes are all within normal limits. The patient continues to be in atrial fibrillation. The plan is to do a second dose of alteplase administration into the left pleural space today. On 04/16/2024, the patient is status post 2 alteplase treatments to the left pleural space and the patient has produced another 700 cc of pleural fluid over the past 24 hours following the second administration of alteplase. His chest x-ray continues to show some volume loss in the left lung base. I decided to proceed with a third treatment. He is doing well. Continues to have atrial fibrillation specially with mobility and activity where he becomes more tachycardic. No pleurisy. No hemoptysis. Cultures are negative. White cell count of 17, hemoglobin 11 and a platelet count of 403. BUN is 20 with a creatinine 0.9 and sodium levels at 133. The patient remains on IV Rocephin. No other significant events overnight. The patient remains on I anticoagulation with Xarelto. On 04/17/2024, the patient has already received a total of 3 infusions of alteplase into the pleural space. Most recent CAT scan of the chest that was done this morning showed some residual loculated fluid in the left upper hemithorax. The fluid collection in the left lung base is obviously smaller in size and there is improved aeration of the left lung. Cultures are negative and the patient remains on IV Rocephin. He was also having issues with atrial fibrillation and based on that the patient was started on amiodarone. He has developed diffuse maculopapular rash that is pruritic in nature. This is most like related to Rocephin and amiodarone is felt to be less likely contributing to this. The patient remains on anticoagulation with Xarelto. The patient remains on Cardizem 90 mg p.o. 3 times daily and the patient is also on metoprolol 100 mg p.o. twice a day. Amiodarone was discontinued. The patient will be given steroids regarding his maculopapular rash. No other significant events overnight. Patient remains on room air oxygen. I checked the pigtail catheter. Think the catheter itself was clogged. I unclog it and I am going to monitor the output for the next 24 hours. Objective - Vital Signs Vital signs: Vital Signs Temp 98.2 F 04/17/24 07:53 Pulse 95 04/17/24 11:42 Resp 18 04/17/24 11:42 BP 115/75 04/17/24 11:42 Pulse Ox 95 04/17/24 11:42 FiO2 Intake & Output 04/16/24 04/17/24 04/17/24 18:59 06:59 18:59 Intake Total 894 236 Output Total 440 975 30 Balance 454 -975 206 Weight 132.4 kg Intake: Oral 894 236 Output: Chest Tube Drainage 40 150 30 Pleural Catheter Left 40 150 30 Posterior Chest Urine 400 825 Other: Voiding Method Urinal Urinal Urinal - Exam General Appearance the patient is calm and comfortable no acute distress. The patient is currently on room air oxygen. Head exam was generally normal. There was no scleral icterus or corneal arcus. Mucous membranes were moist. Neck was supple and without jugular venous distension, thyromegaly, or carotid bruits. Carotids were easily palpable bilaterally. There was no adenopathy. Lung sounds are diminished in the left lung base along with dullness to percussion. Heart sounds are irregular consistent with atrial fibrillation. Positive S1-S2, no significant murmurs appreciated. Abdominal exam revealed normal bowel sounds. The abdomen was soft, non-tender, and without masses, organomegaly, or appreciable enlargement of the abdominal aorta. Examination of the extremities revealed easily palpable radial, femoral and pedal pulses. There was no cyanosis, clubbing or edema. Examination of the skin revealed no evidence of significant rashes, suspicious appearing nevi or other concerning lesions. Neurologically, the patient is awake and alert and the patient does not have any focal neurological deficit. Cranial nerves are essentially intact. - Labs CBC & Chem 7: 04/17/24 08:07 04/17/24 08:07 Labs: Abnormal Lab Results - Last 24 Hours (Table) 04/16/24 04/16/24 04/17/24 Range/Units 16:15 20:19 06:00 WBC (3.8-10.6) k/uL RBC (4.30-5.90) m/uL Hgb (13.0-17.5) gm/dL Hct (39.0-53.0) % Plt Count (150-450) k/uL Neutrophils # (1.3-7.7) k/uL Sodium (137-145) mmol/L Glucose (74-99) mg/dL POC Glucose (mg/dL) 129 H 135 H 132 H (70-110) mg/dL 04/17/24 04/17/24 04/17/24 Range/Units 08:07 08:07 11:28 WBC 13.6 H (3.8-10.6) k/uL RBC 4.14 L (4.30-5.90) m/uL Hgb 12.2 L (13.0-17.5) gm/dL Hct 37.5 L (39.0-53.0) % Plt Count 503 H (150-450) k/uL Neutrophils # 10.6 H (1.3-7.7) k/uL Sodium 135 L (137-145) mmol/L Glucose 137 H (74-99) mg/dL POC Glucose (mg/dL) 114 H (70-110) mg/dL Microbiology - Last 24 Hours (Table) 04/12/24 11:30 Anaerobic Culture - Final Pleural Fluid 04/12/24 11:30 Gram Stain - Final Pleural Fluid Body Fluid Culture - Final Assessment and Plan Plan: Parapneumonic loculated left-sided pleural effusion, status post pigtail catheter insertion and alteplase treatment x 3 with good output and some improvement in volume status and left lung base. Clinically stable. Noted the output since the third administration has dropped significantly. It is possible the tube itself was clogged. IR clogged the tube. I will keep the tube in for another few hours and monitor the output. If no output, I am going to remove the pigtail catheter. Meanwhile, the repeat CAT scan of the chest showed improved aeration of the left lung base. Improvement in the left lower lobe pleural effusion. Some residual pocket in the left upper lobe is still present. Pleuritic left-sided chest wall pain likely secondary to pneumonia and the patient was treated on outpatient basis with Zithromax, currently on IV Rocephin, pleuritic chest pain essentially recovered. Shortness of breath secondary to above Acute hypoxic respiratory failure, currently on room air oxygen Chronic atrial fibrillation with rapid ventricular response, rate is controlled and the patient is currently on a combination of metoprolol and Cardizem and anticoagulation with Xarelto. Hypertension Hyperlipidemia Diabetes mellitus Diffuse maculopapular rash, likely secondary to Rocephin. Plan Continue current antibiotic coverage, cultures are negative. I recommend switching this patient to Levaquin specially with ongoing rash and give the patient IV Solu-Medrol for now and monitor the rash. The patient received a total of 3 doses of alteplase . Output from the pigtail catheter is noted. It is diminished and the catheter may be removed. There is a residual pocket in the left upper lobe that may be left alone. This will be difficult to drain specially the scapula is along the path of AN insertion of another pigtail catheter in that area. Incentive spirometer Will continue to follow
[2024-04-17 16:44] LABS: Glucose,Whole Blood 188 mg/dL (70-110)
[2024-04-17] MEDS: LEVOFLOXACIN 750 MG TAB PO SCH (17:14)
[2024-04-17] MEDS: diphenhydrAMINE 50 MG/ML 1 ML VIAL IVP PRN (18:35)
[2024-04-17 20:31] LABS: Glucose,Whole Blood 223 mg/dL (70-110)
[2024-04-17] MEDS: METOPROLOL SUCCINATE (ER) 100 MG TAB.ER.24H PO SCH (21:44)
[2024-04-18 06:29] LABS: Glucose,Whole Blood 189 mg/dL (70-110)
[2024-04-18 06:29] LABS: Glucose,Whole Blood 193 mg/dL (70-110)
[2024-04-18 08:16] LABS: Basophils % (A) 0 %; Eosinophils % (A) 0 %; HCT 36.6 % (39.0-53.0); HGB 11.6 gm/dL (13.0-17.5); Lymphocytes # (A) 0.8 k/uL (1.0-4.8); Lymphocytes % (A) 4 %; MCH 28.8 pg (25.0-35.0); MCHC 31.7 g/dL (31.0-37.0); MCV 90.8 fL (80.0-100.0); Mean Platelet Volume 8.8; Monocytes # (A) 0.4 k/uL (0-1.0); Monocytes % (A) 2 %; Neutrophils % (A) 93 %; Platelet Count 553 k/uL (150-450); RBC 4.03 m/uL (4.30-5.90); RDW 13.7 % (11.5-15.5); WBC 18.4 k/uL (3.8-10.6)
--- NOTE | 2024-04-18 08:24 | XR ---
EXAMINATION TYPE: XR chest 1V DATE OF EXAM: 04/18/2024 6:43 AM CLINICAL INDICATION: Male, 58 years old with history of Pneumonia; [facility] COMPARISON: Chest radiograph from one day prior. TECHNIQUE: XR chest 1V Frontal view of the chest. FINDINGS: Lungs/Pleura: Blunting of the left costophrenic angle. There is no evidence of right pleural effusion , focal consolidation, or pneumothorax. Pulmonary vascularity: Unremarkable. Heart/mediastinum: Cardiomediastinal silhouette is unremarkable. Musculoskeletal: No acute osseous pathology. Other findings: None Lines/Tubes: Left thoracotomy tube without evidence of pneumothorax. IMPRESSION: Lower lung airspace opacities with possible super imposed left pleural effusion. [facility], , 04/18/2024 8:22 AM
[2024-04-18 08:32] LABS: African American GFR (CKD) >90 (>60 ml/min/1.73 sqM); Anion Gap 9 mmol/L; Blood Urea Nitrogen 20 mg/dL (9-20); Calcium 9.3 mg/dL (8.4-10.2); Carbon Dioxide 24 mmol/L (22-30); Chloride 103 mmol/L (98-107); Glucose 181 mg/dL (74-99); Non-African American GFR(CKD) >90 (>60 ml/min/1.73 sqM); Potassium 4.7 mmol/L (3.5-5.1); Sodium 136 mmol/L (137-145)
[2024-04-18 11:31] LABS: Glucose,Whole Blood 225 mg/dL (70-110)
--- NOTE | 2024-04-18 16:21 | P.PN ---
Subjective HISTORY OF PRESENTING ILLNESS This is a 58-year-old male patient of Dr. Quesada with past medical history of persistent atrial fibrillation maintaining sinus rhythm on low-dose flecainide, hypertension, dyslipidemia, obesity, diabetes mellitus type 2. We have been asked to evaluate the patient for A-fib with RVR. Patient states that starting about 1 week ago he was not feeling good. He saw his PCP on and was given antibiotics and nebulizer in the office and he was sent home on inhaler and antibiotics. On Thursday he was still not feeling very good and was almost completed the course of antibiotics. He decided to come into the hospital for further evaluation. He denies any chest pain, pressure or tightness. He denies dizziness. No palpitations. He does complain of cough and a little wheezing and a little sputum production that started out is ramirez and bloody and now is yellow. He states he has had occasional fever. He is a non-smoker. He has not had any caffeine intake for the past week but usually drinks a 20 ounce coffee daily. He has rare alcohol intake. Blood pressure 130/62, heart rate 101-221, pulse ox 91% on 2 L nasal cannula. Patient is status post 2 L of IV fluid and started on antibiotics and Cardizem drip is currently at 10 mg/h. Patient is seen today in the emergency center waiting for bed on the cardiac stepdown unit. EKG: Atrial fibrillation at 155 bpm Chest x-ray: Retrocardiac infiltrate. CTA of the chest is suboptimal study without acute pulmonary embolism. Moderate size loculated left-sided pleural fluid collection with associated compressive atelectasis. Consider thoracentesis. Nonspecific 1.7 cm left adrenal mass. Echocardiogram reveals EF of 55 to 60%, poorly visualized intracardiac valves, technically difficult study for interpretation. 04/16/2024 Chest x-ray this morning showed interval decrease in the left open opacification involving the left lung base likely combination of pleural effusion and atelectasis or pneumonia. Patient complained of episode of chills last night and was febrile at that time with a temperature of 102.7 F. Heart rate remains poorly controlled. He remains on diltiazem 90 mg p.o. 3 times daily and metoprolol succinate 100 mg every morning and 50 mg every afternoon. Pulmonology remains on the case and he underwent a second dose of alteplase administration into the left pleural space yesterday. Pigtail catheter remains in place. Overall patient continues to feel short of breath with minimal activity. Denies any chest discomfort or edema. 04/17/2024 Patient was seen and examined sitting up in a chair. He is anticipating pigtail catheter to be pulled soon. He was initiated on amiodarone yesterday but developed a rash. Vital signs have been stable heart rate remains somewhat elevated. 04/18 Patient seen and examined. Patient remains in sinus rhythm, borderline sinus tachycardia. His diltiazem was increased and has been tolerating. PHYSICAL EXAMINATION Vital signs reviewed. CONSTITUTIONAL: No apparent distress. HEENT: Head is normocephalic. Pupils are equal, round. Sclerae anicteric. Mucous membranes of the mouth are moist. No JVD. No carotid bruit. CHEST EXAMINATION: Lungs are clear to auscultation. No chest wall tenderness is noted on palpation or with deep breathing. HEART EXAMINATION: Regular rate and rhythm. S1, S2 heard. No murmurs, gallops or rub. ABDOMEN: Soft, nontender. Positive bowel sounds. EXTREMITIES: 2+ peripheral pulses, no lower extremity edema and no calf tenderness. NEUROLOGIC EXAMINATION: Patient is awake, alert and oriented x3. ASSESSMENT Persistent atrial fibrillation with RVR, now normal sinus rhythm History of persistent atrial fibrillation previously maintaining sinus rhythm on low-dose flecainide Pneumonia Parapneumonic left-sided pleural effusion Hypertension Dyslipidemia Diabetes mellitus type 2 Plan: Patient was having persistent A. fib with RVR however back in sinus rhythm. He had issues with amiodarone and therefore this was discontinued with a rash. We will place him back on flecainide and continue with increased dose of metoprolol and diltiazem. Hopeful discontinuation of chest tube Pleurx catheter however appears relatively stable from a cardiac standpoint and hopeful discharge in the next 24-48 hours. Objective - Vital Signs Vital signs: Vital Signs Temp 97.9 F 04/18/24 08:00 Pulse 92 04/18/24 16:18 Resp 18 04/18/24 08:00 BP 147/78 04/18/24 08:00 Pulse Ox 95 04/18/24 08:00 FiO2 Intake & Output 04/17/24 04/18/24 04/18/24 18:59 06:59 18:59 Intake Total 236 118 Output Total 30 0 Balance 206 118 Weight 131.5 kg Intake: Oral 236 118 Output: Chest Tube Drainage 30 0 Pleural Catheter Left 30 0 Posterior Chest Other: Voiding Method Urinal Urinal # Voids 3 1 - Labs CBC & Chem 7: 04/18/24 07:23 04/18/24 07:23 Labs: Abnormal Lab Results - Last 24 Hours (Table) 04/17/24 04/17/24 04/18/24 Range/Units 16:39 20:27 06:27 WBC (3.8-10.6) k/uL RBC (4.30-5.90) m/uL Hgb (13.0-17.5) gm/dL Hct (39.0-53.0) % Plt Count (150-450) k/uL Neutrophils # (1.3-7.7) k/uL Lymphocytes # (1.0-4.8) k/uL Sodium (137-145) mmol/L Glucose (74-99) mg/dL POC Glucose (mg/dL) 188 H 223 H 193 H (70-110) mg/dL 04/18/24 04/18/24 04/18/24 Range/Units 06:28 07:23 07:23 WBC 18.4 H (3.8-10.6) k/uL RBC 4.03 L (4.30-5.90) m/uL Hgb 11.6 L (13.0-17.5) gm/dL Hct 36.6 L (39.0-53.0) % Plt Count 553 H (150-450) k/uL Neutrophils # 17.0 H (1.3-7.7) k/uL Lymphocytes # 0.8 L (1.0-4.8) k/uL Sodium 136 L (137-145) mmol/L Glucose 181 H (74-99) mg/dL POC Glucose (mg/dL) 189 H (70-110) mg/dL 04/18/24 Range/Units 11:29 WBC (3.8-10.6) k/uL RBC (4.30-5.90) m/uL Hgb (13.0-17.5) gm/dL Hct (39.0-53.0) % Plt Count (150-450) k/uL Neutrophils # (1.3-7.7) k/uL Lymphocytes # (1.0-4.8) k/uL Sodium (137-145) mmol/L Glucose (74-99) mg/dL POC Glucose (mg/dL) 225 H (70-110) mg/dL
--- NOTE | 2024-04-18 16:29 | P.PN ---
Subjective Progress Note Date: 04/18/24 This is a 58-year-old gentleman admitted with persistent atrial fibrillation with RVR, maintained on Cardizem drip. CTA reporting moderate size loculated left-sided pleural fluid collection with associated compressive atelectasis, nonspecific 1.7 cm left adrenal mass-benign etiology favored based on size. Maintained on azithromycin, ceftriaxone. Afebrile, WBC Improving, decreased to 15.4. Hemoglobin 11.7, MCV 90.3, platelets 280, electrolytes and renal function stable. T. bili 1, AST normalized, ALT decreased to 71, alk phos increased to 204. Maintaining O2 sats in the low 90s on 2 L nasal cannula. 04/12/2024 continues on ceftriaxone, azithromycin evaluated by pulmonary recommending pigtail catheter placement with probable thrombolytic therapy secondary to left sided loculated pleural effusion, complicated possibly secondary to post pneumonia. Maintaining O2 sats of 94% on room air. Denies shortness of breath. Reports "coughing spells with sweats". Afebrile, WBC increased to 18.7. maintained on Cardizem drip, telemetry atrial fibrillation with controlled ventricular rate. Bicarb 23, BUN 18, creatinine 0.94. Hemoglobin A1c 7.1. Blood sugars better controlled on Levemir and NovoLog sliding scale insulins. 04/13/2024 Telemetry atrial fibrillation, heart rates currently in the 120s, maintained on oral Cardizem, metoprolol, valsartan. Anticoagulated with Xarelto. continues on ceftriaxone Tmax 101.2, WBC decreased to 17.3. Status post pigtail catheter placement. Follow chest x-ray reporting left-sided consolidation and small pleural effusion, no sizable pneumothorax. Pulmonary attempted to instill alteplase via pigtail catheter, unsuccessfully. Chest CT ordered. reports mild shortness of breath, productive cough with yellow sputum. 04/14/2024 reports he feels better today with cough less productive. telemetry atrial fibrillation heart rates better controlled, low 100s. Tmax 99.7. Maintaining O2 sats in the low 90s on room air .chest CT reports small to moderate left pleural effusion, possibly loculated, chest tube remains in posit ion, consolidation involving left lung likely on the basis of compressive atelectasis from the pleural fluid. 04/15/2024 remains in atrial fibrillation, had been controlled throughout the night this morning prior to a.m. med administration, heart rates up to 150s. Denies chest pain, palpitations or shortness of breath. Alteplase instilled yesterday. Reports improved breathing, less pressure. Positive cough. Maintaining O2 sats of 93% on room air. Tmax 100.1, chest x-ray pending. Labs pending. Blood sugars controlled. 04/18/2024 potential DC of pigtail catheter ,chest x-ray pending. Yesterday developed rash after amiodarone drip initiated. Antibiotics adjusted with addition of steroids with significant clinical improvement. Telemetry sinus rhythm. Sitting up in chair, reports ambulated in the hallway, tolerated well. Mild nonproductive cough. Objective - Vital Signs Vital signs: Vital Signs Temp 97.9 F 04/18/24 08:00 Pulse 92 04/18/24 16:18 Resp 18 04/18/24 08:00 BP 147/78 04/18/24 08:00 Pulse Ox 95 04/18/24 08:00 FiO2 Intake & Output 04/17/24 04/18/24 04/18/24 18:59 06:59 18:59 Intake Total 236 118 Output Total 30 0 Balance 206 118 Weight 131.5 kg Intake: Oral 236 118 Output: Chest Tube Drainage 30 0 Pleural Catheter Left 30 0 Posterior Chest Other: Voiding Method Urinal Urinal # Voids 3 1 - Exam PHYSICAL EXAM: VITAL SIGNS: [As above] GENERAL: Alert and oriented x 3, sitting up in chair, no acute distress. HEENT: Conjunctivae normal. eyes normal. NECK: Supple, no JVD. CARDIOVASCULAR: S1, S2, regular rate and rhythm , tachycardic ,no murmur RESPIRATION: Unlabored, improved air entry, clear to auscultation, left-sided chest tube present. ABDOMEN: Soft, nontender . No guarding. no masses palpable. +BS LEGS: No edema. no swelling, no calf tenderness NERVOUS SYSTEM: Cranial N 2-12 grossly normal. No focal deficits. Strength and sensation grossly intact. Skin: Warm and dry, no rash. - Labs CBC & Chem 7: 04/18/24 07:23 04/18/24 07:23 Labs: Abnormal Lab Results - Last 24 Hours (Table) 09/29/24 09/29/24 09/30/24 Range/Units 16:39 20:27 06:27 WBC (3.8-10.6) k/uL RBC (4.30-5.90) m/uL Hgb (13.0-17.5) gm/dL Hct (39.0-53.0) % Plt Count (150-450) k/uL Neutrophils # (1.3-7.7) k/uL Lymphocytes # (1.0-4.8) k/uL Sodium (137-145) mmol/L Glucose (74-99) mg/dL POC Glucose (mg/dL) 188 H 223 H 193 H (70-110) mg/dL 04/18/24 04/18/24 04/18/24 Range/Units 06:28 07:23 07:23 WBC 18.4 H (3.8-10.6) k/uL RBC 4.03 L (4.30-5.90) m/uL Hgb 11.6 L (13.0-17.5) gm/dL Hct 36.6 L (39.0-53.0) % Plt Count 553 H (150-450) k/uL Neutrophils # 17.0 H (1.3-7.7) k/uL Lymphocytes # 0.8 L (1.0-4.8) k/uL Sodium 136 L (137-145) mmol/L Glucose 181 H (74-99) mg/dL POC Glucose (mg/dL) 189 H (70-110) mg/dL 04/18/24 Range/Units 11:29 WBC (3.8-10.6) k/uL RBC (4.30-5.90) m/uL Hgb (13.0-17.5) gm/dL Hct (39.0-53.0) % Plt Count (150-450) k/uL Neutrophils # (1.3-7.7) k/uL Lymphocytes # (1.0-4.8) k/uL Sodium (137-145) mmol/L Glucose (74-99) mg/dL POC Glucose (mg/dL) 225 H (70-110) mg/dL Assessment and Plan Assessment: Chronic atrial fibrillation with RVR, currently sinus rhythm Parapneumonic loculated left-sided pleural effusion, status post pigtail catheter placement, exudative, culture pending. Status post alteplase instillation x 3 Pleuritic left-sided chest wall pain secondary to the above, improving. Shortness of breath secondary to the above with acute hypoxic respiratory failure, improved Elevated D-dimer, pulmonary embolism ruled out Leukocytosis secondary to the above Diabetes mellitus, hemoglobin A1c 7.1 Incidental finding of nonspecific 1.7 cm left adrenal mass-benign etiology favored based on size. Further evaluation with outpatient CT/MRI Hypertension, dyslipidemia Plan: Continue on current medication regimen ,monitoring and symptomatic treatment. Chest x-ray pending with potential DC of pigtail catheter.maintain IV antibiotics .aggressive pulmonary toileting with incentive spirometer reinforced. antiarrhythmics as per cardiology. Discharge planning in progress for the next 24 hours pending DC of pigtail cath. The impression and plan of care has been dictated as directed. : I performed a history and examination of this patient, discussed the same with the dictator. I agree with the dictator's note ,documented as a scribe. Any additional findings or plans will be noted.
[2024-04-18 16:53] LABS: Glucose,Whole Blood 230 mg/dL (70-110)
--- NOTE | 2024-04-18 17:24 | P.PN ---
Subjective Progress Note Date: 04/18/24 This is a 58-year-old male patient who was hospitalized for left-sided chest pain. The patient has been experiencing pain, pleuritic in nature along the left lateral chest area and he has contacted his primary care physician and pneumonia was suspected and the patient was given a course of Zithromax on o utpatient basis. His pain is somewhat subsided. He continues to have shortness of breath and ongoing pain along the left chest. No fever or chills. No significant cough sputum production or hemoptysis. He is currently on 2 L of oxygen by nasal cannula. The patient is also known to have chronic atrial fibrillation and at time of admission the patient was in A-fib RVR and the patient was started on a Cardizem drip. Hypertension hyperlipidemia diabetes mellitus type 2 has comorbid conditions. The patient is admitted on long-term anticoagulation. He has been maintained on Xarelto on outpatient basis. I saw the patient in the emergency department. He was room air oxygen. Reviewed the CAT scan of the chest and the patient has already developed a loculated left- sided pleural effusion which is moderate in size along with compressive atelectasis in the left lung base. There was also a nonspecific 1.7 cm left adrenal lesion, likely benign based on size. The white cell count is at 18.2 at time of admission with a hemoglobin 12.6 and a platelet count of 288. INR is 1.4. BUN is 20 with a creatinine of 1 and a sodium levels at 135. LFTs were mildly elevated with an AST of 61, ALT of 84, alkaline phosphatase of 177, troponins are negative, proBNP level is 103. The patient is currently on a combination of Rocephin and Zithromax. Also on a Cardizem drip for rate control. He also takes metoprolol 100 mg p.o. daily. He is on normal saline at rate of 20 cc an hour. Home medications have been resumed. No previous bouts of pneumonias. He is a non-smoker. 04/12/2024, the patient is being seen for a follow-up. The patient is doing well. The patient is stable. Denies having any specific complaints. Remains on room air oxygen. The patient underwent an ultrasound-guided pigtail catheter insertion today. Immediately, there was 100 cc of fluid removed and the fluid was sent for analysis. The patient remains on Rocephin and Zithromax. The white count of 18.7 with a hemoglobin 12.1. Electrolytes are all within normal limits. Blood culture is still negative. No other new complaints otherwise for now. On 04/13/2024, the patient is status post pigtail catheter insertion. Pleural fluid chemistry is consistent with an exudate with a white cell count of 731 and elevated LDH and protein. Noted since the catheter insertion, the patient has produced approximately 350 cc in the Pleur-evac. No evidence of any air leak. Repeat chest x-ray from today showed left basilar consolidation without any sizable pneumothorax. Attempted to instill alteplase today through the pigtail catheter. This failed. It is possible that the tube is kinked at this point in time. Recommend obtaining a follow-up CAT scan of the chest without contrast. Meanwhile, the patient remains in atrial fibrillation. Rate is controlled. He is off the Cardizem drip and is currently on oral Cardizem 90 mg p.o. 3 times daily. He is also on metoprolol 100 mg p.o. daily. Is on anticoagulation with Xarelto. He remains on IV antibiotics and he remains on IV Rocephin. White cell count from today is at 17.3 with a hemoglobin of 12.7 and a platelet count of 344. 04/14/2024, the patient remains stable on room air oxygen. A follow-up CAT scan of the chest was obtained today and the patient was found to have a small to moderate-sized left-sided pleural effusion with some ongoing loculation. The pigtail catheter was in a good location. Based on that, I attempted to flush again the catheter and I was able to flush it with saline. Based on that, alteplase was administered into the left hemithorax. Following that, the patient has produced an additional 400 cc of pleural fluid from the left pleural space. Clinically, he is doing well. No specific complaints. As mentioned, this was a complicated parapneumonic left-sided pleural effusion. White cell count is 17.3 with hemoglobin 4.7 and platelet count of 344. The cultures from the pleural fluid are still negative. Blood cultures also negative. The patient remains on IV Rocephin. No other significant events overnight. Remains on Levemir insulin 20 units daily and NovoLog as needed. Remains atrial fibrillation. Anticoagulation is with Xarelto. Metoprolol and milligrams p.o. daily for rate control in combination with Cardizem 90 mg p.o. 3 times daily. 04/15/2024, the patient is doing well. The patient underwent alteplase treatment through the pigtail catheter yesterday and there was a total of 700 cc of output since administration. Repeat chest x-ray was done today and shows a small left- sided pleural effusion. There is ongoing consolidation. The left hemidiaphragm is visualized on today's chest x-ray. No pleurisy. No hemoptysis. Cultures from the fluid is negative. The white cell count is 16 with a hemoglobin of 11.8. Electrolytes are all within normal limits. The patient continues to be in atrial fibrillation. The plan is to do a second dose of alteplase administration into the left pleural space today. On 04/16/2024, the patient is status post 2 alteplase treatments to the left pleural space and the patient has produced another 700 cc of pleural fluid over the past 24 hours following the second administration of alteplase. His chest x-ray continues to show some volume loss in the left lung base. I decided to proceed with a third treatment. He is doing well. Continues to have atrial fibrillation specially with mobility and activity where he becomes more tachycardic. No pleurisy. No hemoptysis. Cultures are negative. White cell count of 17, hemoglobin 11 and a platelet count of 403. BUN is 20 with a creatinine 0.9 and sodium levels at 133. The patient remains on IV Rocephin. No other significant events overnight. The patient remains on I anticoagulation with Xarelto. On 04/17/2024, the patient has already received a total of 3 infusions of alteplase into the pleural space. Most recent CAT scan of the chest that was done this morning showed some residual loculated fluid in the left upper hemithorax. The fluid collection in the left lung base is obviously smaller in size and there is improved aeration of the left lung. Cultures are negative and the patient remains on IV Rocephin. He was also having issues with atrial fibrillation and based on that the patient was started on amiodarone. He has developed diffuse maculopapular rash that is pruritic in nature. This is most like related to Rocephin and amiodarone is felt to be less likely contributing to this. The patient remains on anticoagulation with Xarelto. The patient remains on Cardizem 90 mg p.o. 3 times daily and the patient is also on metoprolol 100 mg p.o. twice a day. Amiodarone was discontinued. The patient will be given steroids regarding his maculopapular rash. No other significant events overnight. Patient remains on room air oxygen. I checked the pigtail catheter. Think the catheter itself was clogged. I unclog it and I am going to monitor the output for the next 24 hours. The patient is seen today April 18, 2024 in follow-up on the selective care unit. He is currently sitting up in a chair at the bedside. Awake and alert in no acute distress. He is maintaining good O2 saturations in the 90s on room air. He has been afebrile. Hemodynamically stable. Pleural fluid cultures revealed no growth. Blood cultures revealed no growth. White count 18.4. Hemoglobin 11.6. Sodium 136. Potassium 4.7. Bicarb 24. BUN 20. Creatinine 0.81. Glucose 181. Catheter remains in place to the left chest. There has been minimal drainage in the past 24 hours. This with a small left pleural effusion. He is continued on DuoNeb inhalations, Solu-Medrol, anticoagulated with Xarelto. Antibiotics in the form of Levaquin. Objective - Vital Signs Vital signs: Vital Signs Temp 97.7 F 04/18/24 12:00 Pulse 96 04/18/24 16:29 Resp 18 04/18/24 14:00 BP 168/81 04/18/24 12:00 Pulse Ox 95 04/18/24 12:00 FiO2 Intake & Output 04/17/24 04/18/24 04/18/24 18:59 06:59 18:59 Intake Total 236 118 Output Total 30 0 Balance 206 118 Weight 131.5 kg Intake: Oral 236 118 Output: Chest Tube Drainage 30 0 Pleural Catheter Left 30 0 Posterior Chest Other: Voiding Method Urinal Urinal Urinal # Voids 3 1 - Exam GENERAL EXAM: Alert, active, very pleasant 58-year-old male, on room air, comfortable in no apparent distress. HEAD: Normocephalic. EYES: Normal reaction of pupils, equal size. NOSE: Clear with pink turbinates. THROAT: No erythema or exudates. NECK: No masses, no JVD. CHEST: No chest wall deformity. Left-sided pigtail catheter in place. Minimal output. LUNGS: Equal air entry with the left lung base. CVS: S1 and S2 normal with no audible murmur, regular rhythm. ABDOMEN: No hepatosplenomegaly, normal bowel sounds, no guarding or rigidity. SPINE: No scoliosis or deformity SKIN: No rashes CENTRAL NERVOUS SYSTEM: No focal deficits, tone is normal in all 4 extremities. EXTREMITIES: There is no peripheral edema. No clubbing, no cyanosis. Peripher al pulses are intact. - Labs CBC & Chem 7: 04/18/24 07:23 04/18/24 07:23 Labs: Abnormal Lab Results - Last 24 Hours (Table) 04/17/24 04/18/24 04/18/24 Range/Units 20:27 06:27 06:28 WBC (3.8-10.6) k/uL RBC (4.30-5.90) m/uL Hgb (13.0-17.5) gm/dL Hct (39.0-53.0) % Plt Count (150-450) k/uL Neutrophils # (1.3-7.7) k/uL Lymphocytes # (1.0-4.8) k/uL Sodium (137-145) mmol/L Glucose (74-99) mg/dL POC Glucose (mg/dL) 223 H 193 H 189 H (70-110) mg/dL 04/18/24 04/18/24 04/18/24 Range/Units 07:23 07:23 11:29 WBC 18.4 H (3.8-10.6) k/uL RBC 4.03 L (4.30-5.90) m/uL Hgb 11.6 L (13.0-17.5) gm/dL Hct 36.6 L (39.0-53.0) % Plt Count 553 H (150-450) k/uL Neutrophils # 17.0 H (1.3-7.7) k/uL Lymphocytes # 0.8 L (1.0-4.8) k/uL Sodium 136 L (137-145) mmol/L Glucose 181 H (74-99) mg/dL POC Glucose (mg/dL) 225 H (70-110) mg/dL 04/18/24 Range/Units 16:51 WBC (3.8-10.6) k/uL RBC (4.30-5.90) m/uL Hgb (13.0-17.5) gm/dL Hct (39.0-53.0) % Plt Count (150-450) k/uL Neutrophils # (1.3-7.7) k/uL Lymphocytes # (1.0-4.8) k/uL Sodium (137-145) mmol/L Glucose (74-99) mg/dL POC Glucose (mg/dL) 230 H (70-110) mg/dL Assessment and Plan Assessment: Parapneumonic loculated left-sided pleural effusion, status post pigtail catheter insertion and alteplase treatment x 3 with good output and some improvement in volume status and left lung base. Clinically stable. Noted the output since the third administration has dropped significantly. Repeat CAT scan of the chest showed improved aeration of the left lung base. Improvement in the left lower lobe pleural effusion. Some residual pocket in the left upper lobe is still present. Pleuritic left-sided chest wall pain likely secondary to pneumonia and the patient was treated on outpatient basis with Zithromax, currently on Levaquin, pleuritic chest pain essentially recovered. Shortness of breath secondary to above Acute hypoxic respiratory failure, currently on room air oxygen Chronic atrial fibrillation with rapid ventricular response, rate is controlled and the patient is currently on a combination of metoprolol and Cardizem and anticoagulation with Xarelto. Hypertension Hyperlipidemia Diabetes mellitus Diffuse maculopapular rash, likely secondary to Rocephin. Plan The patient was seen and evaluated Chest x-ray, labs and medications reviewed Very minimal output of the left pigtail catheter Plans for removal today Cleared for discharge from the pulmonary standpoint Complete a course of Levaquin Follow-up in the office in 1 week I have personally seen and examined the patient, performed the documentation and the assessment and plan as written. Number of minutes spent on the visit: 10.
[2024-04-18 20:00] LABS: Glucose,Whole Blood 290 mg/dL (70-110)
[2024-04-19 06:05] LABS: Glucose,Whole Blood 199 mg/dL (70-110)
[2024-04-19 08:37] VITALS: RESP 20
[2024-04-19 11:44] VITALS: BP 159/93; TEMP 97.2
[2024-04-19 11:55] LABS: Glucose,Whole Blood 211 mg/dL (70-110)
[2024-04-19 12:02] VITALS: PULSE 92
--- NOTE | 2024-04-19 13:12 | P.PN ---
Subjective HISTORY OF PRESENT ILLNESS: HISTORY OF PRESENTING ILLNESS This is a 58-year-old male patient of Dr. Quesada with past medical history of persistent atrial fibrillation maintaining sinus rhythm on low-dose flecainide, hypertension, dyslipidemia, obesity, diabetes mellitus type 2. We have been asked to evaluate the patient for A-fib with RVR. Patient states that starting about 1 week ago he was not feeling good. He saw his PCP on and was given antibiotics and nebulizer in the office and he was sent home on inhaler and antibiotics. On Thursday he was still not feeling very good and was almost completed the course of antibiotics. He decided to come into the hospital for further evaluation. He denies any chest pain, pressure or tightness. He denies dizziness. No palpitations. He does complain of cough and a little wheezing and a little sputum production that started out is ramirez and bloody and now is yellow. He states he has had occasional fever. He is a non-smoker. He has not had any caffeine intake for the past week but usually drinks a 20 ounce coffee daily. He has rare alcohol intake. Blood pressure 130/62, heart rate 101-221, pulse ox 91% on 2 L nasal cannula. Patient is status post 2 L of IV fluid and started on antibiotics and Cardizem drip is currently at 10 mg/h. Patient is seen today in the emergency center waiting for bed on the cardiac stepdown unit. EKG: Atrial fibrillation at 155 bpm Chest x-ray: Retrocardiac infiltrate. CTA of the chest is suboptimal study without acute pulmonary embolism. Moderate size loculated left-sided pleural fluid collection with associated compressive atelectasis. Consider thoracentesis. Nonspecific 1.7 cm left adrenal mass. Echocardiogram reveals EF of 55 to 60%, poorly visualized intracardiac valves, technically difficult study for interpretation. 04/16/2024 Chest x-ray this morning showed interval decrease in the left open opacification involving the left lung base likely combination of pleural effusion and atelectasis or pneumonia. Patient complained of episode of chills last night and was febrile at that time with a temperature of 102.7 F. Heart rate remains poorly controlled. He remains on diltiazem 90 mg p.o. 3 times daily and metoprolol succinate 100 mg every morning and 50 mg every afternoon. Pulmonology remains on the case and he underwent a second dose of alteplase administration into the left pleural space yesterday. Pigtail catheter remains in place. Overall patient continues to feel short of breath with minimal activity. Denies any chest discomfort or edema. 04/17/2024 Patient was seen and examined sitting up in a chair. He is anticipating pigtail catheter to be pulled soon. He was initiated on amiodarone yesterday but developed a rash. Vital signs have been stable heart rate remains somewhat elevated. 04/18 Patient seen and examined. Patient remains in sinus rhythm, borderline sinus tachycardia. His diltiazem was increased and has been tolerating. Addendum entered and electronically signed by Tomasz Johnson DO 04/18/24 16:22: Hold Flecainide for now however once off Levaquin we will restart. Consider outpt ablation. 04/19/2024 Patient examined this morning at the bedside. He is sitting up in the chair. He currently denies chest pain or pressure. He denies shortness of breath. He feels as though his voice is hoarse this morning and feels some congestion in his throat. His pigtail catheter has been discontinued. He is maintaining sinus mechanism. PHYSICAL EXAM: VITAL SIGNS: Reviewed. GENERAL: Well-developed in no acute distress. NECK: Supple. No JVD or thyromegaly LUNGS: Respirations even and unlabored. Lungs essentially clear to auscultation bilaterally. HEART: Regular rate and rhythm. S1 and S2 heard. EXTREMITIES: Normal range of motion. No clubbing or cyanosis. Peripheral pulses intact. No lower extremity edema ASSESSMENT: Persistent atrial fibrillation with RVR, now normal sinus rhythm History of persistent atrial fibrillation previously maintaining sinus rhythm on low-dose flecainide Pneumonia Parapneumonic left-sided pleural effusion Hypertension Dyslipidemia Diabetes mellitus type 2 PLAN: Continue current cardiac medications Flecainide currently on hold. Patient instructed to begin flecainide after he finishes his course of Levaquin. Patient is stable for discharge home today from a cardiac standpoint Nurse practitioner note has been reviewed by physician. Signing provider agrees with the documented findings, assessment, and plan of care documented by [employer] as a scribe. Objective - Vital Signs Vital signs: Vital Signs Temp 97.9 F 04/19/24 08:00 Pulse 101 H 04/19/24 08:00 Resp 20 04/19/24 08:00 BP 154/91 10/01/24 08:00 Pulse Ox 95 04/19/24 08:00 FiO2 Intake & Output 04/18/24 04/19/24 04/19/24 18:59 06:59 18:59 Intake Total 358 Output Total 0 Balance 358 Weight 130.7 kg Intake: Oral 358 Output: Chest Tube Drainage 0 Pleural Catheter Left 0 Posterior Chest Other: Voiding Method Urinal Urinal # Voids 1 - Labs CBC & Chem 7: 04/18/24 07:23 04/18/24 07:23 Labs: Abnormal Lab Results - Last 24 Hours (Table) 04/18/24 04/18/24 04/18/24 Range/Units 11:29 16:51 19:59 POC Glucose (mg/dL) 225 H 230 H 290 H (70-110) mg/dL 04/19/24 Range/Units 06:03 POC Glucose (mg/dL) 199 H (70-110) mg/dL
--- NOTE | 2024-04-19 15:04 | P.PN ---
Subjective Progress Note Date: 04/19/24 This is a 58-year-old male patient who was hospitalized for left-sided chest pain. The patient has been experiencing pain, pleuritic in nature along the left lateral chest area and he has contacted his primary care physician and pneumonia was suspected and the patient was given a course of Zithromax on o utpatient basis. His pain is somewhat subsided. He continues to have shortness of breath and ongoing pain along the left chest. No fever or chills. No significant cough sputum production or hemoptysis. He is currently on 2 L of oxygen by nasal cannula. The patient is also known to have chronic atrial fibrillation and at time of admission the patient was in A-fib RVR and the patient was started on a Cardizem drip. Hypertension hyperlipidemia diabetes mellitus type 2 has comorbid conditions. The patient is admitted on long-term anticoagulation. He has been maintained on Xarelto on outpatient basis. I saw the patient in the emergency department. He was room air oxygen. Reviewed the CAT scan of the chest and the patient has already developed a loculated left- sided pleural effusion which is moderate in size along with compressive atelectasis in the left lung base. There was also a nonspecific 1.7 cm left adrenal lesion, likely benign based on size. The white cell count is at 18.2 at time of admission with a hemoglobin 12.6 and a platelet count of 288. INR is 1.4. BUN is 20 with a creatinine of 1 and a sodium levels at 135. LFTs were mildly elevated with an AST of 61, ALT of 84, alkaline phosphatase of 177, troponins are negative, proBNP level is 103. The patient is currently on a combination of Rocephin and Zithromax. Also on a Cardizem drip for rate control. He also takes metoprolol 100 mg p.o. daily. He is on normal saline at rate of 20 cc an hour. Home medications have been resumed. No previous bouts of pneumonias. He is a non-smoker. 04/12/2024, the patient is being seen for a follow-up. The patient is doing well. The patient is stable. Denies having any specific complaints. Remains on room air oxygen. The patient underwent an ultrasound-guided pigtail catheter insertion today. Immediately, there was 100 cc of fluid removed and the fluid was sent for analysis. The patient remains on Rocephin and Zithromax. The white count of 18.7 with a hemoglobin 12.1. Electrolytes are all within normal limits. Blood culture is still negative. No other new complaints otherwise for now. On 04/13/2024, the patient is status post pigtail catheter insertion. Pleural fluid chemistry is consistent with an exudate with a white cell count of 731 and elevated LDH and protein. Noted since the catheter insertion, the patient has produced approximately 350 cc in the Pleur-evac. No evidence of any air leak. Repeat chest x-ray from today showed left basilar consolidation without any sizable pneumothorax. Attempted to instill alteplase today through the pigtail catheter. This failed. It is possible that the tube is kinked at this point in time. Recommend obtaining a follow-up CAT scan of the chest without contrast. Meanwhile, the patient remains in atrial fibrillation. Rate is controlled. He is off the Cardizem drip and is currently on oral Cardizem 90 mg p.o. 3 times daily. He is also on metoprolol 100 mg p.o. daily. Is on anticoagulation with Xarelto. He remains on IV antibiotics and he remains on IV Rocephin. White cell count from today is at 17.3 with a hemoglobin of 12.7 and a platelet count of 344. 04/14/2024, the patient remains stable on room air oxygen. A follow-up CAT scan of the chest was obtained today and the patient was found to have a small to moderate-sized left-sided pleural effusion with some ongoing loculation. The pigtail catheter was in a good location. Based on that, I attempted to flush again the catheter and I was able to flush it with saline. Based on that, alteplase was administered into the left hemithorax. Following that, the patient has produced an additional 400 cc of pleural fluid from the left pleural space. Clinically, he is doing well. No specific complaints. As mentioned, this was a complicated parapneumonic left-sided pleural effusion. White cell count is 17.3 with hemoglobin 4.7 and platelet count of 344. The cultures from the pleural fluid are still negative. Blood cultures also negative. The patient remains on IV Rocephin. No other significant events overnight. Remains on Levemir insulin 20 units daily and NovoLog as needed. Remains atrial fibrillation. Anticoagulation is with Xarelto. Metoprolol and milligrams p.o. daily for rate control in combination with Cardizem 90 mg p.o. 3 times daily. 04/15/2024, the patient is doing well. The patient underwent alteplase treatment through the pigtail catheter yesterday and there was a total of 700 cc of output since administration. Repeat chest x-ray was done today and shows a small left- sided pleural effusion. There is ongoing consolidation. The left hemidiaphragm is visualized on today's chest x-ray. No pleurisy. No hemoptysis. Cultures from the fluid is negative. The white cell count is 16 with a hemoglobin of 11.8. Electrolytes are all within normal limits. The patient continues to be in atrial fibrillation. The plan is to do a second dose of alteplase administration into the left pleural space today. On 04/16/2024, the patient is status post 2 alteplase treatments to the left pleural space and the patient has produced another 700 cc of pleural fluid over the past 24 hours following the second administration of alteplase. His chest x-ray continues to show some volume loss in the left lung base. I decided to proceed with a third treatment. He is doing well. Continues to have atrial fibrillation specially with mobility and activity where he becomes more tachycardic. No pleurisy. No hemoptysis. Cultures are negative. White cell count of 17, hemoglobin 11 and a platelet count of 403. BUN is 20 with a creatinine 0.9 and sodium levels at 133. The patient remains on IV Rocephin. No other significant events overnight. The patient remains on I anticoagulation with Xarelto. On 04/17/2024, the patient has already received a total of 3 infusions of alteplase into the pleural space. Most recent CAT scan of the chest that was done this morning showed some residual loculated fluid in the left upper hemithorax. The fluid collection in the left lung base is obviously smaller in size and there is improved aeration of the left lung. Cultures are negative and the patient remains on IV Rocephin. He was also having issues with atrial fibrillation and based on that the patient was started on amiodarone. He has developed diffuse maculopapular rash that is pruritic in nature. This is most like related to Rocephin and amiodarone is felt to be less likely contributing to this. The patient remains on anticoagulation with Xarelto. The patient remains on Cardizem 90 mg p.o. 3 times daily and the patient is also on metoprolol 100 mg p.o. twice a day. Amiodarone was discontinued. The patient will be given steroids regarding his maculopapular rash. No other significant events overnight. Patient remains on room air oxygen. I checked the pigtail catheter. Think the catheter itself was clogged. I unclog it and I am going to monitor the output for the next 24 hours. The patient is seen today April 18, 2024 in follow-up on the selective care unit. He is currently sitting up in a chair at the bedside. Awake and alert in no acute distress. He is maintaining good O2 saturations in the 90s on room air. He has been afebrile. Hemodynamically stable. Pleural fluid cultures revealed no growth. Blood cultures revealed no growth. White count 18.4. Hemoglobin 11.6. Sodium 136. Potassium 4.7. Bicarb 24. BUN 20. Creatinine 0.81. Glucose 181. Catheter remains in place to the left chest. There has been minimal drainage in the past 24 hours. This with a small left pleural effusion. He is continued on DuoNeb inhalations, Solu-Medrol, anticoagulated with Xarelto. Antibiotics in the form of Levaquin. The patient is seen today April 19, 2024 in follow-up on the selective care unit. He is awake and alert in no acute distress. Sitting up in a chair. Denies any shortness of breath, cough or congestion. Maintaining good O2 saturations in the 90s on room air. Pigtail catheter removed yesterday. Pleural fluid cultures revealed no growth. Blood cultures revealed no growth. Blood sugar 211. He is continued on Levaquin. Anticoagulated with Xarelto. Completing a prednisone taper. Objective - Vital Signs Vital signs: Vital Signs Temp 97.2 F L 04/19/24 11:43 Pulse 92 04/19/24 12:08 Resp 20 04/19/24 11:43 BP 159/93 04/19/24 11:43 Pulse Ox 96 04/19/24 11:43 FiO2 Intake & Output 04/18/24 04/19/24 04/19/24 18:59 06:59 18:59 Intake Total 358 118 Output Total 0 Balance 358 118 Weight 130.7 kg Intake: Oral 358 118 Output: Chest Tube Drainage 0 Pleural Catheter Left 0 Posterior Chest Other: Voiding Method Urinal Urinal Urinal # Voids 1 - Exam GENERAL EXAM: Alert, active, very pleasant 58-year-old male, on room air, comfortable in no apparent distress. HEAD: Normocephalic. EYES: Normal reaction of pupils, equal size. NOSE: Clear with pink turbinates. THROAT: No erythema or exudates. NECK: No masses, no JVD. CHEST: No chest wall deformity. Left-sided pigtail catheter removed. LUNGS: Equal air entry with the left lung base. CVS: S1 and S2 normal with no audible murmur, regular rhythm. ABDOMEN: No hepatosplenomegaly, normal bowel sounds, no guarding or rigidity. SPINE: No scoliosis or deformity SKIN: No rashes CENTRAL NERVOUS SYSTEM: No focal deficits, tone is normal in all 4 extremities. EXTREMITIES: There is no peripheral edema. No clubbing, no cyanosis. Peripheral pulses are intact. - Labs CBC & Chem 7: 04/18/24 07:23 04/18/24 07:23 Labs: Abnormal Lab Results - Last 24 Hours (Table) 04/18/24 04/18/24 04/19/24 Range/Units 16:51 19:59 06:03 POC Glucose (mg/dL) 230 H 290 H 199 H (70-110) mg/dL 04/19/24 Range/Units 11:54 POC Glucose (mg/dL) 211 H (70-110) mg/dL Assessment and Plan Assessment: Parapneumonic loculated left-sided pleural effusion, status post pigtail catheter insertion and alteplase treatment x 3 with good output and some improvement in volume status and left lung base. Clinically stable. Noted the output since the third administration has dropped significantly. Repeat CAT scan of the chest showed improved aeration of the left lung base. Improvement in the left lower lobe pleural effusion. Some residual pocket in the left upper lobe is still present. Pigtail catheter removed Pleuritic left-sided chest wall pain likely secondary to pneumonia and the patient was treated on outpatient basis with Zithromax, currently on Levaquin, pleuritic chest pain essentially recovered Shortness of breath secondary to above Acute hypoxic respiratory failure, recovered and on room air oxygen Chronic atrial fibrillation with rapid ventricular response, rate is controlled and the patient is currently on a combination of metoprolol and Cardizem and anticoagulation with Xarelto. Hypertension Hyperlipidemia Diabetes mellitus Diffuse maculopapular rash, likely secondary to Rocephin. Plan The patient was seen and evaluated Medications reviewed Pigtail catheter removed yesterday Cleared for discharge from the pulmonary standpoint Complete a course of Levaquin Follow-up in the office in 1 week I have personally seen and examined the patient, performed the documentation and the assessment and plan as written. Number of minutes spent on the visit: 10.
--- NOTE | 2024-04-21 14:49 | P.DS ---
Providers Date of admission: 04/10/24 14:19 Expected date of discharge: 04/19/24 Attending physician: Duc Figueroa MD Consults: 04/10/24 13:56 Consult Physician Urgent Consulting Provider: Xander Quesada Consult Reason/Comments: A-fib RVR Do you want consulting provider notified?: Yes 04/11/24 08:48 Consult Physician Routine Consulting Provider: Edu Burroughs Consult Reason/Comments: pneumonia, pl eff Do you want consulting provider notified?: Yes Primary care physician: Tamanna Steinbergbagh [facility] Course: Final diagnoses: Chronic atrial fibrillation with RVR, currently sinus rhythm Parapneumonic loculated left-sided pleural effusion, status post pigtail catheter placement, exudative,Status post alteplase instillation x 3. Pigtail discontinued. Pleuritic left-sided chest wall pain secondary to the above, improving. Shortness of breath secondary to the above with acute hypoxic respiratory failure, improved Elevated D-dimer, pulmonary embolism ruled out Leukocytosis secondary to the above Diabetes mellitus, hemoglobin A1c 7.1 Incidental finding of nonspecific 1.7 cm left adrenal mass-benign etiology favored based on size. Further evaluation with outpatient CT/MRI Hypertension, dyslipidemia Hospital course: This is a 58-year-old gentleman admitted with persistent atrial fibrillation with RVR, maintained on Cardizem drip. CTA reporting moderate size loculated left-sided pleural fluid collection with associated compressive atelectasis, nonspecific 1.7 cm left adrenal mass-benign etiology favored based on size. Maintained on azithromycin, ceftriaxone. Afebrile, WBC Improving, decreased to 15.4. Hemoglobin 11.7, MCV 90.3, platelets 280, electrolytes and renal function stable. T. bili 1, AST normalized, ALT decreased to 71, alk phos increased to 204. Maintaining O2 sats in the low 90s on 2 L nasal cannula. 04/12/2024 continues on ceftriaxone, azithromycin evaluated by pulmonary recommending pigtail catheter placement with probable thrombolytic therapy secondary to left sided loculated pleural effusion, complicated possibly secondary to post pneumonia. Maintaining O2 sats of 94% on room air. Denies shortness of breath. Reports "coughing spells with sweats". Afebrile, WBC increased to 18.7. maintained on Cardizem drip, telemetry atrial fibrillation with controlled ventricular rate. Bicarb 23, BUN 18, creatinine 0.94. Hemoglobin A1c 7.1. Blood sugars better controlled on Levemir and NovoLog sliding scale insulins. 04/13/2024 Telemetry atrial fibrillation, heart rates currently in the 120s, ted ntained on oral Cardizem, metoprolol, valsartan. Anticoagulated with Xarelto. continues on ceftriaxone Tmax 101.2, WBC decreased to 17.3. Status post pigtail catheter placement. Follow chest x-ray reporting left-sided consolidation and small pleural effusion, no sizable pneumothorax. Pulmonary attempted to instill alteplase via pigtail catheter, unsuccessfully. Chest CT ordered. reports mild shortness of breath, productive cough with yellow sputum. 04/14/2024 reports he feels better today with cough less productive. telemetry atrial fibrillation heart rates better controlled, low 100s. Tmax 99.7. Maintaining O2 sats in the low 90s on room air .chest CT reports small to moderate left pleural effusion, possibly loculated, chest tube remains in position, consolidation involving left lung likely on the basis of compressive atelectasis from the pleural fluid. 04/15/2024 remains in atrial fibrillation, had been controlled throughout the night this morning prior to a.m. med administration, heart rates up to 150s. Denies chest pain, palpitations or shortness of breath. Alteplase instilled yesterday. Reports improved breathing, less pressure. Positive cough. Maintaining O2 sats of 93% on room air. Tmax 100.1, chest x-ray pending. Labs pending. Blood sugars controlled. 04/18/2024 potential DC of pigtail catheter ,chest x-ray pending. Yesterday developed rash after amiodarone drip initiated. Antibiotics adjusted with addition of steroids with significant clinical improvement. Telemetry sinus rhythm. Sitting up in chair, reports ambulated in the hallway, tolerated well. Mild nonproductive cough. Chest x-ray pending with potential DC of pigtail catheter.maintain IV antibiotics .aggressive pulmonary toileting with incentive spirometer reinforced. antiarrhythmics as per cardiology. Discharge planning in progress for the next 24 hours pending DC of pigtail cath. Pigtail discontinued yesterday. Pleural fluid cultures reported no growth. Blood cultures reported no growth. Maintained on antibiotics of Levaquin. Denies chest pain, palpitations or shortness of breath. Maintaining O2 sats in the 90s on room air. Cleared by cardiology and pulmonary for discharge. Patient will be discharged home today in a stable condition with guarded prognosis. The impression and plan of care has been dictated as directed. : I performed a history and examination of this patient, discussed the same with the dictator. I agree with the dictator's note ,documented as a scribe. Any additional findings or plans will be noted. Patient Condition at Discharge: Stable Plan - Discharge Summary New Discharge Prescriptions: New Levofloxacin [Levaquin] 750 mg PO DAILY@1800 3 Days #3 tab predniSONE 10 mg PO DIRECTED #30 tab Acetaminophen Tab [Tylenol] 650 mg PO Q6HR PRN tab PRN Reason: Fever And/ Or Pain Famotidine [Pepcid] 20 mg PO DAILY #30 tablet Diltiazem Oral [Cardizem*] 90 mg PO TID #270 tab Metoprolol Succinate (ER) [Toprol XL] 100 mg PO BID #60 tab Continue Multivitamins, Thera [Multivitamin (formulary)] 1 tab PO DAILY Flecainide [Tambocor] 50 mg PO BID metFORMIN HCL 1,000 mg PO BID Atorvastatin [Lipitor] 10 mg PO DAILY Semaglutide [Ozempic] 2 mg SQ TH Albuterol Sulfate [Albuterol Sulfate Hfa] 2 puff INHALATION RT-BID Rivaroxaban [Xarelto] 20 mg PO DAILY Discontinued Valsartan 320 mg PO DAILY Metoprolol Succinate (ER) [Toprol Xl] 100 mg PO DAILY Azithromycin [Zithromax Z Pack] See Taper PO DAILY No Action Testosterone [Axiron] 30 mg TOPICAL DAILY Discharge Medication List Albuterol Sulfate [Albuterol Sulfate Hfa] 2 puff INHALATION RT-BID 04/10/24 [History] Atorvastatin [Lipitor] 10 mg PO DAILY 04/10/24 [History] Flecainide [Tambocor] 50 mg PO BID 04/10/24 [History] Multivitamins, Thera [Multivitamin (formulary)] 1 tab PO DAILY 04/10/24 [History] Rivaroxaban [Xarelto] 20 mg PO DAILY 04/10/24 [History] Semaglutide [Ozempic] 2 mg SQ TH 04/10/24 [History] Testosterone [Axiron] 30 mg TOPICAL DAILY 04/10/24 [History] metFORMIN HCL 1,000 mg PO BID 04/10/24 [History] Acetaminophen Tab [Tylenol] 650 mg PO Q6HR PRN tab 04/19/24 [Rx] Diltiazem Oral [Cardizem*] 90 mg PO TID #270 tab 04/19/24 [Rx] Famotidine [Pepcid] 20 mg PO DAILY #30 tablet 04/19/24 [Rx] Levofloxacin [Levaquin] 750 mg PO DAILY@1800 3 Days #3 tab 04/19/24 [Rx] Metoprolol Succinate (ER) [Toprol XL] 100 mg PO BID #60 tab 04/19/24 [Rx] predniSONE 10 mg PO DIRECTED #30 tab 04/19/24 [Rx] Follow up Appointment(s)/Referral(s): Xander Quesada MD [STAFF PHYSICIAN] - 1 Week (call office when open to make fol low up appointment) Tamanna Figueroa DO [Primary Care Provider] - 04/21/24 8:45 am Edu Burroughs MD [STAFF PHYSICIAN] - 1 Week (please call office when open to make follow up appointment) Patient Instructions/Handouts: A-fib (Atrial Fibrillation) (DC) Activity/Diet/Wound Care/Special Instructions: Confirm cardiology follow-up appointment prior to discharge. Discharge Disposition: HOME SELF-CARE
== END 2024-04-19 13:51 | disposition home or self-care (01) | DRG 308 ==
LOC: EC 12:12 → 3SCARD 14:19
PROVIDERS: ADMIT Family Medicine; ATTEND Family Medicine
PROC: 0W9B30Z Drainage of Left Pleural Cavity with Drainage Device, Percutaneous Approach (ICD-10-PCS; 2024-04-12)
PROC: 3E0L317 Introduction of Other Thrombolytic into Pleural Cavity, Percutaneous Approach (ICD-10-PCS; principal; 2024-04-13)
DX: I48.19 Other persistent atrial fibrillation (principal); J18.9 Pneumonia, unspecified organism; J96.01 Acute respiratory failure with hypoxia; J90 Pleural effusion, not elsewhere classified; E78.5 Hyperlipidemia, unspecified; I10 Essential (primary) hypertension; E11.9 Type 2 diabetes mellitus without complications; E27.9 Disorder of adrenal gland, unspecified; L29.9 Pruritus, unspecified; T36.1X5A Adverse effect of cephalosporins and other beta-lactam antibiotics, initial encounter; Z79.01 Long term (current) use of anticoagulants; Z79.4 Long term (current) use of insulin; Z79.84 Long term (current) use of oral hypoglycemic drugs; Z79.899 Other long term (current) drug therapy
CPT/HCPCS: 32551; 36415; 71045; 71046; 71250; 71275; 76604; 80048; 80053; 82945; 83036; 83615; 83735; 83880; 84145; 84157; 84484; 85025; 85379; 85610; 85730; 87040; 87070; 87075; 87205; 88108; 88305; 89050; 93005; 93306; 94640; 94760; 96365; 96366; 96368; 99291